=== PATIENT | female | born 1965 | race Caucasian/White ===

== ENCOUNTER 2018-10-03 20:41 | Inpatient (IN) | payer SELFPAY ==
[~2018-10-03] VITALS: Ht 185.4 cm; Wt 104.3 kg
[2018-10-03] MEDS ORDERED: BUPIVACAINE 0.5% 30 ML (SENSORCAINE) VIAL ONE (21:03)
[2018-10-03] MEDS ORDERED: BUPIVACAINE 0.5% 30 ML (SENSORCAINE) VIAL INJ ONE (21:30)
--- NOTE | 2018-10-03 21:31 | ED Lower Extremity ---
General Chief Complaint: Lower Extremity Stated Complaint: R TOE INFECTION Nursing Triage Note: pt cut her ingrown toenail out a month and a half ago. Pt left big toe is infected et draining. Pt soaked toe in epsom salt and betadine. Nursing Sepsis Screen: No Definite Risk Source: patient Exam Limitations: no limitations History of Present Illness Date Seen by Provider: Oct 03, 2018 Time Seen by Provider: 21:28 Initial Comments To ER left great toe redness swelling and pain this is been ongoing for about 3 days, she saw primary care for this and was started on antibiotic cephalexin. Denies improvement and she then stubbed her toe, since then and has burst open and is now draining pus. Onset: just prior to arrival Severity: moderate Pain/Injury Location: left 1st toe Method of Injury: unknown Allergies and Home Medications Allergies Coded Allergies: cephalexin (Verified Allergy, Mild, 10/04/18) ciprofloxacin (Verified Allergy, Mild, 10/04/18) nitrofurantoin (Verified Allergy, Mild, 10/04/18) Uncoded Allergies: TAPE (Allergy, Intermediate, 10/04/18) BACTRIUM (Allergy, Mild, 10/04/18) CODIENE (Allergy, Mild, 10/04/18) Home Medications Cephalexin 500 Mg Capsule, 500 MG PO TID, (Reported) 10 DAY SUPPLY FILLED 09-26-18 Ibuprofen 200 Mg Tablet, 800 MG PO Q8H PRN for PAIN-MILD, (Reported) Patient Home Medication List Home Medication List Reviewed: Yes Review of Systems Constitutional: see HPI; No chills, No fever EENTM: see HPI Respiratory: no symptoms reported Cardiovascular: no symptoms reported Genitourinary: no symptoms reported Musculoskeletal: see HPI Skin: no symptoms reported Psychiatric/Neurological: No Symptoms Reported Past Ptbqxhe-Yqhrwx-Ildqwr Hx Patient Social History Alcohol Use: Occasionally Uses Alcohol Beverage of Choice: Beer Recreational Drug Use: No Smoking Status: Current Everyday Smoker Recent Foreign Travel: No Contact w/Someone Who Travel: No Recent Infectious Disease Expo: Yes Recent Hopitalizations: No Immunizations Up To Date PED Vaccines UTD: Yes Seasonal Allergies Seasonal Allergies: No Past Medical History Surgeries: Yes (L KNEE) Section, Orthopedic Respiratory: No Cardiac: No Neurological: No Genitourinary: No Gastrointestinal: No Musculoskeletal: Yes (ATHRITIS OF THE LUMBAR SPINE) Arthritis Endocrine: No HEENT: No Cancer: No Psychosocial: No Integumentary: No Blood Disorders: No Adverse Reaction/Blood Tranf: No Physical Exam Vital Signs Vital Signs - First Documented 10/03/18 20:47 Temp 98.8 B/P (MAP) 162/68 (99) Pulse Ox 100 Capillary Refill : Less Than 3 Seconds Height, Weight, BMI Height: 6'1.00" Weight: 230lbs. oz. 104.921777ym; BMI Method:Stated General Appearance: WD/WN, no apparent distress Respiratory: no respiratory distress, no accessory muscle use Hips: bilateral hip non-tender, bilateral hip normal inspection, bilateral hip normal range of motion Legs: bilateral leg non-tender, bilateral leg normal inspection, bilateral leg normal range of motion Knees: bilateral knee non-tender, bilateral knee normal inspection, bilateral knee normal range of motion Ankles: bilateral ankle non-tender Feet: left foot other (swelling redness and fluctuance with some drainage of purulent material to the dorsal aspect proximal phalanx left great toe. There is an associated paronychia to the lateral aspect of the great toenail.) Neurologic/Psychiatric: alert, normal mood/affect, oriented x 3 Skin: normal color Procedures/Interventions I&D : Blade Size: 11 Progress Anesthetize recently with bupivacaine and locally with 5 mL of 1% lidocaine without epinephrine. Incision was made with an area of maximum fluctuance with an 11 blade scalpel. Large amount of purulent material expressed. The ingrown toenail/paronychia was treated with removal of the great toenail. A large amount of present material came from this as well, there does seem to be a tract between the paronychia and the abscess to the dorsal aspect proximal phalanx. Progress/Results/Core Measures Results/Orders Micro Results Microbiology 10/03/18 Gram Stain - Final, Resulted 10/03/18 Wound Culture - Preliminary, Resulted Gram Pos Mixed Bacterial Raissa My Orders Orders - MELIZA KEARNS APRN Bupivacaine 0.5% Injection (Sensorcaine (10/03/18 21:30) Rx-Hydrocodone/Apap 5-325 Mg (Rx-Vicodin (10/03/18 21:45) Sulfamethoxazole/Trimet Ds Tab (Bactrim (10/03/18 21:45) Lidocaine 1% Inj 20 Ml (Xylocaine 1% Inj (10/03/18 21:46) Foot, Left, 3 Views (10/03/18 21:59) Cbc With Automated Diff (10/03/18 22:24) Comprehensive Metabolic Panel (10/03/18 22:24) Blood Culture (10/03/18 22:24) Protime With Inr (10/03/18 22:24) Lactic Acid Analyzer (10/03/18 22:24) Piperacillin/Tazobactam (Bulk) (Zosyn In (10/03/18 22:30) Medications Given in ED Vital Signs/I&O 10/03/18 20:47 Temp 98.8 B/P (MAP) 162/68 (99) Pulse Ox 100 Blood Pressure Mean: 99 Departure Communication (Admissions) Time/Spoke to Admitting Phy: 22:31 Did an x-ray, shows erosion of the tip of the great toe. Discussed this with Dr. Dr. Hernadez. We'll admit for IV antibiotics, use Zosyn and vancomycin consult Dr. Francis in the morning. Superficial and deep peroneal nerves were blocked at the anterior aspect of the ankle using 0.5% bupivacaine 6 ml Impression Primary Impression: Abscess of left great toe Additional Impression: Paronychia due to ingrown nail Disposition: ADMITTED INPATIENT Condition: Stable Admissions Decision to Admit Reason: Admit from ER (General) Decision to Admit/Date: Oct 03, 2018 Time/Decision to Admit Time: 22:00 Departure-Patient Inst. Decision time for Depature: 21:30 Referrals: SUKI HERNADEZ DO (PCP/Family) Primary Care Physician Patient Instructions: Paronychia, Skin Abscess Add. Discharge Instructions: 1. Return to the emergency room for any concerns 2. Follow-up with Dr. Dr. Hernadez later this week for recheck. Call tomorrow to make an appointment to be seen either tomorrow or the next day.. Continue to take the cephalexin, at the Bactrim antibiotics. Pain medication as directed. You may shower starting tomorrow letting water run over this but do not soak it in water such as a hot tub or swimming pool for 1-2 weeks. All discharge instructions reviewed with patient and/or family. Voiced understanding. Copy Copies To 1: SUKI HERNADEZ PETER J APRN Oct 03, 2018 21:31
[2018-10-03] MEDS ORDERED: RX-HYDROCODONE/APAP 5/325 MG #4 TAB PK PO PRN (21:45)
[2018-10-03] MEDS ORDERED: TRIM/SULFAMETH 160/800 (SEPTRA DS) TAB PO ONE (21:45)
[2018-10-03] MEDS ORDERED: LIDOCAINE 1% INJ 20 ML 20 ML VIAL ONE (21:46)
[2018-10-03] MEDS ORDERED: HYDR-4226 PO (22:03)
[2018-10-03] MEDS ORDERED: SULF1TAB35 PO (22:03)
[2018-10-03] MEDS ORDERED: PIPERACILLIN/TAZOBACTAM (BULK) 4.5 GM in NS (IVPB) 100 ML IV ONE (22:30)
[2018-10-03] MEDS ORDERED: PIPERACILLIN/TAZO 4.5 GM VIAL (ZOSYN) IV ONE (22:37)
[2018-10-03] MEDS ORDERED: NS (IVPB) 100 ML ONE (22:37)
[2018-10-03] MEDS ORDERED: ALPRAZolam 0.25 MG (XANAX) TAB PO ONE (22:45)
[2018-10-03 23:22] LABS: BASOPHILS # (AUTO) 0.1 10^3/uL (0.0-0.1); BASOPHILS % (AUTO) 0 % (0-10); EOSINOPHILS # (AUTO) 0.1 10^3/uL (0.0-0.3); EOSINOPHILS % (AUTO) 1 % (0-10); HEMATOCRIT 42 % (35-52); HEMOGLOBIN 13.9 G/DL (11.5-16.0); LYMPHOCYTES # (AUTO) 3.4 X 10^3 (1.0-4.0); LYMPHOCYTES % (AUTO) 30 % (12-44); MEAN CORPUSCULAR HEMOGLOBIN 29 PG (25-34); MEAN CORPUSCULAR HGB CONC 33 G/DL (32-36); MEAN CORPUSCULAR VOLUME 88 FL (80-99); MEAN PLATELET VOLUME 10.7 FL (7.4-10.4); MONOCYTES # (AUTO) 0.6 X 10^3 (0.0-1.0); MONOCYTES % (AUTO) 6 % (0-12); NEUTROPHILS # (AUTO) 7.1 X 10^3 (1.8-7.8); NEUTROPHILS % (AUTO) 63 % (42-75); PLATELET COUNT 259 10^3/uL (130-400); RED CELL DISTRIBUTION WIDTH 16.9 % (10.0-14.5); WHITE BLOOD COUNT 11.3 10^3/uL (4.3-11.0)
[2018-10-03 23:35] LABS: INR 1.2 (0.8-1.4); PROTHROMBIN TIME PATIENT 15.5 SEC (12.2-14.7)
[2018-10-03 23:44] LABS: ALANINE AMINOTRANSFERASE 13 U/L (0-55); ALBUMIN 4.1 GM/DL (3.2-4.5); ALKALINE PHOSPHATASE 64 U/L (40-136); BILIRUBIN,TOTAL 1.1 MG/DL (0.1-1.0); BUN/CREATININE RATIO 15; CALCIUM 9.8 MG/DL (8.5-10.1); CARBON DIOXIDE 20 MMOL/L (21-32); CHLORIDE 105 MMOL/L (98-107); CREATININE SERUM 0.86 MG/DL (0.60-1.30); GFR ESTIMATED > 60; GLUCOSE 141 MG/DL (70-105); POTASSIUM 3.7 MMOL/L (3.6-5.0); SODIUM 139 MMOL/L (135-145)
[2018-10-04] VITALS (7 sets, daily range): BP systolic 98–124; BP diastolic 68–87
[2018-10-04] MEDS ORDERED: VANCOMYCIN 1 GM/NS 250 ML IVPB IV SCH ×2 (01:06)
[2018-10-04] MEDS ORDERED: VANCOMYCIN INJECTION 1GM (OMNI 250 ML IV ONE (01:36)
[2018-10-04] MEDS: LACTATED RINGERS 1,000 ML IV SCH ×4 (01:39→20:09)
[2018-10-04] MEDS ORDERED: PIPERACILLIN/TAZO 4.5 GM VIAL (ZOSYN) IV ONE (04:34)
[2018-10-04] MEDS ORDERED: NS (IVPB) 100 ML ONE (04:35)
[2018-10-04] MEDS: PIPERACILLIN/TAZO 4.5 GM/NS 100 ML IV SCH ×6 (04:52→20:08)
[2018-10-04] MEDS: HYDROcodone/APAP 5 MG/325 MG (LORTAB) TAB PO PRN ×2 (05:10→21:47)
[2018-10-04 05:33] LABS: BASOPHILS % (AUTO) 0 % (0-10); EOSINOPHILS # (AUTO) 0.1 10^3/uL (0.0-0.3); EOSINOPHILS % (AUTO) 1 % (0-10); HEMATOCRIT 39 % (35-52); HEMOGLOBIN 12.9 G/DL (11.5-16.0); LYMPHOCYTES # (AUTO) 2.6 X 10^3 (1.0-4.0); LYMPHOCYTES % (AUTO) 31 % (12-44); MEAN CORPUSCULAR HEMOGLOBIN 29 PG (25-34); MEAN CORPUSCULAR HGB CONC 33 G/DL (32-36); MEAN CORPUSCULAR VOLUME 88 FL (80-99); MEAN PLATELET VOLUME 10.8 FL (7.4-10.4); MONOCYTES # (AUTO) 0.5 X 10^3 (0.0-1.0); MONOCYTES % (AUTO) 5 % (0-12); NEUTROPHILS # (AUTO) 5.3 X 10^3 (1.8-7.8); NEUTROPHILS % (AUTO) 63 % (42-75); PLATELET COUNT 214 10^3/uL (130-400); RED CELL DISTRIBUTION WIDTH 16.7 % (10.0-14.5); WHITE BLOOD COUNT 8.5 10^3/uL (4.3-11.0)
[2018-10-04 05:52] LABS: ALANINE AMINOTRANSFERASE 11 U/L (0-55); ALBUMIN 3.6 GM/DL (3.2-4.5); ALKALINE PHOSPHATASE 54 U/L (40-136); BILIRUBIN,TOTAL 1.2 MG/DL (0.1-1.0); BUN/CREATININE RATIO 17; CALCIUM 9.4 MG/DL (8.5-10.1); CARBON DIOXIDE 20 MMOL/L (21-32); CHLORIDE 108 MMOL/L (98-107); CREATININE SERUM 0.75 MG/DL (0.60-1.30); GFR ESTIMATED > 60; GLUCOSE 130 MG/DL (70-105); POTASSIUM 3.6 MMOL/L (3.6-5.0); SODIUM 139 MMOL/L (135-145); TOTAL PROTEIN 6.2 GM/DL (6.4-8.2)
--- NOTE | 2018-10-04 07:30 | Diagnostic Imaging Report ---
Clinical indication: Pain and abscess of the left foot great toe. Checking for infection. Exam: X-ray left foot, 3 views. Comparison: None. Findings: There is soft tissue swelling involving the first toe. There is significant bony erosions and destructive appearance of the distal phalanx of the first digit concerning for osteomyelitis. This erosive appearance extends to the first IP joint. There is no subcutaneous air seen. There is no other areas of bony erosive or destructive changes seen. There are mildly hypertrophic spurs involving first MTP joint. There is spurring of the posterior aspect of the fifth metatarsal bone. Hypertrophic calcaneal spurs at the plantar and Achilles attachment is seen. There is mild spurring of the dorsal midfoot. Impression: 1.: There is soft tissue swelling adjacent to the first toe. There is bony erosive change and bony destructive appearance of the distal phalanx of the first toe concerning for osteomyelitis. 2: Degenerative disease of the left foot. Dictated by: Dictated on workstation # [id number]
--- NOTE | 2018-10-04 08:10 | History & Physicial ---
History of Present Illness History of Present Illness Reason for visit/HPI Patient came out to emergency room last night. Patient has history of ingrown toenail 6 weeks ago area Patient cardioversion toenail. Patient was on Keflex and doing better. Patient hit her left big toe again and started to hurt got infected Patient has a left big toe abscess and had trouble walking. Patient use better 9 and soaked in Epsom salt. X-ray of big toe shows osteomyelitis. Previous surgeries to knees operations, , and tubal ligation Date of Admission Oct 03, 2018 at 22:33 Time Seen by a Provider: 08:05 I consulted on this patient on 10/04/18 08:05 Attending Physician Chente Hernadez DO Admitting Physician Chente Hernadez DO Consult Allergies and Home Medications Allergies Coded Allergies: cephalexin (Verified Allergy, Mild, 10/04/18) ciprofloxacin (Verified Allergy, Mild, 10/04/18) nitrofurantoin (Verified Allergy, Mild, 10/04/18) Uncoded Allergies: TAPE (Allergy, Intermediate, 10/04/18) BACTRIUM (Allergy, Mild, 10/04/18) CODIENE (Allergy, Mild, 10/04/18) Home Medications Hydrocodone/Acetaminophen 1 Each Tablet, 1 TAB PO Q6H Do not fill unless Bactrim is also filled Prescribed by: MELIZA KEARNS on 10/03/182202 Sulfamethoxazole/Trimethoprim 1 Each Tablet, 1 EACH PO BID Prescribed by: MELIZA KEARNS on 10/03/182202 Patient Home Medication List Home Medication List Reviewed: No Past Ebwmygv-Dojsdq-Snnblm Hx Patient Social History Alcohol Use: Occasionally Uses Alcohol Beverage of Choice: Beer Recreational Drug Use: No Smoking Status: Current Everyday Smoker Recent Foreign Travel: No Contact w/other who traveled: No Recent Hopitalizations: No Recent Infectious Disease Expo: Yes Immunizations Up To Date Pediatric: Yes Seasonal Allergies Seasonal Allergies: No Surgeries Yes (L KNEE) Section, Orthopedic Respiratory No Cardiovascular No Neurological No Genitourinary No Gastrointestinal No Musculoskeletal Yes (ATHRITIS OF THE LUMBAR SPINE) Arthritis Endocrine History of Endocrine Disorders: No HEENT History of HEENT Disorders: No Cancer No Psychosocial History of Psychiatric Problem: No Integumentary History of Skin or Integumenta: No Blood Transfusions History of Blood Disorders: No Adverse Reaction to a Blood Tr: No Review of Systems Constitutional: no symptoms reported, other EENTM: no symptoms reported Respiratory: no symptoms reported Cardiovascular: no symptoms reported Gastrointestinal: no symptoms reported Genitourinary: no symptoms reported Physical Exam Vital Signs Vital Signs - First Documented 10/03/18 10/03/18 20:47 23:36 Temp 98.8 Pulse 73 Resp 18 B/P (MAP) 162/68 (99) Pulse Ox 100 O2 Delivery Room Air Capillary Refill : Less Than 3 Seconds Height, Weight, BMI Height: 6'1.00" Weight: 230lbs. oz. 104.484024ck; BMI Method:Stated General Appearance: No Apparent Distress, WD/WN Eyes: Bilateral Eye Normal Inspection HEENT: Normal ENT Inspection Neck: Full Range of Motion, Normal Inspection Respiratory: Chest Non Tender, Lungs Clear, No Accessory Muscle Use, No Respiratory Distress Cardiovascular: Regular Rate, Rhythm, No Murmur Gastrointestinal: Non Tender, Soft Assessment/Plan Assessment and Plan Osteomyelitis of left big toe. Abscess left big toe 2 Admission Diagnosis Admission Status: Observation Clinical Quality Measures DVT/VTE Risk/Contraindication: Risk Factor Score Per Nursin RFS Level Per Nursing on Admit: 4+=Very High CHENTE HERNADEZ DO Oct 04, 2018 08:10
[2018-10-04] MEDS: NICOTINE 2 MG LOZENGE (COMMIT) MM PRN ×3 (08:32→19:43)
[2018-10-04] MEDS ORDERED: NICOTINE 21 MG (NICODERM) PATCH TD SCH (09:00)
[2018-10-04] MEDS ORDERED: IBUP-30 PO (09:09)
[2018-10-04] MEDS ORDERED: CEPH500C PO (09:09)
--- NOTE | 2018-10-04 09:10 | NUR ---
SPOKE WITH THE PATIENT ABOUT HER MEDICATIONS. SHE STATES SHE WAS TAKING KEFLEX PRIOR TO ADMISSION, I ADDED IT TO THE MED REC AND VERIFIED DATE, DIRECTIONS, AND QUANTITY WITH THE EXT MED HX. SHE STATES SHE TAKES IBU OTC NEEDED. SHE REPORTS SHE TAKES 5 AT A TIME HOWEVER I ENTERED IT ON THE MED REC THE RECOMMENDED DOSE OF 4 TABS PRN. THE ER LOOKS LIKE THEY WERE GOING TO PRESCRIBED SOME MEDICATION AND THEY WERE PRINTED HOWEVER PATIENT WAS ADMITTED, I REMOVED THOSE NEW ORDERS FROM THE MED REC AT THIS TIME.
[2018-10-04] MEDS: VANCOMYCIN 1,750 MG/NS 500 ML IVPB IV SCH ×4 (10:32→23:44)
--- NOTE | 2018-10-04 12:47 | Podiatry Progress Note ---
Standard Progress Note Progress Notes/Assess & Plan Date Seen by a Provider: Oct 04, 2018 Time Seen by a Provider: 12:43 Progress/Assessment & Plan Consult dictated. Continue with IV antibiotics and wound care. Discussed amputation of the left hallux with patient and will anticipate surgery tomorrow morning or Tuesday depending on patient's response to current therapy. Final Diagnosis Osteomyelitis left hallux. BAEL LAZCANO DPM Oct 04, 2018 12:47
[2018-10-04] MEDS: SILVASORB GEL 1.5 OZ TP SCH ×2 (14:01→20:09)
--- NOTE | 2018-10-04 15:11 | CONSULTATION REPORT ---
DATE OF SERVICE: REASON FOR CONSULTATION: Footcare, left. HISTORY OF PRESENT ILLNESS: This 53-year-old female was admitted through the ER secondary to a painful left foot. She indicates that about approximately a month ago, she was working on her ingrown toenail which may have caused more of a problem for the foot in regard to infection. She noticed that the foot became more painful, swollen, and drained some purulence. Since she had an incision and drainage performed last night through the ER and with her IV antibiotics, her foot is feeling much better and she denies any current fever, chills, nausea or vomiting. PAST MEDICAL HISTORY: Includes knee surgery, section and orthopedic surgery. She reports arthritis of the lumbar spine. SOCIAL HISTORY: The patient has an occasional beer. She is a current every day smoker. She denies illicit drug use. ALLERGIES: THE PATIENT IS ALLERGIC TO BACTRIM, CODEINE, TAPE, CEPHALEXIN AND NITROFURANTOIN. PHYSICAL EXAMINATION: VITAL SIGNS: The patient is currently afebrile. LOWER EXTREMITY EXAMINATION: The patient has palpable pedal pulses, left foot. Light touch sensation is grossly intact, left foot. She does have some edema, left foot but not excessive as compared to the contralateral limb. The patient has an erythematous left hallux to the midpoint of the proximal phalanx. No proximal streaking. No malodor. There is a full thickness wound to the dorsal aspect of the interphalangeal joint that measures approximately 5 x 5 mm. There is no nail plate left hallux with underlying fibrotic and tissue. LABORATORY DATA: X-rays were reviewed, which indicate significant destruction of the distal phalanx with osteolysis noted. Currently, the x-rays of the proximal phalanx shows no significant osteolysis. White cell count was 11.3 yesterday and this morning it is 8.5. The microbiology report has not come back for the culture and sensitivity. ASSESSMENT: Osteomyelitis of distal phalanx, left hallux and abscess, left hallux. PLAN: Various treatment options were discussed with the patient today. We discussed conservative and surgical options. In my opinion, the surgical options is the conservative treatment, which will include removal of the infected distal phalanx with the possibility of removal of the proximal phalanx depending on clinical signs and symptoms surgically. She will continue with her IV antibiotics. Since she has had a remarkable reduction in symptoms and clinical appearance from yesterday to today with the short dose of IV antibiotics, we will continue with that treatment. We will go to surgical treatment either tomorrow or the following day depending on her clinical reaction to current treatment. She is to have wound care performed twice a day with Silvadene and Xeroform and continue with her IV antibiotics. Job ID: [id number] DocumentID: [id number] Dictated Date: 10/04/2018 12:54:00 Network Support Analyst Date: 10/04/2018 15:10:23 Dictated By: RUDY SNIDER
--- NOTE | 2018-10-04 18:30 | NUR ---
DR SHAH HERE TO SEE PATIENT. HE WILL DO SURGERY ON TUESDAY. CONSENT SIGNED, ADD ON FAXED TO SURGERY, CONFERENCE MANAGER NOTIFIED AND MRSA NASAL SWAB COLLECTED. PATIENT WILL BE NPO AT MIDNIGHT TUESDAY NIGHT. DR LAZCANO UNDID THE DRESSING TO LOOK AT THE LEFT GREAT TOE. DRESSING REAPPLIED TO LEFT GREAT TOE. PATIENT TOLERATED THE PROCEDURE WELL.
[2018-10-04] MEDS: LORazepam INJ 2 MG/ML (ATIVAN) VIAL IVP PRN (23:45)
[2018-10-05 04:30] VITALS: BP 116/92
[2018-10-05] MEDS: PIPERACILLIN/TAZO 4.5 GM/NS 100 ML IV SCH ×6 (04:35→20:13)
[2018-10-05] MEDS: LACTATED RINGERS 1,000 ML IV SCH ×4 (04:35→20:13)
[2018-10-05 07:00] LABS: BASOPHILS % (AUTO) 1 % (0-10); EOSINOPHILS # (AUTO) 0.1 10^3/uL (0.0-0.3); EOSINOPHILS % (AUTO) 2 % (0-10); HEMATOCRIT 39 % (35-52); HEMOGLOBIN 12.9 G/DL (11.5-16.0); LYMPHOCYTES # (AUTO) 2.4 X 10^3 (1.0-4.0); LYMPHOCYTES % (AUTO) 36 % (12-44); MEAN CORPUSCULAR HEMOGLOBIN 29 PG (25-34); MEAN CORPUSCULAR HGB CONC 33 G/DL (32-36); MEAN CORPUSCULAR VOLUME 88 FL (80-99); MEAN PLATELET VOLUME 10.8 FL (7.4-10.4); MONOCYTES # (AUTO) 0.3 X 10^3 (0.0-1.0); MONOCYTES % (AUTO) 5 % (0-12); NEUTROPHILS # (AUTO) 3.9 X 10^3 (1.8-7.8); NEUTROPHILS % (AUTO) 57 % (42-75); PLATELET COUNT 214 10^3/uL (130-400); RED CELL DISTRIBUTION WIDTH 16.9 % (10.0-14.5); WHITE BLOOD COUNT 6.8 10^3/uL (4.3-11.0)
--- NOTE | 2018-10-05 07:43 | Progress Note ---
Subjective Time Seen by a Provider: 07:41 Subjective/Events-last exam Patient feeling better today. Patient had: No pain. Patient have surgery tomorrow. Patient anxious Focused Exam Lactate Level 10/03/18 23:08: Lactic Acid Level 1.70 Objective Exam Vital Signs Date Time Temp Pulse Resp B/P (MAP) Pulse Ox O2 Delivery O2 Flow Rate FiO2 10/05/18 04:30 97.4 91 18 116/92 (100) 96 Room Air 10/04/18 23:57 98.2 89 20 115/79 (91) 97 Room Air 10/04/18 20:00 Room Air 10/04/18 20:00 97.4 94 20 110/80 (90) 98 Room Air 10/04/18 16:18 98.3 88 20 98/68 (78) 95 Room Air 10/04/18 12:00 97.5 91 20 124/87 (99) 98 Room Air 10/04/18 08:00 99 Room Air 10/04/18 08:00 97.5 93 20 117/82 (94) 99 Room Air I & O 10/05/18 07:00 Intake Total 4557.5 ml Output Total 2600 ml Balance 1957.5 ml Capillary Refill : Less Than 3 Seconds General Appearance: No Apparent Distress, WD/WN HEENT: Normal ENT Inspection Neck: Full Range of Motion, Normal Inspection Respiratory: Lungs Clear, No Accessory Muscle Use, No Respiratory Distress Cardiovascular: Regular Rate, Rhythm, No Murmur Gastrointestinal: non tender, soft Results Lab Laboratory Tests 10/05/18 06:35 Laboratory Tests 10/05/18 06:35: White Blood Count 6.8, Red Blood Count 4.43, Hemoglobin 12.9, Hematocrit 39, Mean Corpuscular Volume 88, Mean Corpuscular Hemoglobin 29, Mean Corpuscular Hemoglobin Concent 33, Red Cell Distribution Width 16.9H, Platelet Count 214, Mean Platelet Volume 10.8H, Neutrophils (%) (Auto) 57, Lymphocytes (%) (Auto) 36, Monocytes (%) (Auto) 5, Eosinophils (%) (Auto) 2, Basophils (%) (Auto) 1, N eutrophils # (Auto) 3.9, Lymphocytes # (Auto) 2.4, Monocytes # (Auto) 0.3, Eosinophils # (Auto) 0.1, Basophils # (Auto) 0.0 Microbiology 10/03/18 Blood Culture - Preliminary, Resulted No growth Assessment/Plan Assessment/Plan Assess & Plan/Chief Complaint Osteomyelitis of the left big toe distal Clinical Quality Measures Admission Status Admission Dx Osteomyelitis of left big toe. Abscess left big toe 2 DVT/VTE Risk/Contraindication: Risk Factor Score Per Nursin RFS Level Per Nursing on Admit: 4+=Very High Contraindications-Pharm: Other *list below* SUKI HERNADEZ DO Oct 05, 2018 07:43
[2018-10-05 08:00] VITALS: BP 116/84
[2018-10-05] MEDS ORDERED: TROUGH ORDER-PHARMACY XX ONE (09:00)
[2018-10-05] MEDS: VANCOMYCIN 1,750 MG/NS 500 ML IVPB IV SCH ×2 (10:10)
[2018-10-05] MEDS: SILVASORB GEL 1.5 OZ TP SCH ×2 (10:10→20:14)
--- NOTE | 2018-10-05 10:13 | NUR ---
PTD VANCOMYCIN LABS: SCR 0.75 VANCOMYCIN TROUGH 18 PLAN: CONTINUE WITH CURRENT DOSING.
[2018-10-05 12:00] VITALS: BP 119/87
--- NOTE | 2018-10-05 12:38 | Podiatry Progress Note ---
Standard Progress Note Progress Notes/Assess & Plan Date Seen by a Provider: Oct 05, 2018 Time Seen by a Provider: 12:33 Progress/Assessment & Plan The patient indicated that the pain is much improved and can now "touch the toe" without terrible pain. No indication of F/C/N/V. There is decreased erythema and edema to the left hallux. Serosanguineous drainage is noted to the dressing. No mal-odor. No proximal streaking noted. Laboratory Tests 10/05/18 06:35: White Blood Count 6.8, Red Blood Count 4.43, Hemoglobin 12.9, Hematocrit 39, Mean Corpuscular Volume 88, Mean Corpuscular Hemoglobin 29, Mean Corpuscular Hemoglobin Concent 33, Red Cell Distribution Width 16.9H, Platelet Count 214, Mean Platelet Volume 10.8H, Neutrophils (%) (Auto) 57, Lymphocytes (%) (Auto) 36, Monocytes (%) (Auto) 5, Eosinophils (%) (Auto) 2, Basophils (%) (Auto) 1, Neutrophils # (Auto) 3.9, Lymphocytes # (Auto) 2.4, Monocytes # (Auto) 0.3, Eosinophils # (Auto) 0.1, Basophils # (Auto) 0.0 10/05/18 09:10: Vancomycin Level Trough 18.0 Microbiology 10/03/18 Blood Culture - Preliminary, Resulted No growth A/P: Onsteomyelitis left hallux Continue with IV antibiotics and wound care. Discussed amputation of the left hallux with patient and will anticipate surgery Tuesday. She is to be NPO 8 hours prior to surgery. Final Diagnosis Osteomyelitis, left hallux ABEL LAZCANO DPM Oct 05, 2018 12:38
--- NOTE | 2018-10-05 14:31 | Physician Query Clarification ---
PQ-Further Specificity Admission/Discharge Admission Date: Oct 03, 2018 at 22:33 Discharge Date: The medical record reflects the following clinical scenario: History/Risk Factors: Abscess lt great toe, ingrown toenail, paronychia Clinical Findings: redness, swelling, draining pus Lt. great toe Treatment: IV Zosyn, IV Vancomycin, I&D lt great toe Question: Can you further specify the depth of the incision and drainage of the LT great toe per the clinical indicators above? Please document a response in the Progress Notes or Discharge Summary. 1. Subcutaneous 2. bone 3. skin 4. Other, with explanation of the clinical findings. 5. Clinically undetermined, no explanation for the clinical findings. PHYSICIAN RESPONSE Can you specify per above: 1 Please remember a lack of response to the above will prompt a phone page by CDI/Coding staff. In responding to this query, please exercise your independent professional judgment. The purpose of this communication is to more accurately reflect the complexity of your patients condition. The fact that a question is asked does not imply that any particular answer is desired or expected. Thank you for your timely response to this clarification. Requestors name: [place] THIS PHYSICIAN QUERY FORM IS A PERMANENT PART OF THE MEDICAL RECORD RIO GO Oct 05, 2018 14:30 MELIZA KEARNS APRN Oct 07, 2018 10:25
[2018-10-05 15:30] VITALS: BP 112/79
[2018-10-05] MEDS: ALPRAZolam 0.25 MG (XANAX) TAB PO PRN (15:37)
[2018-10-05] MEDS: LORazepam INJ 2 MG/ML (ATIVAN) VIAL IVP PRN (19:39)
[2018-10-05 20:15] VITALS: BP 113/80
[2018-10-06] VITALS (10 sets, daily range): BP systolic 110–135; BP diastolic 73–90
[2018-10-06] MEDS: VANCOMYCIN 1,750 MG/NS 500 ML IVPB IV SCH ×6 (00:07→23:58)
[2018-10-06] MEDS: HYDROcodone/APAP 5 MG/325 MG (LORTAB) TAB PO PRN ×2 (00:09→20:00)
[2018-10-06] MEDS: ALPRAZolam 0.25 MG (XANAX) TAB PO PRN (00:10)
[2018-10-06] MEDS: LACTATED RINGERS 1,000 ML IV SCH ×5 (04:31→19:55)
[2018-10-06] MEDS: PIPERACILLIN/TAZO 4.5 GM/NS 100 ML IV SCH ×6 (04:31→19:55)
--- NOTE | 2018-10-06 07:35 | Progress Note ---
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 Patient anxious. Surgery at 1 p.m. today Focused Exam Lactate Level 10/03/18 23:08: Lactic Acid Level 1.70 Objective Exam Vital Signs Date Time Temp Pulse Resp B/P (MAP) Pulse Ox O2 Delivery O2 Flow Rate FiO2 10/06/18 04:55 97.5 91 18 110/73 (85) 97 Room Air 10/06/18 00:13 96.9 65 17 126/74 (91) 94 Room Air 10/05/18 20:30 Room Air 10/05/18 20:15 97.9 99 20 113/80 (91) 99 Room Air 10/05/18 15:30 98.1 93 20 112/79 (90) 98 Room Air 10/05/18 12:00 97.6 91 18 119/87 (98) 96 Room Air 10/05/18 08:00 99 Room Air 10/05/18 08:00 96.2 86 18 116/84 (95) 98 Room Air I & O 10/06/18 07:00 Intake Total 5537.5 ml Output Total 3950 ml Balance 1587.5 ml Capillary Refill : Less Than 3 Seconds General Appearance: No Apparent Distress, WD/WN HEENT: Normal ENT Inspection Neck: Full Range of Motion, Normal Inspection Respiratory: Lungs Clear, No Accessory Muscle Use, No Respiratory Distress Cardiovascular: Regular Rate, Rhythm, No Murmur Gastrointestinal: non tender, soft Results Lab Laboratory Tests 10/05/18 09:10: Vancomycin Level Trough 18.0 Microbiology 10/03/18 Blood Culture - Preliminary, Resulted No growth 10/04/18 MRSA Screen - Final, Complete MRSA not isolated 10/03/18 Gram Stain - Final, Resulted 10/03/18 Wound Culture - Preliminary, Resulted Gram Pos Mixed Bacterial Raissa Assessment/Plan Assessment/Plan Assess & Plan/Chief Complaint Osteomyelitis of the left big toe distal. . 10/05/18. Patient had surgery today. Amputation of big toe. Podiatry to do Clinical Quality Measures Admission Status Admission Dx Osteomyelitis of left big toe. Abscess left big toe 2 DVT/VTE Risk/Contraindication: Risk Factor Score Per Nursin RFS Level Per Nursing on Admit: 4+=Very High Contraindications-Pharm: Other *list below* SUKI HERNADEZ DO Oct 06, 2018 07:35
[2018-10-06] MEDS: LORazepam INJ 2 MG/ML (ATIVAN) VIAL IVP PRN ×2 (10:16→20:00)
[2018-10-06] MEDS: SILVASORB GEL 1.5 OZ TP SCH ×2 (10:52→19:45)
[2018-10-06] MEDS ORDERED: BUPIVACAINE 0.5% 30 ML (SENSORCAINE) VIAL ONE (13:56)
[2018-10-06] MEDS ORDERED: LIDOCAINE 1% INJ 20 ML 20 ML VIAL ONE (13:56)
[2018-10-06] MEDS ORDERED: MIDAZOLAM 2 MG/2 ML (VERSED) VIAL ONE (14:29)
--- NOTE | 2018-10-06 14:33 | NUR ---
1425 TAKEN DOWN TO PREOP --
--- NOTE | 2018-10-06 14:42 | Progress Note-Pre Operative ---
Pre-Operative Progress Note H&P Reviewed The H&P was reviewed, patient examined and no changes noted. Date Seen by Provider: Oct 06, 2018 Time Seen by Provider: 14:42 Date H&P Reviewed: Oct 06, 2018 Time H&P Reviewed: 14:42 Pre-Operative Diagnosis: Osteomyelitis of the left hallux ABEL LAZCANO DPM Oct 06, 2018 14:42
[2018-10-06] MEDS ORDERED: VANCOMYCIN 1000 MG/VIAL ONE (14:48)
[2018-10-06] MEDS ORDERED: PROPOFOL INJECTION 50 ML IV ONE (15:16)
--- NOTE | 2018-10-06 15:32 | Progress Note-Post Operative ---
Post-Operative Progess Note Surgeon (s)/Inflated Pad Buffer (s) Surgeon ABEL LAZCANO DPM Inflated Pad Buffer: none Pre-Operative Diagnosis Osteomyelitis of the left hallux Post-Operative Diagnosis Same Procedure & Operative Findings Date of Procedure 10/06/18 Procedure Performed/Findings Amputation of left hallux Anesthesia Type MAC Estimated Blood Loss Estimated blood loss (mL): Minimal Specimens/Packing Specimens Removed left hallux Packing: none ABEL LAZCANO DPM Oct 06, 2018 15:32
--- NOTE | 2018-10-06 17:25 | NUR ---
1700 PT BACK TO ROOM -- REPORT FROM SOFTWARE REVERSE ENGINEER -- DR LAZCANO WAS CALLED PER FAMILY REQUEST AND HE CAME TO TO TALK TO PT
--- NOTE | 2018-10-06 18:47 | NUR ---
PT TO HAVE POST OP FEMALE SHOE TO L FT -- NO [employer] FEMALE POST OP SHOE ON [employer] WAS CALLED TO GET ONE TO FLOOR
--- NOTE | 2018-10-06 19:00 | Diagnostic Imaging Report ---
EXAMINATION: Left foot at 3:56 p.m. INDICATION: Postop. Portable AP and lateral views were obtained. FINDINGS: The previous exam of 10/03/2018 indicated osteomyelitis of the distal phalanx of the great toe. In the interval since the prior study, the patient has undergone amputation of both the proximal and distal phalanges of the great toe. There is no radiopaque foreign body identified. The overall appearance of the foot has not changed significantly otherwise. IMPRESSION: There has been an amputation of the proximal and distal phalanges of the great toe. There is no acute abnormality identified. Dictated by: Dictated on workstation # [id number]
[2018-10-07] VITALS: BP 116/82
[2018-10-07] MEDS: HYDROcodone/APAP 5 MG/325 MG (LORTAB) TAB PO PRN ×3 (00:49→20:16)
--- NOTE | 2018-10-07 01:30 | OPERATIVE REPORT ---
DATE OF SERVICE: 10/06/2018 SURGEON: Shakira Lazcano DPM. PREOPERATIVE DIAGNOSIS: Osteomyelitis, left hallux. POSTOPERATIVE DIAGNOSIS: Osteomyelitis, left hallux. PROCEDURE: Amputation of left hallux. WOUND CLASS: Contaminated. ANESTHESIA: Monitored anesthesia care. HEMOSTASIS: Pneumatic ankle tourniquet at 250 mmHg. INDICATIONS: This is a 53-year-old female who presents with an abscess and osteomyelitis of the left hallux. She was treated with IV antibiotics, which result much of her erythema and pain; however, due to the extensive damage to bone on x-ray, it was discussed whether she should have an amputation or not. My recommendation was to proceed with the removal of infected bone. She agreed with this and understands that she may lose the entire great toe. All risks and benefits of all the options were discussed at length and she is willing to proceed. DESCRIPTION OF PROCEDURE: The patient was brought back to the operating table, placed in secure supine position. Anesthesia was achieved utilizing 15 mL of 1:1 mixture of 1% Xylocaine, 0.5% Marcaine injected in a Hernandez block. Appropriate timeout course was performed. A pneumatic ankle tourniquet was placed on the left lower extremity over several layers of padding. The left foot was then prepped and draped in normal sterile manner. Left foot was then elevated, allowed to exsanguinate after which the tourniquet was inflated to 250 mmHg. Attention was then directed to the left hallux where a racquet-type incision was created starting from the medial aspect of the first metatarsophalangeal joint extending distally along the phalanx onto the dorsal aspect of the interphalangeal joint where purulent discharge was identified as soon as the incision was made. The plantar flap was also created extending distally to the distal phalanx. The distal phalanx was then disarticulated and a sample of the distal phalanx was sent for cultures and sensitivities. The rest of the distal phalanx was sent for pathology for gross and microscopic evaluation. Attention was then directed to the head of the proximal phalanx where some softening of the bone was identified. Along the dorsal aspect of the bone was extensive amount of necrosis and some purulent material. This was traced back to the base of the proximal phalanx. For sacral closure and removal of the entire infected tissue, the proximal phalanx was disarticulated and sent for gross and microscopic evaluation. No remaining necrotic tissue was identified. The tourniquet was released noting appropriate cap refill time to the plantar flap, active bleeders were cauterized as encountered. 3000 mL of normal saline with 1 gram of vancomycin was used for pulse lavage of the wound. After the washer, a swab culture was taken to confirm a bacterial free environment. The wound was then closed utilizing 4-0 Prolene in a simple interrupted type stitch. The amputation site was coapted without skin tension. Postoperative injection consisted of another 10 mL of 1:1 mixture of 1% Xylocaine, 0.5% Marcaine injected in a local infusion to the surgical site. Postoperative dressing consisted of Betadine soaked Adaptic, sterile 4 x 4, sterile Kerlix all secured with Coban wrap. The patient tolerated the anesthesia and procedure well and was transported from the operating room to the recovery area with vital signs stable and vascular status intact to all the remaining toes of the left foot. She is to be nonweightbearing on left lower extremity. We will see the patient in my office in approximately 1 week period of time or sooner if necessary. In the meantime, she will continue with IV antibiotics as dictated by her bone cultures. Job ID: [id number] DocumentID: [id number] Dictated Date: 10/06/2018 15:48:05 Repeater Chief Date: 10/07/2018 01:29:34 Dictated By: SHAKIRA LAZCANO DPM
[2018-10-07] MEDS: LACTATED RINGERS 1,000 ML IV SCH ×5 (02:50→17:09)
[2018-10-07 04:00] VITALS: BP 139/79
[2018-10-07] MEDS: PIPERACILLIN/TAZO 4.5 GM/NS 100 ML IV SCH ×6 (04:05→22:08)
[2018-10-07 08:00] VITALS: BP 128/92
[2018-10-07] MEDS: SILVASORB GEL 1.5 OZ TP SCH ×2 (08:00→22:34)
--- NOTE | 2018-10-07 08:03 | NUR ---
NOTE THAT DR LAZCANO AMP THE L GREAT TOE AND DSG IS TO STAY ON STAFF TO REINFORCE DSG -- HELD THE SILVASOR[facility] GET
[2018-10-07] MEDS: VANCOMYCIN 1,750 MG/NS 500 ML IVPB IV SCH ×4 (10:14→23:19)
--- NOTE | 2018-10-07 12:35 | Progress Note - Hospitalist ---
Subjective HPI/CC On Admission Date Seen by Provider: Oct 07, 2018 Time Seen by Provider: 11:15 Subjective/Events-last exam Patient caught in room smoking IV abx tolerated Pain meds maintained Review of Systems Musculoskeletal: foot pain Objective Exam Vital Signs Vital Signs Date Time Temp Pulse Resp B/P (MAP) Pulse Ox O2 Delivery O2 Flow Rate FiO2 10/07/18 08:00 Room Air 10/07/18 08:00 95.5 92 20 128/92 (104) 97 10/06/18 15:50 2 Capillary Refill : Less Than 3 SecondsLess Than 3 Seconds General Appearance: No Apparent Distress, WD/WN HEENT: Normal ENT Inspection Neck: Full Range of Motion, Normal Inspection Respiratory: Lungs Clear, No Accessory Muscle Use, No Respiratory Distress Cardiovascular: Regular Rate, Rhythm, No Murmur Gastrointestinal: Non Tender, Soft Extremity: Other (left foot in ortho shoe) Results/Procedures Lab Patient resulted labs reviewed. Assessment/Plan Assessment and Plan Assess & Plan/Chief Complaint Assessment: s/p amputation of big toe. Smoker Plan: IV abx Non-weight bearing Diagnosis/Problems Diagnosis/Problems (1) Amputated great toe of left foot Status: Acute (2) Smoker Status: Chronic Clinical Quality Measures DVT/VTE Risk/Contraindication: Risk Factor Score Per Nursin RFS Level Per Nursing on Admit: 4+=Very High Contraindications-Pharm: Other *list below* BRANDY CORTEZ DO Oct 07, 2018 12:35
--- NOTE | 2018-10-07 14:06 | Physical Therapy Evaluation ---
PT Evaluation-General Medical Diagnosis Admission Date Oct 03, 2018 at 22:33 Medical Diagnosis: osteomyelitis L great toe with amputation Onset Date: Oct 03, 2018 Therapy Diagnosis Therapy Diagnosis: decreased mobility Height/Weight Height (Feet): 6 Height (Inches): 1.00 Weight (Pounds): 230 Precautions Precautions/Isolations: Standard Precautions Weight Bear Status Right Lower Extremity: Right Full Weight Bearing Left Lower Extremity: Left Non Weight Bearing Referral Physician: Dr. Francis Reason for Referral: Gait Medical History Pertinent Medical History: DM Current History Pt. with poor healing wound on L great toe requiring amputation. Social History Home: Single Level Current Living Status: Other Family (mother) Entry Into Home: Stairs With Railing PT Steps Into Home: 3 Prior/Core FIM Prior Level of Function Therapy Code Descriptions/Definitions Functional [place] Measure: 0=Not Assessed/NA 4=Minimal Assistance 1=Total Assistance 5=Supervision or Setup 2=Maximal Assistance 6=Modified [place] 3=Moderate Assistance 7=Complete [place] Therapy Quality Codes: 6 Independent with activity with or without an assistive device 5 Patient requires set up or clean up by helper. Patient completes activity by themselves 4 Supervision or touching assist (CGA). [place] provide cues , steadying assist 3 The helper provides less than half the effort to complete the activity 2 The helper provides more than half the effort to complete the activity 1 Dependent. The helper does all the effort to complete an activity 7 Patient refused to complete or attempt activity 9 The patient did not perform the activity before the current illness or injury 88 Not attempted due to Medical conditions or safety concerns Functional Abilities and Goals: Independent: Patient completed the activities by him/herself, with or without an assistive device, with no assistance from a helper. Needed Some Help: Patient needed partial assistance from another person to complete activities. Dependent: A helper completed the activities for the patient. Unknown: Not Applicable: Bed Mobility: 7 Transfers (B,C,W/C) (FIM): 7 Gait: 7 Stairs: 7 PT Evaluation-Current Subjective Pt. agrees to PT, says she has already been up to the bathroom. During session, patient states she wants to go outside and smoke. She denies pain. Pt/Family Goals home with mother Objective Patient Orientation: Person, Place, Time, Situation Problem Solving: Good Attachments: IV ROM/Strength ROM Upper Extremities WNL ROM Lower Extremities WNL except focal deficit of L foot Strength Upper Extremities WNL Strength Lower Extremities Grossly 4+/5 except focal deficit of L foot/ankle Integumentary/Posture Integumentary jaja wrap L foot Bowel Incontinence: No Bladder Incontinence: No Neuromuscular (Tone, Coordination, Reflexes) intact Sensory Vision: Functional Hearing: Functional Sensation Right Upper Extremit: Intact Sensation Left Upper Extremity: Intact Sensation Right Lower Extremit: Impaired Sensation Left Lower Extremity: Impaired Transfers Therapy Code Descriptions/Definitions Functional [place] Measure: 0=Not Assessed/NA 4=Minimal Assistance 1=Total Assistance 5=Supervision or Setup 2=Maximal Assistance 6=Modified [place] 3=Moderate Assistance 7=Complete [place] Transfers (B, C, W/C) (FIM): 4 Supine to/from Sit: 5 Sit to/from Stand: 4 Gait Mode of Locomotion: Walk Anticipated Mode of Locomotion: Walk Gait (FIM): 1 Distance (FIM): 1=up to 49 ft Distance: 2 x 25 ft Gait Level of Assist: 4 Gait Persons Needed: 1 Gait Assistive Device: FWW Comments/Gait Description pt. unable to maintain NWB L LE during ambulation with FWW despite several cues from therapist and nurse, patient responds with "the weight is on my heel so it's fine." Pt. given a knee scooter to try to maintain NWB on L and she was able to maneuver correctly with SBA. Balance Sitting Static: Good Sitting Dynamic: Good Standing Static: Good Standing Dynamic: Fair Assessment/Needs Pt. is a 53 y.o. female with decreased mobility following amputation of L great toe. Pt. wasn't able to maintain NWB on L for ambulation using FWW. She did well with using knee scooter and able to maintain WB status, thus this is the preferred device to use at this time for mobility. We will also assess gait ability with crutches, although unlikely to be compliance with full NWB status. Pt. would benefit from skilled PT to improve safe mobility for return home with mother. Rehab Potential: Good PT Alf Goals Review Analyst Goals PT Alf Goals Time Frame: Oct 14, 2018 Transfers (B,C,W/C) (FIM): 6 Gait (FIM): 6 Gait distance (FIM): 3=150 ft Distance: 150 ft Gait Level of Assist: 6 Gait Assistive Device: FWW, Crutches Stairs (FIM): 2 # of Steps: 4 Stairs Level Of Assist: 4 patient may be most safe with use of knee scooter for mobility PT Plan Problem List Problem List: Activity Tolerance, Functional Strength, Safety, Balance, Gait, Transfer, Bed Mobility, ROM Treatment/Plan Treatment Plan: Continue Plan of Care Treatment Plan: Bed Mobility, Education, Functional Activity Edgar, Functional Strength, Gait, Safety, Therapeutic Exercise, Transfers Treatment Duration: Oct 14, 2018 Frequency: 11 times per week Estimated Hrs Per Day: .5 hour per day Patient and/or Family Agrees t: Yes Time/GCodes Time In: 900 Time Out: 917 Total Billed Treatment Time: 17 Total Billed Treatment 1, MARIA G 17' FIONA GARCIA PT Oct 07, 2018 14:06
--- NOTE | 2018-10-07 14:28 | Anesthesia-General Post-Op ---
General Patient Condition Mental Status/LOC: Same as Preop Cardiovascular: Satisfactory Nausea/Vomiting: Absent Respiratory: Satisfactory Pain: Controlled Complications: Absent Post Op Complications Complications None Follow Up Care/Instructions Patient Instructions None needed. Anesthesia/Patient Condition Patient Condition Patient is doing well, no complaints, stable vital signs, no apparent adverse anesthesia problems. No complications reported per nursing. SANTIAGO VELA CRNA Oct 07, 2018 14:28
[2018-10-07 16:03] VITALS: BP 117/90
[2018-10-07] MEDS: LORazepam INJ 2 MG/ML (ATIVAN) VIAL IVP PRN (22:12)
[2018-10-08] VITALS: BP 121/87
[2018-10-08] MEDS: LACTATED RINGERS 1,000 ML IV SCH ×5 (02:25→11:52)
[2018-10-08 05:39] LABS: BASOPHILS % (AUTO) 1 % (0-10); EOSINOPHILS # (AUTO) 0.2 10^3/uL (0.0-0.3); EOSINOPHILS % (AUTO) 2 % (0-10); HEMATOCRIT 41 % (35-52); HEMOGLOBIN 13.2 G/DL (11.5-16.0); LYMPHOCYTES # (AUTO) 2.2 X 10^3 (1.0-4.0); LYMPHOCYTES % (AUTO) 27 % (12-44); MEAN CORPUSCULAR HEMOGLOBIN 28 PG (25-34); MEAN CORPUSCULAR HGB CONC 32 G/DL (32-36); MEAN CORPUSCULAR VOLUME 88 FL (80-99); MONOCYTES # (AUTO) 0.6 X 10^3 (0.0-1.0); MONOCYTES % (AUTO) 7 % (0-12); NEUTROPHILS # (AUTO) 5.1 X 10^3 (1.8-7.8); NEUTROPHILS % (AUTO) 63 % (42-75); PLATELET COUNT 212 10^3/uL (130-400); WHITE BLOOD COUNT 8.1 10^3/uL (4.3-11.0)
[2018-10-08] MEDS: PIPERACILLIN/TAZO 4.5 GM/NS 100 ML IV SCH ×6 (06:00→20:28)
[2018-10-08 06:01] LABS: ALANINE AMINOTRANSFERASE 11 U/L (0-55); ALBUMIN 3.5 GM/DL (3.2-4.5); ALKALINE PHOSPHATASE 51 U/L (40-136); BILIRUBIN,TOTAL 1.2 MG/DL (0.1-1.0); BUN/CREATININE RATIO 6; CALCIUM 9.2 MG/DL (8.5-10.1); CARBON DIOXIDE 19 MMOL/L (21-32); CHLORIDE 109 MMOL/L (98-107); CREATININE SERUM 0.96 MG/DL (0.60-1.30); GFR ESTIMATED > 60; GLUCOSE 126 MG/DL (70-105); POTASSIUM 3.7 MMOL/L (3.6-5.0); SODIUM 141 MMOL/L (135-145); TOTAL PROTEIN 6.2 GM/DL (6.4-8.2)
[2018-10-08 08:00] VITALS: BP 121/87
[2018-10-08] MEDS: SILVASORB GEL 1.5 OZ TP SCH ×2 (09:34→19:29)
[2018-10-08] MEDS: VANCOMYCIN 1,750 MG/NS 500 ML IVPB IV SCH ×4 (09:39→22:18)
--- NOTE | 2018-10-08 09:46 | Physical Therapy Progress Note ---
Therapy Progress Note Pt. in bed, says she has been using the scooter but doesn't like it because it doesn't have good brakes. Pt. also frustrated she can't get up by herself due to the IV. Discussed trying crutches today and patient declines, says "it will just make me more frustrated to get out of here." We discussed to practice using crutches tomorrow and completing stair training before discharge; she agrees. Pt. is encouraged to continue using knee scooter to ensure NWB status of L LE. We will return 10/08. 1, visit only [id number] FIONA GARCIA PT Oct 08, 2018 09:46
--- NOTE | 2018-10-08 11:17 | Progress Note - Hospitalist ---
Subjective HPI/CC On Admission Date Seen by Provider: Oct 08, 2018 Time Seen by Provider: 11:45 Subjective/Events-last exam Labs reviewed We will Hep-Lock IV fluid Smoking cessation discussed Bowels are moving Using incentive spirometer No pain is reported Review of Systems General: Fatigue Objective Exam Vital Signs Vital Signs Date Time Temp Pulse Resp B/P (MAP) Pulse Ox O2 Delivery O2 Flow Rate FiO2 10/08/18 08:00 95.6 88 20 121/87 (98) 95 Room Air 10/06/18 15:50 2 Capillary Refill : Less Than 3 SecondsLess Than 3 Seconds General Appearance: No Apparent Distress, WD/WN HEENT: Normal ENT Inspection Neck: Full Range of Motion, Normal Inspection Respiratory: Lungs Clear, No Accessory Muscle Use, No Respiratory Distress Cardiovascular: Regular Rate, Rhythm, No Murmur Gastrointestinal: Non Tender, Soft Extremity: Other (left foot in ortho shoe) Results/Procedures Lab Laboratory Tests 10/08/18 04:47 Patient resulted labs reviewed. Assessment/Plan Assessment and Plan Assess & Plan/Chief Complaint Assessment: s/p amputation of great toe. Smoker Plan: IV abx Non-weight bearing Diagnosis/Problems Diagnosis/Problems (1) Amputated great toe of left foot Status: Acute (2) Smoker Status: Chronic Clinical Quality Measures DVT/VTE Risk/Contraindication: Risk Factor Score Per Nursin RFS Level Per Nursing on Admit: 4+=Very High Contraindications-Pharm: Other *list below* BRANDY CORTEZ DO Oct 08, 2018 11:17
--- NOTE | 2018-10-08 16:19 | Podiatry Progress Note ---
Standard Progress Note Progress Notes/Assess & Plan Date Seen by a Provider: Oct 08, 2018 Time Seen by a Provider: 16:11 Progress/Assessment & Plan The patient's pain is much improved and she hasn't taken any pain medication today. No indication of F/C/N/V. Dresssing changed today with skin well coapted for the amputation site left hallux. There is no proximal streaking, minimal erythema, no gapping to the incision site. Vital Signs Date Time Temp Pulse Resp B/P (MAP) Pulse Ox O2 Delivery O2 Flow Rate FiO2 10/08/18 08:00 95.6 88 20 121/87 (98) 95 Room Air 10/08/18 08:00 Room Air 10/08/18 00:00 96.6 90 18 121/87 (98) 97 Room Air 10/07/18 20:00 Room Air I & O 10/08/18 07:00 Intake Total 4260 ml Output Total 2700 ml Balance 1560 ml A/P: Post op day #2 - Amputation of left hallux Continue with IV antibiotics and wound care. She is to have heel contact only on the left with walker or crutches, minimal weight bearing left. Keep the dressing dry, clean and intact. They will need an appointment for my office in one week. Awaiting results of bone cultures for direction of oral antibiotics. Final Diagnosis Osteomyelitis left hallux ABEL LAZCANO DPM Oct 08, 2018 16:19
[2018-10-08 16:24] VITALS: BP 119/81
[2018-10-08] MEDS: LORazepam INJ 2 MG/ML (ATIVAN) VIAL IVP PRN (19:45)
[2018-10-08] MEDS: HYDROcodone/APAP 5 MG/325 MG (LORTAB) TAB PO PRN (22:18)
[2018-10-09] VITALS: BP 112/82
[2018-10-09] MEDS: PIPERACILLIN/TAZO 4.5 GM/NS 100 ML IV SCH ×6 (04:32→20:22)
[2018-10-09 08:00] VITALS: BP 124/88
--- NOTE | 2018-10-09 08:03 | Progress Note ---
Subjective Time Seen by a Provider: 08:01 Subjective/Events-last exam Patient feeling good today. Waiting results of bone cultures and sensitivity. Objective Exam Vital Signs Date Time Temp Pulse Resp B/P (MAP) Pulse Ox O2 Delivery O2 Flow Rate FiO2 10/09/18 00:00 97.6 95 20 112/82 (92) 96 Room Air 10/08/18 20:00 Room Air 10/08/18 16:24 97.6 92 20 119/81 (94) 95 Room Air I & O 10/09/18 07:00 Intake Total 4369.5 ml Output Total 2900 ml Balance 1469.5 ml Capillary Refill : Less Than 3 SecondsLess Than 3 Seconds General Appearance: No Apparent Distress, WD/WN HEENT: Normal ENT Inspection Neck: Full Range of Motion, Normal Inspection Respiratory: Lungs Clear, No Accessory Muscle Use, No Respiratory Distress Cardiovascular: Regular Rate, Rhythm, No Murmur Results Lab Microbiology 10/03/18 Blood Culture - Preliminary, Resulted No growth 10/04/18 MRSA Screen - Final, Complete MRSA not isolated 10/06/18 Gram Stain - Final, Resulted 10/06/18 Anaerobic Culture, Resulted Pending 10/06/18 Surgical Culture - Preliminary, Resulted No growth 10/06/18 Fungal Culture 1, Resulted Pending Assessment/Plan Assessment/Plan Assess & Plan/Chief Complaint Osteomyelitis of the left big toe distal. . 10/05/18. Patient had surgery today. Amputation of big toe. Podiatry to do. . Osteomyelitis. Of big toe 10/09/18 Clinical Quality Measures Admission Status Admission Dx Osteomyelitis of left big toe. Abscess left big toe 2 DVT/VTE Risk/Contraindication: Risk Factor Score Per Nursin RFS Level Per Nursing on Admit: 4+=Very High Contraindications-Pharm: Other *list below* SUKI HERNADEZ DO Oct 09, 2018 08:03
--- NOTE | 2018-10-09 08:53 | NUR ---
CALLED DR HERNADEZ BACK ABOUT BX INFO HE WANTED -- THIS RN TALKED TO LAB -- PATHO NOT IN -- IT SHOULD BE BACK TUESDAY OR TUESDAY, PER LAB , SENSITIVITY SHOULD BE BACK TUESDAY PER LAB -- UNABLE TO DO LOG RHYTHM -- NO NEW ORDERS
--- NOTE | 2018-10-09 09:06 | Physical Therapy Daily Note ---
PT Daily Note-Current Subjective Patient sitting EOB pre tx, has pain of 3/10 in left foot, states she will not use her knee scooter or walker and insists on using axillary crutches. A pair was obtained for her to use in the hospital. Patient states she has her own at home. Appearance Patient sitting EOB post tx with nurse call, phone, tray, all needs met. Mental Status Patient Orientation: Normal For Age Transfers Therapy Code Descriptions/Definitions Functional [place] Measure: 0=Not Assessed/NA 4=Minimal Assistance 1=Total Assistance 5=Supervision or Setup 2=Maximal Assistance 6=Modified [place] 3=Moderate Assistance 7=Complete [place] Therapy Quality Codes: 6 Independent with activity with or without an assistive device 5 Patient requires set up or clean up by helper. Patient completes activity by themselves 4 Supervision or touching assist (CGA). [place] provide cues , steadying assi st 3 The helper provides less than half the effort to complete the activity 2 The helper provides more than half the effort to complete the activity 1 Dependent. The helper does all the effort to complete an activity 7 Patient refused to complete or attempt activity 9 The patient did not perform the activity before the current illness or injury 88 Not attempted due to Medical conditions or safety concerns Transfers (B, C, W/C) (FIM): 6 Sit to/from Stand: 6 Bed to/from Chair: 6 Weight Bearing Right Lower Extremity: Right Full Weight Bearing Left Lower Extremity: Left Non Weight Bearing Gait Training Gait (FIM): 6 Distance: 150' Gait Level of Assist: 6 Gait Assistive Device: Crutches Patient has no LOB or unsteadiness,she seems very familiar with using the crutches. Patient does seem to bear too much weight on her left foot, she says the doctor told her she could bear some light weight on it but she seems to be bearing a lot of weight. She is not compliant and she is not willing to change what she is doing. Patient states she is going to ambulate downstairs supposedly to smoke. Treatments ambulation Assessment Current Status: Fair Progress mod I with crutches, PT Fish Cake Maker Goals Alf Goals PT Fish Cake Maker Goals Time Frame: Oct 14, 2018 Transfers (B,C,W/C) (FIM): 6 Gait (FIM): 6 Gait distance (FIM): 3=150 ft Distance: 150 ft Gait Level of Assist: 6 Gait Assistive Device: FWW, Crutches Stairs (FIM): 2 # of Steps: 4 Stairs Level Of Assist: 4 PT Plan Treatment/Plan Treatment Plan: Discontinue PT (patient mod I with crutches) Treatment Plan: Bed Mobility, Education, Functional Activity Edgar, Functional Strength, Gait, Safety, Therapeutic Exercise, Transfers Treatment Duration: Oct 14, 2018 Frequency: 11 times per week Estimated Hrs Per Day: .5 hour per day Patient and/or Family Agrees t: Yes Safety Risks/Education Patient Education: Gait Training, Transfer Techniques, Reviewed Precautions, Correct Positioning, Safety Issues Teaching Recipient: Patient Teaching Methods: Demonstration, Discussion Response to Teaching: Reinforcement Needed Time/GCodes Time In: 0850 Time Out: 0900 Total Billed Treatment Time: 10 Total Billed Treatment 1 visit GT 10' AMBREEN REBOLLAR PT Oct 09, 2018 09:06
[2018-10-09] MEDS: SILVASORB GEL 1.5 OZ TP SCH ×2 (09:18→20:54)
--- NOTE | 2018-10-09 09:28 | NUR ---
Initial visit with pt's mother: Pt's stepfather recently of cancer and the family is still grieving. Strong family support in place. Tire Building Supervisor offered compassionate presence and empathic listening.
[2018-10-09] MEDS: VANCOMYCIN 1,750 MG/NS 500 ML IVPB IV SCH ×4 (10:04→21:06)
[2018-10-09 16:00] VITALS: BP 131/90
[2018-10-09] MEDS: LORazepam INJ 2 MG/ML (ATIVAN) VIAL IVP PRN (20:14)
[2018-10-09] MEDS: HYDROcodone/APAP 5 MG/325 MG (LORTAB) TAB PO PRN (22:09)
[2018-10-10] VITALS: BP 127/88
[2018-10-10] MEDS: PIPERACILLIN/TAZO 4.5 GM/NS 100 ML IV SCH ×2 (04:55)
--- NOTE | 2018-10-10 07:55 | Progress Note ---
Subjective Time Seen by a Provider: 07:52 Subjective/Events-last exam Patient feeling good. patient be discharged today. Bone C and S not done yet. Spoke to Dr. Francis and wants her to be sent home on doxycycline Objective Exam Vital Signs Date Time Temp Pulse Resp B/P (MAP) Pulse Ox O2 Delivery O2 Flow Rate FiO2 10/10/18 00:00 97.8 97 20 127/88 (101) 92 Room Air 10/09/18 20:00 Room Air 10/09/18 16:00 96.6 92 18 131/90 (104) 96 Room Air 10/09/18 08:00 97.7 90 20 124/88 (100) 97 Room Air 10/09/18 08:00 Room Air I & O 10/10/18 07:00 Intake Total 2260 ml Balance 2260 ml Capillary Refill : Less Than 3 SecondsLess Than 3 Seconds General Appearance: No Apparent Distress, WD/WN HEENT: Normal ENT Inspection Neck: Full Range of Motion, Normal Inspection Respiratory: No Accessory Muscle Use, No Respiratory Distress Cardiovascular: No Murmur Gastrointestinal: non tender, soft Results Lab Microbiology 10/03/18 Blood Culture - Final, Complete No growth 10/04/18 MRSA Screen - Final, Complete MRSA not isolated 10/06/18 Gram Stain - Final, Resulted 10/06/18 Anaerobic Culture - Preliminary, Resulted No anaerobes isolated 10/06/18 Surgical Culture - Preliminary, Resulted No growth 10/06/18 Fungal Culture 1 - Preliminary, Resulted Assessment/Plan Assessment/Plan Assess & Plan/Chief Complaint Osteomyelitis of the left big toe distal. . 10/05/18. Patient had surgery today. Amputation of big toe. Podiatry to do. . Osteomyelitis. Of big toe 10/09/18. . 10/10/18. Osteomyelitis of big toe. Amputation. Patient doing well. Patient to be discharged today Clinical Quality Measures Admission Status Admission Dx Osteomyelitis of left big toe. Abscess left big toe 2 DVT/VTE Risk/Contraindication: Risk Factor Score Per Nursin RFS Level Per Nursing on Admit: 4+=Very High Contraindications-Pharm: Other *list below* SUKI HERNADEZ DO Oct 10, 2018 07:55
--- NOTE | 2018-10-10 07:59 | Discharge Inst-Simple/Standard ---
Discharge Inst-Standard Patient Instructions/Follow Up Plan of Care/Instructions/FU: Follow Dr. Francis orders. To see Dr. Francis this . To my office this Tuesday at 11 a.m. Patient to use crutches. Patient walk on heels Activity as Tolerated: Yes Discharge Diet: No Restrictions SUKI HERNADEZ DO Oct 10, 2018 07:59
[2018-10-10 08:00] VITALS: BP 128/80
[2018-10-10] MEDS ORDERED: DOXY100C PO (10:53)
[2018-10-10] MEDS ORDERED: FLUC100T PO (10:53)
[2018-10-10] MEDS: ALPRAZolam 0.25 MG (XANAX) TAB PO PRN (11:18)
[2018-10-10 11:47] VITALS: BP 128/80
--- NOTE | 2018-10-11 07:29 | Discharge Summary ---
Diagnosis/Chief Complaint Date of Admission Oct 03, 2018 at 22:33 Date of Discharge Oct 10, 2018 at 11:50 Discharge Date: Oct 10, 2018 Discharge Time: 07:27 Discharge Diagnosis Cellulitis of left big toe. Cutaneous abscess of left foot. Ingrown toenail. Osteomyelitis. Nicotine dependence. Amputation of toe Reason Hospital Visit Patient came out to emergency room last night. Patient has history of ingrown toenail 6 weeks ago area Patient cardioversion toenail. Patient was on Keflex and doing better. Patient hit her left big toe again and started to hurt got infected Patient has a left big toe abscess and had trouble walking. Patient use better 9 and soaked in Epsom salt. X-ray of big toe shows osteomyelitis. 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 Have to amputation of toe culture negative Labs (last 24 hrs) Laboratory Tests 10/03/18 23:08: White Blood Count 11.3H, Red Blood Count 4.77, Hemoglobin 13.9, Hematocrit 42, Mean Corpuscular Volume 88, Mean Corpuscular Hemoglobin 29, Mean Corpuscular Hemoglobin Concent 33, Red Cell Distribution Width 16.9H, Platelet Count 259, Mean Platelet Volume 10.7H, Neutrophils (%) (Auto) 63, Lymphocytes (%) (Auto) 30, Monocytes (%) (Auto) 6, Eosinophils (%) (Auto) 1, Basophils (%) (Auto) 0, Neutrophils # (Auto) 7.1, Lymphocytes # (Auto) 3.4, Monocytes # (Auto) 0.6, Eos inophils # (Auto) 0.1, Basophils # (Auto) 0.1, Prothrombin Time 15.5H, INR Comm ent 1.2, Sodium Level 139, Potassium Level 3.7, Chloride Level 105, Carbon Dioxide Level 20L, Anion Gap 14, Blood Urea Nitrogen 13, Creatinine 0.86, Estimat Glomerular Filtration Rate > 60, BUN/Creatinine Ratio 15, Glucose Level 141H, Lactic Acid Level 1.70, Calcium Level 9.8, Corrected Calcium 9.7, Total Bilirubin 1.1H, Aspartate Amino Transf (AST/SGOT) 17, Alanine Aminotransferase (ALT/SGPT) 13, Alkaline Phosphatase 64, Total Protein 7.0, Albumin 4.1 10/04/18 05:12: White Blood Count 8.5, Red Blood Count 4.40, Hemoglobin 12.9, Hematocrit 39, Mean Corpuscular Volume 88, Mean Corpuscular Hemoglobin 29, Mean Corpuscular Hemoglobin Concent 33, Red Cell Distribution Width 16.7H, Platelet Count 214, Mean Platelet Volume 10.8H, Neutrophils (%) (Auto) 63, Lymphocytes (%) (Auto) 31, Monocytes (%) (Auto) 5, Eosinophils (%) (Auto) 1, Basophils (%) (Auto) 0, Neutrophils # (Auto) 5.3, Lymphocytes # (Auto) 2.6, Monocytes # (Auto) 0.5, Eosinophils # (Auto) 0.1, Basophils # (Auto) 0.0, Sodium Level 139, Potassium Level 3.6, Chloride Level 108H, Carbon Dioxide Level 20L, Anion Gap 11, Blood Urea Nitrogen 13, Creatinine 0.75, Estimat Glomerular Filtration Rate > 60, BUN/Creatinine Ratio 17, Glucose Level 130H, Calcium Level 9.4, Corrected Calcium 9.7, Total Bilirubin 1.2H, Aspartate Amino Transf (AST/SGOT) 14, Alanine Aminotransferase (ALT/SGPT) 11, Alkaline Phosphatase 54, Total Protein 6.2L, Albumin 3.6 10/05/18 06:35: White Blood Count 6.8, Red Blood Count 4.43, Hemoglobin 12.9, Hematocrit 39, Mean Corpuscular Volume 88, Mean Corpuscular Hemoglobin 29, Mean Corpuscular Hemoglobin Concent 33, Red Cell Distribution Width 16.9H, Platelet Count 214, Mean Platelet Volume 10.8H, Neutrophils (%) (Auto) 57, Lymphocytes (%) (Auto) 36, Monocytes (%) (Auto) 5, Eosinophils (%) (Auto) 2, Basophils (%) (Auto) 1, Neutrophils # (Auto) 3.9, Lymphocytes # (Auto) 2.4, Monocytes # (Auto) 0.3, Eosinophils # (Auto) 0.1, Basophils # (Auto) 0.0 10/05/18 09:10: Vancomycin Level Trough 18.0 10/08/18 04:47: White Blood Count 8.1, Red Blood Count 4.66, Hemoglobin 13.2, Hematocrit 41, Mean Corpuscular Volume 88, Mean Corpuscular Hemoglobin 28, Mean Corpuscular Hemoglobin Concent 32, Red Cell Distribution Width 17.0H, Platelet Count 212, Mean Platelet Volume 11.0H, Neutrophils (%) (Auto) 63, Lymphocytes (%) (Auto) 27, Monocytes (%) (Auto) 7, Eosinophils (%) (Auto) 2, Basophils (%) (Auto) 1, Neutrophils # (Auto) 5.1, Lymphocytes # (Auto) 2.2, Monocytes # (Auto) 0.6, Eosinophils # (Auto) 0.2, Basophils # (Auto) 0.0, Sodium Level 141, Potassium Level 3.7, Chloride Level 109H, Carbon Dioxide Level 19L, Anion Gap 13, Blood Urea Nitrogen 6L, Creatinine 0.96, Estimat Glomerular Filtration Rate > 60, BUN/Creatinine Ratio 6, Glucose Level 126H, Calcium Level 9.2, Corrected Calcium 9.6, Total Bilirubin 1.2H, Aspartate Amino Transf (AST/SGOT) 9, Alanine Aminotransferase (ALT/SGPT) 11, Alkaline Phosphatase 51, Total Protein 6.2L, Albumin 3.5 Microbiology 10/03/18 Blood Culture - Final, Complete No growth 10/04/18 MRSA Screen - Final, Complete MRSA not isolated 10/06/18 Gram Stain - Final, Resulted 10/06/18 Anaerobic Culture - Final, Resulted No anaerobes isolated 10/06/18 Surgical Culture - Final, Resulted No growth 10/06/18 Fungal Culture 1 - Preliminary, Resulted Laboratory Tests 10/03/18 23:08 10/04/18 05:12 10/05/18 06:35 10/08/18 04:47 Pending Labs Microbiology Date/Time Source Procedure Growth Status 10/03/18 23:17 Peripheral Rt Ac Blood Culture - Final No growth Complete 10/03/18 23:08 Peripheral Lt Ac Blood Culture - Final No growth Complete 10/04/18 16:37 Nasal MRSA Screen - Final MRSA not isolated Complete 10/06/18 15:19 Body Site, Not Otherwise Spec. Toe Gram Stain - Final Resulted 10/06/18 15:19 Body Site, Not Otherwise Spec. Toe Anaerobic Culture - Final No anaerobes isolated Resulted 10/06/18 15:19 Body Site, Not Otherwise Spec. Toe Surgical Culture - Final No growth Resulted 10/06/18 15:19 Body Site, Not Otherwise Spec. Toe Fungal Culture 1 - Preliminary Resulted 10/06/18 15:15 Bone Toe Gram Stain - Final Resulted 10/06/18 15:15 Bone Toe Anaerobic Culture - Preliminary No anaerobes isolated Resulted 10/06/18 15:15 Surgical Culture - Final Corynebacterium striatum Staphylococcus epidermidis Resulted 10/06/18 15:15 Fungal Culture 1 - Preliminary Keyanna glabrata Resulted 10/03/18 20:56 Cyst/Abscess Toe Gram Stain - Final Complete 10/03/18 20:56 Wound Culture - Final Gram Pos Mixed Bacterial Raissa Complete Laboratory Tests 10/03/18 23:08: White Blood Count 11.3, Red Blood Count 4.77, Hemoglobin 13.9, Hematocrit 42, Mean Corpuscular Volume 88, Mean Corpuscular Hemoglobin 29, Mean Corpuscular Hemoglobin Concent 33, Red Cell Distribution Width 16.9, Platelet Count 259, Mean Platelet Volume 10.7, Neutrophils (%) (Auto) 63, Lymphocytes (%) (Auto) 30, Monocytes (%) (Auto) 6, Eosinophils (%) (Auto) 1, Basophils (%) (Auto) 0, Neutrophils # (Auto) 7.1, Lymphocytes # (Auto) 3.4, Monocytes # (Auto) 0.6, Eosinophils # (Auto) 0.1, Basophils # (Auto) 0.1, Prothrombin Time 15.5, INR Comment 1.2, Sodium Level 139, Potassium Level 3.7, Chloride Level 105, Carbon Dioxide Level 20, Anion Gap 14, Blood Urea Nitrogen 13, Creatinine 0.86, Estimat Glomerular Filtration Rate > 60, BUN/Creatinine Ratio 15, Glucose Level 141, Lactic Acid Level 1.70, Calcium Level 9.8, Corrected Calcium 9.7, Total Bilirubin 1.1, Aspartate Amino Transf (AST/SGOT) 17, Alanine Aminotransferase (ALT/SGPT) 13, Alkaline Phosphatase 64, Total Protein 7.0, Albumin 4.1 10/04/18 05:12: White Blood Count 8.5, Red Blood Count 4.40, Hemoglobin 12.9, Hematocrit 39, Mean Corpuscular Volume 88, Mean Corpuscular Hemoglobin 29, Mean Corpuscular Hemoglobin Concent 33, Red Cell Distribution Width 16.7, Platelet Count 214, Mean Platelet Volume 10.8, Neutrophils (%) (Auto) 63, Lymphocytes (%) (Auto) 31, Monocytes (%) (Auto) 5, Eosinophils (%) (Auto) 1, Basophils (%) (Auto) 0, Neutrophils # (Auto) 5.3, Lymphocytes # (Auto) 2.6, Monocytes # (Auto) 0.5, Eosinophils # (Auto) 0.1, Basophils # (Auto) 0.0, Sodium Level 139, Potassium Level 3.6, Chloride Level 108, Carbon Dioxide Level 20, Anion Gap 11, Blood Urea Nitrogen 13, Creatinine 0.75, Estimat Glomerular Filtration Rate > 60, BUN/Creatinine Ratio 17, Glucose Level 130, Calcium Level 9.4, Corrected Calcium 9.7, Total Bilirubin 1.2, Aspartate Amino Transf (AST/SGOT) 14, Alanine Aminotransferase (ALT/SGPT) 11, Alkaline Phosphatase 54, Total Protein 6.2, Albumin 3.6 10/05/18 06:35: White Blood Count 6.8, Red Blood Count 4.43, Hemoglobin 12.9, Hematocrit 39, Mean Corpuscular Volume 88, Mean Corpuscular Hemoglobin 29, Mean Corpuscular Hemoglobin Concent 33, Red Cell Distribution Width 16.9, Platelet Count 214, Mean Platelet Volume 10.8, Neutrophils (%) (Auto) 57, Lymphocytes (%) (Auto) 36, Monocytes (%) (Auto) 5, Eosinophils (%) (Auto) 2, Basophils (%) (Auto) 1, Neutrophils # (Auto) 3.9, Lymphocytes # (Auto) 2.4, Monocytes # (Auto) 0.3, Eosinophils # (Auto) 0.1, Basophils # (Auto) 0.0 10/05/18 09:10: Vancomycin Level Trough 18.0 10/08/18 04:47: White Blood Count 8.1, Red Blood Count 4.66, Hemoglobin 13.2, Hematocrit 41, Mean Corpuscular Volume 88, Mean Corpuscular Hemoglobin 28, Mean Corpuscular Hemoglobin Concent 32, Red Cell Distribution Width 17.0, Platelet Count 212, Mean Platelet Volume 11.0, Neutrophils (%) (Auto) 63, Lymphocytes (%) (Auto) 27, Monocytes (%) (Auto) 7, Eosinophils (%) (Auto) 2, Basophils (%) (Auto) 1, Neutrophils # (Auto) 5.1, Lymphocytes # (Auto) 2.2, Monocytes # (Auto) 0.6, Eosinophils # (Auto) 0.2, Basophils # (Auto) 0.0, Sodium Level 141, Potassium Level 3.7, Chloride Level 109, Carbon Dioxide Level 19, Anion Gap 13, Blood Urea Nitrogen 6, Creatinine 0.96, Estimat Glomerular Filtration Rate > 60, BUN/Creatinine Ratio 6, Glucose Level 126, Calcium Level 9.2, Corrected Calcium 9.6, Total Bilirubin 1.2, Aspartate Amino Transf (AST/SGOT) 9, Alanine Aminotransferase (ALT/SGPT) 11, Alkaline Phosphatase 51, Total Protein 6.2, Albumin 3.5 Discussion & Recommendations Follow-up with surgeon next . To follow-up in my office next week Discharge Home Medications: Active Scripts Active Vibramycin (Doxycycline Hyclate) 100 Mg Capsule 100 Mg PO BID 15 Days Diflucan (Fluconazole) 100 Mg Tablet 100 Mg PO DAILY 7 Days Reported Advil (Ibuprofen) 200 Mg Tablet 800 Mg PO Q8H PRN Instructions to patient/family Please see electronic discharge instructions given to patient. Clinical Quality Measures DVT/VTE Risk/Contraindication: Risk Factor Score Per Nursin RFS Level Per Nursing on Admit: 4+=Very High Contraindications-Pharm: Other *list below* SUKI HERNADEZ DO Oct 11, 2018 07:29
== END 2018-10-10 11:50 | disposition home or self-care (01) | DRG 501 ==
LOC: EDUNIT# 20:41 → ER 20:43 → 4TH 22:33
PROVIDERS: ADMIT Family Medicine; ATTEND Family Medicine
PROC: 0J9R0ZZ Drainage of Left Foot Subcutaneous Tissue and Fascia, Open Approach (ICD-10-PCS; principal; 2018-10-03)
PROC: 0HTRXZZ Resection of Toe Nail, External Approach (ICD-10-PCS; 2018-10-03)
PROC: 0Y6Q0Z0 Detachment at Left 1st Toe, Complete, Open Approach (ICD-10-PCS; 2018-10-06)
DX: M86.9 Osteomyelitis, unspecified (principal); L02.612 Cutaneous abscess of left foot; L03.032 Cellulitis of left toe; L60.0 Ingrowing nail; F17.200 Nicotine dependence, unspecified, uncomplicated
CPT/HCPCS: 36415; 73620; 73630; 80053; 80202; 83605; 85025; 85610; 87040; 87070; 87075; 87077; 87081; 87101; 87106; 87186; 87205; 96365

== ENCOUNTER 2019-04-04 00:06 | Inpatient (IN) | payer OTHER ==
[2019-04-04] VITALS (25 sets, daily range): BP systolic 76–129; BP diastolic 26–100
[~2019-04-04] VITALS: Ht 185 cm; Wt 116.0 kg
[~2019-04-04 00:06] MED LIST: CEPH500C PO; DOXY100C PO; FLUC100T PO; HYDR-4226 PO; IBUP-30 PO; SULF1TAB35 PO
[2019-04-04] MEDS ORDERED: QUET100T69 PO (00:13)
[2019-04-04 00:26] LABS: BASOPHILS % (AUTO) 0 % (0-10); EOSINOPHILS # (AUTO) 0.1 10^3/uL (0.0-0.3); EOSINOPHILS % (AUTO) 0 % (0-10); HEMATOCRIT 44 % (35-52); HEMOGLOBIN 14.5 G/DL (11.5-16.0); LYMPHOCYTES # (AUTO) 1.2 X 10^3 (1.0-4.0); LYMPHOCYTES % (AUTO) 10 % (12-44); MEAN CORPUSCULAR HEMOGLOBIN 28 PG (25-34); MEAN CORPUSCULAR HGB CONC 33 G/DL (32-36); MEAN CORPUSCULAR VOLUME 85 FL (80-99); MEAN PLATELET VOLUME 10.7 FL (7.4-10.4); MONOCYTES # (AUTO) 0.9 X 10^3 (0.0-1.0); MONOCYTES % (AUTO) 8 % (0-12); NEUTROPHILS % (AUTO) 82 % (42-75); PLATELET COUNT 290 10^3/uL (130-400); RED CELL DISTRIBUTION WIDTH 17.8 % (10.0-14.5); WHITE BLOOD COUNT 12.2 10^3/uL (4.3-11.0)
[2019-04-04 00:45] LABS: MAGNESIUM 1.8 MG/DL (1.6-2.4)
[2019-04-04 00:46] LABS: ALBUMIN 3.8 GM/DL (3.2-4.5); CALCIUM 9.5 MG/DL (8.5-10.1); CREATININE SERUM 1.07 MG/DL (0.60-1.30); POTASSIUM 3.6 MMOL/L (3.6-5.0); TOTAL PROTEIN 7.5 GM/DL (6.4-8.2)
[2019-04-04 00:57] LABS: FIBRIN DEGRADATION PRODUCTS 1.13 UG/ML (0.00-0.49); INR 1.4 (0.8-1.4); PROTHROMBIN TIME PATIENT 17.2 SEC (12.2-14.7)
[2019-04-04] MEDS ORDERED: ASPIRIN 81 MG CHEW (CHILDREN'S ASA) PO ONE (01:00)
[2019-04-04] MEDS ORDERED: FUROSEMIDE 40 MG/4 ML INJ (LASIX) IVP ONE (01:15)
[2019-04-04] MEDS ORDERED: ENOXAPARIN 100 MG/1 ML (LOVENOX) SYR SC ONE (01:30)
[2019-04-04] MEDS ORDERED: PIPERACILLIN SODIUM/TAZOBACTAM 4.5 GM in NS (IVPB) 100 ML IV ONE (01:45)
--- NOTE | 2019-04-04 01:59 | ED Chest Pain ---
General Chief Complaint: Respiratory Problems Stated Complaint: SOA Nursing Triage Note: cough x4 week, worse x4 days. c/o coughing up sloodd tinged sputom/rib pain with coughing. Nursing Sepsis Screen: No Definite Risk Source: patient Exam Limitations: no limitations History of Present Illness Date Seen by Provider: Apr 04, 2019 Time Seen by Provider: 00:09 Initial Comments This 54-year-old woman presents to the emergency room with complaints of worsening lower extremity edema for about 2 months. She has had chest pain, dyspnea, and hemoptysis since mid February. Symptoms have escalated over the past few days. She comes in in respiratory distress with significant dyspnea and tachypnea. Oxygen saturations are in the upper 90s on room air. Patient denies any cardiac or pulmonary history. She is notably tachycardic on arrival. Dr. Hernadez is her primary care provider. Patient states that Dr. Hernadez has had her taking Lasix 80 mg twice a week to help manage her edema. Allergies and Home Medications Allergies Coded Allergies: cephalexin (Verified Allergy, Mild, 10/04/18) ciprofloxacin (Verified Allergy, Mild, 10/04/18) nitrofurantoin (Verified Allergy, Mild, 10/04/18) Uncoded Allergies: TAPE (Allergy, Intermediate, 10/04/18) BACTRIUM (Allergy, Mild, 10/04/18) CODIENE (Allergy, Mild, 10/04/18) Patient Home Medication List Home Medication List Reviewed: Yes Review of Systems Review of Systems Constitutional: no symptoms reported EENTM: No Symptoms Reported Respiratory: See HPI Cardiovascular: See HPI Gastrointestinal: No Symptoms Reported Genitourinary: No Symptoms Reported Musculoskeletal: no symptoms reported Skin: no symptoms reported Psychiatric/Neurological: No Symptoms Reported Endocrine: No Symptoms Reported Hematologic/Lymphatic: No Symptoms Reported Past Lprepts-Iwvmzj-[place] Hx Past Med/Social Hx: Reviewed Nursing Past Med/Soc Hx Patient Social History Alcohol Use: Rarely Uses Number of Drinks Today: AA Alcohol Beverage of Choice: Beer Recreational Drug Use: No Smoking Status: Current Everyday Smoker Type Used: Cigarettes 2nd Hand Smoke Exposure: Yes Recent Foreign Travel: No Contact w/Someone Who Travel: No Recent Infectious Disease Expo: No Recent Hopitalizations: No Physical Abuse: No Sexual Abuse: No Mistreated: No Fear: No Immunizations Up To Date Tetanus Booster (TDap): Unknown PED Vaccines UTD: Yes Seasonal Allergies Seasonal Allergies: No Past Medical History Surgeries: Yes (L KNEE) Amputation (toe), Section, Orthopedic Respiratory: No Cardiac: No Neurological: No : 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 oz. 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 Norm as Tested Skin: Normal Color, Warm/Dry Focused Exam Sepsis Stage: Severe Sepsis Possible Source: Pulmonary Lactate Level 04/04/19 00:17: Lactic Acid Level 2.62*H Time of Focused Exam: 04:00 Respiratory: Lungs Clear, Decreased Breath Sounds (in right base) Cardiovascular: Regular Rate, Rhythm, No Murmur, Normal Peripheral Pulses Capillary Refill: Less Than 3 Seconds Skin: normal color, warm/dry Lactic Acid Level Laboratory Tests Test 04/04/19 00:17 Lactic Acid Level 2.62 MMOL/L (0.50-2.00) *H Within 3hrs of presentation: Blood cultures prior to ABX's, Focus exam, Lactate level Progress/Results/Core Measures Results/Orders Lab Results Laboratory Tests Test 04/04/19 00:17 Range/Units White Blood Count 12.2 H 4.3-11.0 10^3/uL Red Blood Count 5.20 4.35-5.85 10^6/uL Hemoglobin 14.5 11.5-16.0 G/DL Hematocrit 44 35-52 % Mean Corpuscular Volume 85 80-99 FL Mean Corpuscular Hemoglobin 28 25-34 PG Mean Corpuscular Hemoglobin Concent 33 32-36 G/DL Red Cell Distribution Width 17.8 H 10.0-14.5 % Platelet Count 290 130-400 10^3/uL Mean Platelet Volume 10.7 H 7.4-10.4 FL Neutrophils (%) (Auto) 82 H 42-75 % Lymphocytes (%) (Auto) 10 L 12-44 % Monocytes (%) (Auto) 8 0-12 % Eosinophils (%) (Auto) 0 0-10 % Basophils (%) (Auto) 0 0-10 % Neutrophils # (Auto) 10.0 H 1.8-7.8 X 10^3 Lymphocytes # (Auto) 1.2 1.0-4.0 X 10^3 Monocytes # (Auto) 0.9 0.0-1.0 X 10^3 Eosinophils # (Auto) 0.1 0.0-0.3 10^3/uL Basophils # (Auto) 0.0 0.0-0.1 10^3/uL Prothrombin Time 17.2 H 12.2-14.7 SEC INR Comment 1.4 0.8-1.4 Activated Partial Thromboplast Time 35 24-35 SEC D-Dimer 1.13 H 0.00-0.49 UG/ML Sodium Level 134 L 135-145 MMOL/L Potassium Level 3.6 3.6-5.0 MMOL/L Chloride Level 97 L 98-107 MMOL/L Carbon Dioxide Level 21 21-32 MMOL/L Anion Gap 16 H 5-14 MMOL/L Blood Urea Nitrogen 17 7-18 MG/DL Creatinine 1.07 0.60-1.30 MG/DL Estimat Glomerular Filtration Rate 54 BUN/Creatinine Ratio 16 Glucose Level 157 H 70-105 MG/DL Lactic Acid Level 2.62 *H 0.50-2.00 MMOL/L Calcium Level 9.5 8.5-10.1 MG/DL Corrected Calcium 9.7 8.5-10.1 MG/DL Magnesium Level 1.8 1.6-2.4 MG/DL Total Bilirubin 2.0 H 0.1-1.0 MG/DL Aspartate Amino Transf (AST/SGOT) 9 5-34 U/L Alanine Aminotransferase (ALT/SGPT) 8 0-55 U/L Alkaline Phosphatase 97 40-136 U/L Myoglobin 76.1 10.0-92.0 NG/ML Troponin I 0.080 H <0.028 NG/ML C-Reactive Protein High Sensitivity 18.93 H 0.00-0.50 MG/DL B-Type Natriuretic Peptide 1748.4 H <100.0 PG/ML Total Protein 7.5 6.4-8.2 GM/DL Albumin 3.8 3.2-4.5 GM/DL My Orders Orders - TAMMY BOWMAN MD Cbc With Automated Diff (04/04/19 00:15) Comprehensive Metabolic Panel (04/04/19 00:15) Blood Culture (04/04/19 00:15) Sputum Culture (04/04/19 00:15) Urinalysis (04/04/19 00:15) Urine Culture (04/04/19 00:15) Protime With Inr (04/04/19 00:15) Partial Thromboplastin Time (04/04/19 00:15) Chest 1 View, Ap/Pa Only (04/04/19 00:15) Ed Iv/Invasive Line Start (04/04/19 00:15) Ed Iv/Invasive Line Start (04/04/19 00:15) Vital Signs Adult Sepsis Patie Q15M (04/04/19 00:15) O2 (04/04/19 00:15) Remove Rings In Anticipation O (04/04/19 00:15) Lactic Acid Analyzer (04/04/19 00:15) BNP (04/04/19 00:15) Hs C Reactive Protein (04/04/19 00:15) Fibrin Degradation Products (04/04/19 00:15) Troponin I (04/04/19 00:15) Ekg Tracing (04/04/19 00:15) O2 (04/04/19 00:15) Monitor-Rhythm Ecg Trace Only (04/04/19 00:15) Magnesium (04/04/19 00:15) Myoglobin Serum (04/04/19 00:15) Lipid Panel (04/05/19 06:00) Aspirin Chewable Tablet (Baby Aspirin Ch (04/04/19 01:00) Ct Angio Chest W (04/04/19 01:03) Furosemide Injection (Lasix Injection) (04/04/19 01:15) Enoxaparin Injection (Lovenox Injection) (04/04/19 01:30) Piperacillin Sodium/Tazobactam (Zosyn Vi (04/04/19 01:45) Medications Given in ED Current Medications Medications Dose Ordered Sig/Alida Route Start Time Stop Time Status Last Admin Dose Admin Aspirin 324 mg ONCE ONCE PO 04/04/19 01:00 04/04/19 01:01 DC 04/04/19 01:12 324 MG Enoxaparin Sodium 100 mg ONCE ONCE SC 04/04/19 01:30 04/04/19 01:31 DC 04/04/19 01:45 100 MG Furosemide 40 mg ONCE ONCE IVP 04/04/19 01:15 04/04/19 01:16 DC 04/04/19 01:44 40 MG Piperacillin Sod/ Tazobactam Sod 4.5 gm/Sodium Chloride 100 ml @ 200 mls/hr ONCE ONCE IV 04/04/19 01:45 04/04/19 02:14 DC 04/04/19 01:54 200 MLS/HR Vital Signs/I&O 04/04/19 04/04/19 04/04/19 00:06 00:08 00:50 Temp 36.5 36.8 Pulse 123 94 Resp 26 22 B/P (MAP) 118/96 (103) 104/85 Pulse Ox 99 O2 Delivery Room Air Nasal Cannula Nasal Cannula O2 Flow Rate 2.00 2.00 Blood Pressure Mean: 91 Progress Progress Note #1: Time: 01:15 Progress Note Patient was found to have elevated troponin and BNP as well as an abnormal EKG. Case was discussed with Dr. Vanegas. He requested nothing by mouth status in preparation for possible procedure this morning. He also requested Lovenox be administered. We discussed fluid status. We are going to attempt gentle diuresis with Lasix 40 mg IV 1. Patient's hemodynamic status presents a problem as she appears to be both septic and in heart failure. We will need to manage fluids very carefully, especially since she is adamant about a DO NOT RESUSCITATE status. Because she declines intubation, we will not be able to manage pulmonary edema with positive pressure ventilation via intubation. She does consent to BiPAP. Progress Note #2: Time: 04:30 Progress Note Patient was felt to be septic as her CRP will was also elevated. Nicolas was ord ered for initial empiric antibiotic treatment. Source of infection is likely the right chest cavity where she likely has empyema or pneumonia. There seems to be a large pleural effusion in this area as well. D-dimer was elevated and CT angiogram was obtained. No pulmonary embolus was identified. There is a right lower chest anteriorly pneumothorax. There is compressive atelectasis as well. Case was discussed with Dr. Rodriguez who felt this might represent empyema and may benefit from a chest tube. Case was discussed with Dr. Hernadez and Dr. Horner. I also briefed the eICU on patient's status and the need to telemetry currently manage fluids. Patient received fentanyl for management of pain. She had a couple of hypotensive measurements after that. The drop in blood pressure was felt to be related to administration of fentanyl. IV fluids were ordered but were ultimately not administered as the blood pressure did rebound without receiving additional fluids. I revisited the CODE STATUS preferences with the patient. She is still adamant to remain a DO NOT RESUSCITATE. Initial ECG Impression Date: Apr 04, 2019 Initial ECG Impression Time: 00:24 Initial ECG Rate: 117 Initial ECG Rhythm: S.Tach Comment Sinus tachycardia with wide QRS complexes and left bundle branch block. No prior for comparison. Diagnostic Imaging Diagonstic Imaging: Xray Plain Films/CT/US/NM/MRI: chest Comments Chest x-ray viewed by me. Report not yet available. Large pleural effusion on the right. Diagonstic Imaging: CT Plain Films/CT/US/NM/MRI: chest Comments CT angiogram of the chest revealed a large pleural effusion on the right with compressive atelectasis. Empyema not completely ruled out. There was no evidence of pulmonary embolus. Pulmonary edema and fluid overload was suspected. There is a right lower chest anterior pneumothorax representing less than 15 percent of the right chest cavity volume. Departure Communication (Admissions) Time/Spoke to Admitting Phy: 03:55 Kathya Vanegas at 01:10 Dr. Horner at 03:55 Dr. Rodriguez at 04:30 Impression Primary Impression: Acute heart failure Qualified Codes: I50.9 - Heart failure, unspecified Additional Impressions: Severe sepsis Pleural effusion, right Elevated troponin Chest pain Qualified Codes: R07.9 - Chest pain, unspecified Pneumothorax, right Disposition: ADMITTED INPATIENT Condition: Stable Admissions Decision to Admit Reason: Admit from ER (General) Decision to Admit/Date: Apr 04, 2019 Time/Decision to Admit Time: 00:15 Departure-Patient Inst. Referrals: SUKI HERNADEZ DO (PCP/Family) Primary Care Physician TAMMY BOWMAN MD Apr 04, 2019 01:59
[2019-04-04] MEDS ORDERED: NS 100 ML (IVPB) BAG IV ONE (02:00)
[2019-04-04] MEDS ORDERED: IOHEXOL 350 MG/ML 100 ML (OMNIPAQUE 350) VIAL IV ONE (02:00)
[2019-04-04 03:03] LABS: BILIRUBIN,URINE NEGATIVE (NEGATIVE); CLARITY,URINE CLEAR; COLOR,URINE YELLOW; GLUCOSE, URINE (UA) NEGATIVE (NEGATIVE); KETONES,URINE NEGATIVE (NEGATIVE); LEUKOCYTE ESTERASE ,URINE NEGATIVE (NEGATIVE); NITRITE,URINE NEGATIVE (NEGATIVE); PROTEIN,URINE NEGATIVE (NEGATIVE)
[2019-04-04 03:15] LABS: BACTERIA,URINE NEGATIVE /HPF
[2019-04-04] MEDS ORDERED: fentaNYL INJECTION 100 MCG/2 ML AMP IVP ONE (03:45)
[2019-04-04] MEDS ORDERED: NS IV 1000 ML 1,000 ML IV ONE (03:48)
[2019-04-04] MEDS ORDERED: EPINEPHrine 1 MG INJECTION 2 MG in NS (IVPB) 250 ML IV SCH (04:45)
[2019-04-04] MEDS ORDERED: ONDANSETRON 4 MG/2 ML (SDV) Z0FRAN IV PRN (04:45)
[2019-04-04] MEDS ORDERED: fentaNYL INJECTION 100 MCG/2 ML AMP IV PRN (04:45)
[2019-04-04] MEDS: NOREPINEPHRINE 4 MG/250 ML NS 250 ML IV SCH ×3 (05:36→16:19)
[2019-04-04] MEDS: VASOPRESSIN INJECTION 20 UNIT in NORMAL SALINE 100 ML IV SCH ×3 (05:36→21:21)
--- NOTE | 2019-04-04 05:39 | Pulmonary Consultation ---
History of Present Illness History of Present Illness Date Seen by Provider: Apr 04, 2019 Time Seen by Provider: 05:34 Date of Admission History of Present Illness 54yo presented to ED secondary to worsening SOB, lower extremity edema, CP, and hemoptysis. Symptoms started 2 months ago and have became much worse over the last few days. Upon ED admission pt was found to have respiratory distress and tachycardia. Pt denies previous heart or pulmonary history. Pt does take Lasix 80mg BID at home. Allergies and Home Medications Allergies Coded Allergies: cephalexin (Verified Allergy, Mild, 10/04/18) ciprofloxacin (Verified Allergy, Mild, 10/04/18) nitrofurantoin (Verified Allergy, Mild, 10/04/18) codeine (Unverified Allergy, Unknown, 04/04/19) sulfamethoxazole (Unverified Allergy, Unknown, 04/04/19) trimethoprim (Unverified Allergy, Unknown, 04/04/19) Uncoded Allergies: TAPE (Allergy, Intermediate, 10/04/18) Home Medications Quetiapine Fumarate 100 Mg Tablet, 100 MG PO HS, (Reported) Past Xosyncp-Fozszs-Ugzhae Hx Past Med/Social Hx: Reviewed Nursing Past Med/Soc Hx Patient Social History Alcohol Use: Rarely Uses Number of Drinks Today: AA Alcohol Beverage of Choice: Beer Recreational Drug Use: No Smoking Status: Current Everyday Smoker Type Used: Cigarettes 2nd Hand Smoke Exposure: Yes Recent Foreign Travel: No Contact w/Someone Who Travel: No Recent Infectious Disease Expo: No Recent Hopitalizations: No Physical Abuse: No Sexual Abuse: No Mistreated: No Fear: No Immunizations Up To Date Tetanus Booster (TDap): Unknown PED Vaccines UTD: Yes Date of Influenza Vaccine: Feb 02, 2019 Seasonal Allergies Seasonal Allergies: No Past Medical History Surgeries: Yes (L KNEE) Amputation (toe), Section, Orthopedic Respiratory: No Cardiac: No Neurological: No : 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 Genitourinary: No Gastrointestinal: No Musculoskeletal: Yes Arthritis Endocrine: No HEENT: No Cancer: No Psychosocial: No Integumentary: No Blood Disorders: No Adverse Reaction/Blood Tranf: No Family Medical History Cardiovascular disease 19 FATHER, , Age:53 19 MOTHER FH: CABG (coronary artery bypass surgery) 19 FATHER, , Age:53 19 MOTHER FH: carotid endarterectomy 19 MOTHER, Onset:60 years & older Review of Systems Time Seen by Provider: 07:37 Constitutional: Sweats, Weakness, Malaise, Other Eyes: No: Pain, Vision change, Conjunctivae inflammation, Eyelid inflammation, Other, Redness ENT: No: Ear pain, Ear discharge, Nose pain, Nose discharge, Nose congestion, Mouth pain, Mouth swelling, Throat pain, Throat swelling, Other Respiratory: Cough, Shortness of breath, SOB with excertion, Hemoptysis, Sputum Cardiovascular: Palpitations, Orthopnea, Paroxysmal Noc. Dyspnea, Edema, Lt Headedness; No: Chest Pain Gastrointestinal: No: Nausea, Vomiting, Abdominal Pain, Diarrhea, Constipation, Melena, Hematochezia, Other Genitourinary: No Dysuria, No Frequency, No Incontinence, No Hematuria, No Retention, No Other Neurological: Weakness, Confusion Sepsis Event Evaluation Height, Weight, BMI Height: 6'1.00" Weight: 230lbs. oz. 104.253264hx; 32.28 BMI Method:Stated Exam Exam Vital Signs Date Time Temp Pulse Resp B/P (MAP) Pulse Ox O2 Delivery O2 Flow Rate FiO2 04/04/19 04:26 36.0 101 22 90/77 (81) 96 Room Air 04/04/19 04:24 Room Air 96 04/04/19 04:19 36.5 101 18 97/73 (91) 99 Nasal Cannula 2.00 04/04/19 00:50 36.8 94 22 104/85 Nasal Cannula 2.00 04/04/19 00:08 99 Nasal Cannula 2.00 04/04/19 00:06 36.5 123 26 118/96 (103) Room Air I & O 04/04/19 07:00 Intake Total 100 ml Balance 100 ml Height & Weight Height: 6'1.00" Weight: 230lbs. oz. 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 Horner consulted for Decortication -Hold Lovenox for now secondary to possible surgery. -Check echocardiogram -Continue Zosyn start Vancomycin -Garcia cultures -IVF -- elevated BNP -Check echo -Suspected cardiomyopathy - cautious IVF -Check ABG Right small PTX -Pt need Decortication with pleurodesis Hemoptysis - probably secondary to above -Will plan bronchoscopy after pt is intubated to r/o endobronchial mass -Check TB GOLD Hypokalemia -Replace -Check mag, and phos Tobacco use -Education NSTEMI probably secondary to severe sepsis -Cardiology following -Echo ordered Elevated Bili with normal LFTs -MOntior I discussed with pt regarding current status and expected hospital coarse. After discussion pt agrees to short term intubation only. She is remains no CODE BLUE, no chest compressions. I also offered to transfer pt to tertiary hospital however she does not want that either. UPDATE: Dr. Vanegas called me secondary to finding an EF of 10% on echocardiogram. I also discussed with Dr. King and he thinks this may be a PTX vs bronchopleural fistula and possible endobronchial mass. I am going to proceed with intubation and do bronchoscopy. If pt does have a bronchopleural fistula she will probably need to be transferred to . Pt will need chest tube after intubation secondary to positive pressure. I explained to patient and family plan of care and severity of her current condition. At this time prognosis is guarded. Pt is ok with transfer only if absolutely needed. Critical Care: Critically Ill Patient Time spent with patient (mins): 120 FRANKY HUDDLESTON DO Apr 04, 2019 05:39
[2019-04-04] MEDS ORDERED: PHARMACY TO DOSE IV SCH (05:45)
[2019-04-04 06:10] LABS: BASOPHILS % (AUTO) 0 % (0-10); EOSINOPHILS % (AUTO) 0 % (0-10); HEMATOCRIT 41 % (35-52); HEMOGLOBIN 13.5 G/DL (11.5-16.0); LYMPHOCYTES # (AUTO) 1.5 X 10^3 (1.0-4.0); LYMPHOCYTES % (AUTO) 13 % (12-44); MEAN CORPUSCULAR HEMOGLOBIN 28 PG (25-34); MEAN CORPUSCULAR HGB CONC 33 G/DL (32-36); MEAN CORPUSCULAR VOLUME 84 FL (80-99); MEAN PLATELET VOLUME 10.7 FL (7.4-10.4); MONOCYTES % (AUTO) 8 % (0-12); NEUTROPHILS # (AUTO) 9.2 X 10^3 (1.8-7.8); NEUTROPHILS % (AUTO) 79 % (42-75); PLATELET COUNT 240 10^3/uL (130-400); RED CELL DISTRIBUTION WIDTH 17.5 % (10.0-14.5); WHITE BLOOD COUNT 11.7 10^3/uL (4.3-11.0)
[2019-04-04] MEDS ORDERED: LACTATED RINGERS 1,000 ML IV ONE ×2 (06:15)
[2019-04-04 06:21] LABS: ALANINE AMINOTRANSFERASE 7 U/L (0-55); ALBUMIN 3.5 GM/DL (3.2-4.5); ALKALINE PHOSPHATASE 86 U/L (40-136); BILIRUBIN,TOTAL 1.7 MG/DL (0.1-1.0); BUN/CREATININE RATIO 20; CALCIUM 9.1 MG/DL (8.5-10.1); CARBON DIOXIDE 21 MMOL/L (21-32); CHLORIDE 100 MMOL/L (98-107); CREATININE SERUM 0.87 MG/DL (0.60-1.30); GFR ESTIMATED > 60; GLUCOSE 125 MG/DL (70-105); POTASSIUM 3.4 MMOL/L (3.6-5.0); SODIUM 136 MMOL/L (135-145); TOTAL PROTEIN 6.9 GM/DL (6.4-8.2)
[2019-04-04] MEDS ORDERED: VANCOMYCIN 2,500 MG/NS 500 ML IVPB IV NR ×2 (07:30)
--- NOTE | 2019-04-04 07:40 | Diagnostic Imaging Report ---
INDICATION: Dyspnea. Portable upright AP view of the chest is obtained. No previous study is available at this time for comparison. FINDINGS: There is large amount of right pleural fluid with approximately 10-15% right pneumothorax. There is cardiomegaly. Left lung appears to be expanded. IMPRESSION: Moderate to large right hydropneumothorax without midline shift. Dictated by: Dictated on workstation # [id number]
--- NOTE | 2019-04-04 07:44 | Diagnostic Imaging Report ---
PROCEDURE: CT angiography of the chest with contrast. TECHNIQUE: Multiple contiguous axial images were obtained through the chest after uneventful bolus administration of intravenous contrast. 3D reconstructed CTA MIP acquisitions were also performed. Auto Exposure Controls were utilized during the CT exam to meet ALARA standards for radiation dose reduction. INDICATION: Dyspnea. FINDINGS: There is good opacification of pulmonary arteries without intraluminal filling defect. No definite thoracic aortic abnormality is identified. There is large amount of right pleural fluid with associated atelectasis and consolidation in the compressed right lung with near complete collapse of right middle and lower lobes. In addition, there is approximately 10 to 15% anti-dependent right pneumothorax. Left lung is clear. There is generalized cardiomegaly with diffuse chamber dilatation. Coronary artery calcification is noted. Small amount of pericardial fluid is present. IMPRESSION: Large right pleural effusion with associated 10 to 15% right pneumothorax. There is associated atelectasis and consolidation with near-complete collapse of right middle and lower lobes. Small pericardial effusion is also present. No definite pulmonary embolism is identified. Dictated by: Dictated on workstation # [id number]
[2019-04-04 07:45] LABS: MAGNESIUM 1.8 MG/DL (1.6-2.4); PHOSPHORUS 3.8 MG/DL (2.3-4.7)
--- NOTE | 2019-04-04 07:49 | Consultation - Surgery ---
[facility]ARTINEZ [facility] 04/04/19 0749: History of Present Illness History of Present Illness Patient Consulted On(deo/time) 04/04/19 07:43 Date Seen by Provider: Apr 04, 2019 Time Seen by Provider: 07:35 History of Present Illness Pt reports that since 03/08/19 she has had episodes of shortness of breath off and on. She reports that this episode started 3 days ago and has been associated with coughing blood. She states she is very overwhelmed right now and very thirsty wondering about NPO status. She says she feels like crap with fatigue and weakness. CT showed right pleural effusion with complete collapse of middle and lower lobes. Allergies and Home Medications Allergies Coded Allergies: cephalexin (Verified Allergy, Mild, 10/04/18) ciprofloxacin (Verified Allergy, Mild, 10/04/18) nitrofurantoin (Verified Allergy, Mild, 10/04/18) codeine (Unverified Allergy, Unknown, 04/04/19) sulfamethoxazole (Unverified Allergy, Unknown, 04/04/19) trimethoprim (Unverified Allergy, Unknown, 04/04/19) Uncoded Allergies: TAPE (Allergy, Intermediate, 10/04/18) Home Medications Quetiapine Fumarate 100 Mg Tablet, 100 MG PO HS, (Reported) Past Edxhkja-Lgablm-Lcwvaa Hx Patient Social History Alcohol Use: Rarely Uses Number of Drinks Today: AA Recreational Drug Use: No Smoking Status: Current Everyday Smoker Type Used: Cigarettes 2nd Hand Smoke Exposure: Yes Recent Foreign Travel: No Contact w/Someone Who Travel: No Recent Infectious Disease Expo: No Recent Hopitalizations: No Immunizations Up To Date Tetanus Booster (TDap): Unknown PED Vaccines UTD: Yes Date of Influenza Vaccine: Feb 02, 2019 Seasonal Allergies Seasonal Allergies: No Surgeries History of Surgeries: Yes (L KNEE) Surgeries: Amputation (toe), Section, Orthopedic Respiratory History of Respiratory Disorde: No Cardiovascular History of Cardiac Disorders: No Neurological History of Neurological Disord: No Reproductive System : 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 Genitourinary History of Genitourinary Disor: No Gastrointestinal History of Gastrointestinal Di: No Musculoskeletal History of Musculoskeletal Dis: Yes Musculoskeletal Disorders: Arthritis Endocrine History of Endocrine Disorders: No HEENT History of HEENT Disorders: No Cancer History of Cancer: No Psychosocial History of Psychiatric Problem: No Integumentary History of Skin or Integumenta: No Blood Transfusions History of Blood Disorders: No Adverse Reaction to a Blood Tr: No Family Medical History Family Medial History: Cardiovascular disease 19 FATHER, , Age:53 19 MOTHER FH: CABG (coronary artery bypass surgery) 19 FATHER, , Age:53 19 MOTHER FH: carotid endarterectomy 19 MOTHER, Onset:60 years & older Review of Systems-General Constitutional: No chills, No dizziness, No fever; malaise, weakness EENTM: No hearing loss, No blurred vision, No double vision, No vision loss, No nose congestion Respiratory: cough, dyspnea on exertion, hemoptysis, short of breath Cardiovascular: chest pain (Right chest that wraps around her side); No edema, No Hx of Intervention Gastrointestinal: No abdominal pain; constipation (Chronic); No diarrhea, No nausea, No vomiting Genitourinary: No dysuria, No hematuria Musculoskeletal: No back pain, No muscle weakness Psychiatric/Neurological: Denies Headache, Denies Numbness, Denies Tingling Physical Exam-General Problems Physical Exam Vital Signs Vital Signs - First Documented 04/04/19 04/04/19 04/04/19 00:06 00:08 04:24 Temp 36.5 Pulse 123 Resp 26 B/P (MAP) 118/96 (103) Pulse Ox 99 O2 Delivery Room Air O2 Flow Rate 2.00 FiO2 96 Capillary Refill : Less Than 3 Seconds General Appearance: WD/WN, mild distress HEENT: PERRL/EOMI Neck: full range of motion, normal inspection Respiratory: chest non-tender, no accessory muscle use Cardiovascular: normal peripheral pulses, regular rate, rhythm, no edema, no murmur Peripheral Pulses: 2+ Radial Pulses (R), 2+ Radial Pulses (L) Gastrointestinal: normal bowel sounds, soft Extremities: normal range of motion, no pedal edema, no calf tenderness Neurologic/Psychiatric: no motor/sensory deficits, alert, normal mood/affect, oriented x 3 Skin: normal color, cool Data Review Labs Laboratory Tests 04/04/19 00:17: White Blood Count 12.2H, Red Blood Count 5.20, Hemoglobin 14.5, Hematocrit 44, Mean Corpuscular Volume 85, Mean Corpuscular Hemoglobin 28, Mean Corpuscular Hemoglobin Concent 33, Red Cell Distribution Width 17.8H, Platelet Count 290, Mean Platelet Volume 10.7H, Neutrophils (%) (Auto) 82H, Lymphocytes (%) (Auto) 10L, Monocytes (%) (Auto) 8, Eosinophils (%) (Auto) 0, Basophils (%) (Auto) 0, Neutrophils # (Auto) 10.0H, Lymphocytes # (Auto) 1.2, Monocytes # (Auto) 0.9, Eosinophils # (Auto) 0.1, Basophils # (Auto) 0.0, Prothrombin Time 17.2H, INR Comment 1.4, Activated Partial Thromboplast Time 35, D-Dimer 1.13H, Sodium Level 134L, Potassium Level 3.6, Chloride Level 97L, Carbon Dioxide Level 21, Anion Gap 16H, Blood Urea Nitrogen 17, Creatinine 1.07, Estimat Glomerular Filtration Rate 54, BUN/Creatinine Ratio 16, Glucose Level 157H, Lactic Acid Level 2.62*H, Calcium Level 9.5, Corrected Calcium 9.7, Magnesium Level 1.8, Total Bilirubin 2.0H, Aspartate Amino Transf (AST/SGOT) 9, Alanine Aminotransferase (ALT/SGPT) 8, Alkaline Phosphatase 97, Myoglobin 76.1, Troponin I 0.080H, C-Reactive Protein High Sensitivity 18.93H, B-Type Natriuretic Peptide 1748.4H, Total Protein 7.5, Albumin 3.8 04/04/19 02:20: Lactic Acid Level 1.20 04/04/19 02:54: Urine Color YELLOW, Urine Clarity CLEAR, Urine pH 6.0, Urine Specific Condon <=1.005, Urine Protein NEGATIVE, Urine Glucose (UA) NEGATIVE, Urine Ketones NEGATIVE, Urine Nitrite NEGATIVE, Urine Bilirubin NEGATIVE, Urine Urobilinogen 0.2, Urine Leukocyte Esterase NEGATIVE, Urine RBC (Auto) NEGATIVE, Urine RBC NONE, Urine WBC NONE, Urine Squamous Epithelial Cells 2-5, Urine Crystals NONE, Urine Bacteria NEGATIVE, Urine Casts NONE, Urine Mucus NEGATIVE, Urine Culture Indicated NO 04/04/19 05:40: White Blood Count 11.7H, Red Blood Count 4.84, Hemoglobin 13.5, Hematocrit 41, Mean Corpuscular Volume 84, Mean Corpuscular Hemoglobin 28, Mean Corpuscular H emoglobin Concent 33, Red Cell Distribution Width 17.5H, Platelet Count 240, Mean Platelet Volume 10.7H, Neutrophils (%) (Auto) 79H, Lymphocytes (%) (Auto) 13, Monocytes (%) (Auto) 8, Eosinophils (%) (Auto) 0, Basophils (%) (Auto) 0, Neutrophils # (Auto) 9.2H, Lymphocytes # (Auto) 1.5, Monocytes # (Auto) 1.0, Eosinophils # (Auto) 0.0, Basophils # (Auto) 0.0, Sodium Level 136, Potassium Level 3.4L, Chloride Level 100, Carbon Dioxide Level 21, Anion Gap 15H, Blood Urea Nitrogen 17, Creatinine 0.87, Estimat Glomerular Filtration Rate > 60, BUN/Creatinine Ratio 20, Glucose Level 125H, Calcium Level 9.1, Corrected Calc ium 9.5, Total Bilirubin 1.7H, Aspartate Amino Transf (AST/SGOT) 11, Alanine Aminotransferase (ALT/SGPT) 7, Alkaline Phosphatase 86, Troponin I 0.182H, Total Protein 6.9, Albumin 3.5 04/04/19 06:50: Assessment/Plan Assessment/Plan Assessment/Plan Pneumonia with sepsis and right empyema -Consider decortication -Check echocardiogram -Continue Zosyn start Vancomycin Right small PTX -Pt need Decortication with pleurodesis Hemoptysis - probably secondary to above Tobacco use -Education NSTEMI probably secondary to severe sepsis -Cardiology following -Echo ordered Clinical Quality Measures DVT/VTE Risk/Contraindication: Risk Factor Score Per Nursin RFS Level Per Nursing on Admit: 4+=Very High DOROTEO HORNER DO 04/04/192027: History of Present Illness History of Present Illness History of Present Illness Consult requested for pleural effusion/empyema right chest Chart reviewed. Patient intubated and sedated. Patient is a 54 year old female feeling ill for about 2 months. Worsened over last 3 days having cough and some blood. She is having weakness shortness of breath and worse with activity. Patient had ct scan performed showing large fluid collection of the right chest that appears to be pleural effusion, chance of empyema and about a 15 percent pneumothorax. Allergies and Home Medications Allergies Coded Allergies: cephalexin (Verified Allergy, Mild, 10/04/18) ciprofloxacin (Verified Allergy, Mild, 10/04/18) nitrofurantoin (Verified Allergy, Mild, 10/04/18) codeine (Unverified Allergy, Unknown, 04/04/19) sulfamethoxazole (Unverified Allergy, Unknown, 04/04/19) trimethoprim (Unverified Allergy, Unknown, 04/04/19) Uncoded Allergies: TAPE (Allergy, Intermediate, 10/04/18) Home Medications Quetiapine Fumarate 100 Mg Tablet, 100 MG PO HS, (Reported) Patient Home Medication List Home Medication List Reviewed: Yes Past Ujeixkm-Zdaegv-Dhsyuc Hx Reviewed Nursing Assessment Reviewed/Agree w Nursing PMH: Yes Family Medical History Significant Family History: No Pertinent Family Hx Family Medial History: Cardiovascular disease 19 FATHER, , Age:53 19 MOTHER FH: CABG (coronary artery bypass surgery) 19 FATHER, , Age:53 19 MOTHER FH: carotid endarterectomy 19 MOTHER, Onset:60 years & older Review of Systems-General ROS-Unable to Obtain: patient intubated and sedated Gastrointestinal: No nausea, No vomiting Musculoskeletal: No back pain, No muscle weakness Skin: No change in color, No dryness Psychiatric/Neurological: Denies Headache, Denies Numbness Physical Exam-General Problems Physical Exam General Appearance: other (intubated and sedated) HEENT: PERRL/EOMI Neck: supple, normal inspection Respiratory: other (on ventilator, equal chest rise) Cardiovascular: normal peripheral pulses, regular rate, rhythm Gastrointestinal: soft, no organomegaly Rectal: deferred Back: normal inspection Extremities: normal inspection, no pedal edema Neurologic/Psychiatric: other (sedated) Skin: normal color, warm/dry Lymphatic: no adenopathy Assessment/Plan Assessment/Plan Assessment/Plan Pneumonia with sepsis and right empyema vs pleural effusion right pneumothorax hemoptysis NSTEMI Patient with low cardiac ejection fraction, consider VATS for empyema but could do chest tube as well if pleural effusion and pneumothorax patient respiratory status declined and patient intubated. place right chest tube at bedside Supervisory-Addendum Brief Verification & Attestation Participated in pt care: history, MDM, physical Personally performed: exam, history, MDM, supervision of care Care discussed with: Medical Student Procedures: n/a Results interpretation: Verified all documentation Verification and Attestation of Medical Student E/M Service A medical student performed and documented this service in my presence. I reviewed and verified all information documented by the medical student and made modifications to such information, when appropriate. I personally performed the physical exam and medical decision making. Doroteo Horner, Apr 04, 2019,21:04 [facility] Apr 04, 2019 07:49 DOROTEO HORNER DO Apr 04, 2019 20:28
--- NOTE | 2019-04-04 08:20 | NUR ---
PTD VANCOMYCIN LABS: SCR 0.87 WBC 11.7(12.2) LA 1.2 (2.62) PLAN: VANCOMYCIN 2,500MG IV LOADING DOSE, THEN VANCOMYCIN 1,750MG IV Q12 HOURS (BASED ON PREVIOUS DOSING). WILL CHEC A TROUGH LEVEL ON 04/05 @ 1900 (PRIOR TO 4TH DOSE).
--- NOTE | 2019-04-04 08:34 | History & Physical ---
History of Present Illness History of Present Illness Reason for visit/HPI Patient came to the emergency room to And short of breath. Patient states she's been coughing 4 weeks. Patient having rib pain with cough. Patient spitting up blood. [place] patient complaining of chest pain, dyspnea and hemoptysis. Patient admitted to ICU Date of Admission Apr 04, 2019 at 01:48 Time Seen by a Provider: 08:29 I consulted on this patient on 04/04/19 08:29 Attending Physician Chente Hernadez DO Admitting Physician Chente Hernadez DO Consult Allergies and Home Medications Allergies Coded Allergies: cephalexin (Verified Allergy, Mild, 10/04/18) ciprofloxacin (Verified Allergy, Mild, 10/04/18) nitrofurantoin (Verified Allergy, Mild, 10/04/18) codeine (Unverified Allergy, Unknown, 04/04/19) sulfamethoxazole (Unverified Allergy, Unknown, 04/04/19) trimethoprim (Unverified Allergy, Unknown, 04/04/19) Uncoded Allergies: TAPE (Allergy, Intermediate, 10/04/18) Patient Home Medication List Home Medication List Reviewed: No Past Gvkcdde-Cicxvr-Rctrml Hx Past Med/Social Hx: Reviewed Nursing Past Med/Soc Hx Patient Social History Marrital Status: single Alcohol Use: Rarely Uses Number of Drinks Today: AA Alcohol Beverage of Choice: Beer Recreational Drug Use: No Smoking Status: Current Everyday Smoker Type Used: Cigarettes 2nd Hand Smoke Exposure: Yes Recent Foreign Travel: No Contact w/other who traveled: No Recent Hopitalizations: No Recent Infectious Disease Expo: No Immunizations Up To Date Tetanus Booster (TDap): Unknown Pediatric: Yes Date of Influenza Vaccine: Feb 02, 2019 Seasonal Allergies Seasonal Allergies: No Past Medical History Surgeries: Amputation (toe), Section, Orthopedic : No Menopausal Musculoskeletal: Arthritis History of Blood Disorders: No Adverse Reaction to Blood Monsalve: No Family History Cardiovascular disease 19 FATHER, , Age:53 19 MOTHER FH: CABG (coronary artery bypass surgery) 19 FATHER, , Age:53 19 MOTHER FH: carotid endarterectomy 19 MOTHER, Onset:60 years & older Review of Systems Constitutional: malaise, weakness EENTM: no symptoms reported Respiratory: dyspnea on exertion, short of breath, other Cardiovascular: chest pain, other (Short of breath.) Gastrointestinal: no symptoms reported Genitourinary: no symptoms reported Physical Exam Vital Signs Vital Signs - First Documented 04/04/19 04/04/19 04/04/19 00:06 00:08 04:24 Temp 36.5 Pulse 123 Resp 26 B/P (MAP) 118/96 (103) Pulse Ox 99 O2 Delivery Room Air O2 Flow Rate 2.00 FiO2 96 Capillary Refill : Less Than 3 Seconds Height, Weight, BMI Height: 6'1.00" Weight: 230lbs. oz. 104.626278yt; 32.28 BMI Method:Stated General Appearance: Mild Distress Eyes: Bilateral Eye Normal Inspection HEENT: Normal ENT Inspection Neck: Full Range of Motion, Normal Inspection Respiratory: No Accessory Muscle Use, Other (Decrease lung sounds, none on one side) Cardiovascular: Regular Rate, Rhythm, No Murmur Gastrointestinal: Non Tender, Soft Assessment/Plan Assessment and Plan Large right pleural effusion. Lymphedema. 10-15 percent right pneumothorax. Sepsis. Non-ST elevated NV. Hemoptysis. Admission Diagnosis Admission Status: Inpatient Order (span 2 midnights) Reason for Inpatient Admission: Non-ST elevated NV. Emphysema. Pneumothorax. Pleural effusion. Patient may need surgery. We'll hold Anergis Clinical Quality Measures DVT/VTE Risk/Contraindication: Risk Factor Score Per Nursin RFS Level Per Nursing on Admit: 4+=Very High CHENTE HERNADEZ DO Apr 04, 2019 08:34
[2019-04-04] MEDS: PIPERACILLIN/TAZOBACTAM (BULK) 4.5 GM in NS (IVPB) 100 ML IV SCH ×3 (08:47→22:41)
[2019-04-04] MEDS: LACTATED RINGERS 1,000 ML IV SCH ×3 (08:48→19:56)
[2019-04-04] MEDS: POTASSIUM CL 10MEQ/50ML IVPB 50 ML IV SCH ×3 (08:49→16:27)
[2019-04-04] MEDS ORDERED: ENOXAPARIN 100 MG/1 ML (LOVENOX) SYR SC SCH (09:00)
[2019-04-04] MEDS ORDERED: morphine INJ 4 MG/ML 1 ML (VIAL/SYRINGE) IVP PRN (09:00)
[2019-04-04] MEDS ORDERED: morphine INJ 4 MG/ML 1 ML (VIAL/SYRINGE) ONE (09:12)
[2019-04-04] MEDS ORDERED: HEParin 1000 UNIT/ML (10ML VIAL) FOR BOLUS ONE (09:48)
[2019-04-04] MEDS ORDERED: LIDOCAINE 1% INJ 20 ML 20 ML VIAL ONE (09:48)
[2019-04-04] MEDS ORDERED: NS IV 1000 ML 0 ML ONE (09:48)
--- NOTE | 2019-04-04 10:05 | NUR ---
Pastoral care visit.
--- NOTE | 2019-04-04 10:09 | NUR ---
SPOKE WITH THE PATIENT ABOUT HER MEDICATIONS. SHE STATES SHE TAKES SEROQUEL HS AND I VERIFIED THAT WITH THE EXT MED HX. SHE ALSO STATES SHE TOOK AN 80MG LASIX ON TUESDAY AND ANOTHER ON TUESDAY, THIS IS NOT PRESCRIBED TO HER BUT SHE HAD ACCESS TO THE MEDICATION AND SHE STATES HER KNEW SHE TOOK IT. SHE ONLY TOOK THE DOSE ONCE DAILY ON THOSE TWO DAYS. I DID NOT INCLUDE IT ON THE MED REC SINCE IT IS NOT PRESCRIBED TO HER AND NOT SOMETHING SHE TAKES REGULARLY. SHE STATES SHE DOES NOT TAKE ANYTHING OTC.
[2019-04-04] MEDS ORDERED: DOPamine DRIP 250 ML IV ONE (10:28)
[2019-04-04] MEDS ORDERED: proPOfol 200 MG/20 ML (DIPRIVAN) VIAL IV ONE (10:29)
[2019-04-04] MEDS ORDERED: PROPOFOL DRIP (ICU) 100 ML IV ONE ×3 (10:29→14:52)
--- NOTE | 2019-04-04 10:56 | Consultation-Cardiology ---
HPI-Cardiology Cardiology Consultation Date of Consultation 04/04/19 Date of Admission Time Seen by Provider: 10:50 Indication: Shortness of breath HPI 54-year-old lady with history of hypertension, started to have increasing shortness of breath for the past month. Has been complaint of fatigue, chronic cough. Sputum. Had chronic pedal edema, started to have worsening dyspnea and came to the emergency room for increasing shortness of breath. Patient did not have any previous cardiac history, on my evaluation she was laying down in bed, using oxygen mask, still short of breath at rest, has large right pleural effusion, has small pneumothorax and pulmonary edema in addition to severe cardiomyopathy with ejection fraction 10-15 percent, abnormal EKG Home Medications & Allergies Allergies: Coded Allergies: cephalexin (Verified Allergy, Mild, 10/04/18) ciprofloxacin (Verified Allergy, Mild, 10/04/18) nitrofurantoin (Verified Allergy, Mild, 10/04/18) codeine (Unverified Allergy, Unknown, 04/04/19) sulfamethoxazole (Unverified Allergy, Unknown, 04/04/19) trimethoprim (Unverified Allergy, Unknown, 04/04/19) Uncoded Allergies: TAPE (Allergy, Intermediate, 10/04/18) Home Medication List Reviewed: Yes [id number]-[id number]-[id number] Hx Patient Social History Marital Status: single Alcohol Use: Rarely Uses Recreational Drug Use: No Smoking Status: Current Everyday Smoker Type Used: Cigarettes 2nd Hand Smoke Exposure: Yes Recent Foreign Travel: No Recent Infectious Disease Expo: No Recent Hopitalizations: No Immunizations Up To Date Tetanus Booster (TDap): Unknown Date of Influenza Vaccine: Feb 02, 2019 Past Medical History Discussed below Family Medical History Family History: Cardiovascular disease 19 FATHER, , Age:53 19 MOTHER FH: CABG (coronary artery bypass surgery) 19 FATHER, , Age:53 19 MOTHER FH: carotid endarterectomy 19 MOTHER, Onset:60 years & older Review of Systems-General Review of Systems Constitutional: see HPI, diaphoresis, malaise, weakness EENTM: see HPI, no symptoms reported Respiratory: see HPI, dyspnea on exertion, phlegm, short of breath, wheezing, other Cardiovascular: see HPI, chest pain, edema, other (Short of breath.) Gastrointestinal: no symptoms reported, see HPI Genitourinary: no symptoms reported, see HPI Musculoskeletal: No back pain, No muscle weakness Skin: no symptoms reported, see HPI Psychiatric/Neurological: See HPI; Denies Headache, Denies Numbness, Denies Tingling Reviewed Test Results Reviewed Test Results Lab Laboratory Tests Test 04/04/19 00:17 04/04/19 02:20 04/04/19 02:54 04/04/19 05:40 Range/Units White Blood Count 12.2 H 11.7 H 4.3-11.0 10^3/uL Red Blood Count 5.20 4.84 4.35-5.85 10^6/uL Hemoglobin 14.5 13.5 11.5-16.0 G/DL Hematocrit 44 41 35-52 % Mean Corpuscular Volume 85 84 80-99 FL Mean Corpuscular Hemoglobin 28 28 25-34 PG Mean Corpuscular Hemoglobin Concent 33 33 32-36 G/DL Red Cell Distribution Width 17.8 H 17.5 H 10.0-14.5 % Platelet Count 290 240 130-400 10^3/uL Mean Platelet Volume 10.7 H 10.7 H 7.4-10.4 FL Neutrophils (%) (Auto) 82 H 79 H 42-75 % Lymphocytes (%) (Auto) 10 L 13 12-44 % Monocytes (%) (Auto) 8 8 0-12 % Eosinophils (%) (Auto) 0 0 0-10 % Basophils (%) (Auto) 0 0 0-10 % Neutrophils # (Auto) 10.0 H 9.2 H 1.8-7.8 X 10^3 Lymphocytes # (Auto) 1.2 1.5 1.0-4.0 X 10^3 Monocytes # (Auto) 0.9 1.0 0.0-1.0 X 10^3 Eosinophils # (Auto) 0.1 0.0 0.0-0.3 10^3/uL Basophils # (Auto) 0.0 0.0 0.0-0.1 10^3/uL Prothrombin Time 17.2 H 12.2-14.7 SEC INR Comment 1.4 0.8-1.4 Activated Partial Thromboplast Time 35 24-35 SEC D-Dimer 1.13 H 0.00-0.49 UG/ML Sodium Level 134 L 136 135-145 MMOL/L Potassium Level 3.6 3.4 L 3.6-5.0 MMOL/L Chloride Level 97 L 100 98-107 MMOL/L Carbon Dioxide Level 21 21 21-32 MMOL/L Anion Gap 16 H 15 H 5-14 MMOL/L Blood Urea Nitrogen 17 17 7-18 MG/DL Creatinine 1.07 0.87 0.60-1.30 MG/DL Estimat Glomerular Filtration Rate 54 > 60 BUN/Creatinine Ratio 16 20 Glucose Level 157 H 125 H 70-105 MG/DL Lactic Acid Level 2.62 *H 1.20 0.50-2.00 MMOL/L Calcium Level 9.5 9.1 8.5-10.1 MG/DL Corrected Calcium 9.7 9.5 8.5-10.1 MG/DL Magnesium Level 1.8 1.8 1.6-2.4 MG/DL Total Bilirubin 2.0 H 1.7 H 0.1-1.0 MG/DL Aspartate Amino Transf (AST/SGOT) 9 11 5-34 U/L Alanine Aminotransferase (ALT/SGPT) 8 7 0-55 U/L Alkaline Phosphatase 97 86 40-136 U/L Myoglobin 76.1 10.0-92.0 NG/ML Troponin I 0.080 H 0.182 H <0.028 NG/ML C-Reactive Protein High Sensitivity 18.93 H 0.00-0.50 MG/DL B-Type Natriuretic Peptide 1748.4 H <100.0 PG/ML Total Protein 7.5 6.9 6.4-8.2 GM/DL Albumin 3.8 3.5 3.2-4.5 GM/DL Urine Color YELLOW Urine Clarity CLEAR Urine pH 6.0 5-9 Urine Specific [place] <=1.005 1.016-1.022 Urine Protein NEGATIVE NEGATIVE Urine Glucose (UA) NEGATIVE NEGATIVE Urine Ketones NEGATIVE NEGATIVE Urine Nitrite NEGATIVE NEGATIVE Urine Bilirubin NEGATIVE NEGATIVE Urine Urobilinogen 0.2 < = 1.0 MG/DL Urine Leukocyte Esterase NEGATIVE NEGATIVE Urine RBC (Auto) NEGATIVE NEGATIVE Urine RBC NONE /HPF Urine WBC NONE /HPF Urine Squamous Epithelial Cells 2-5 /HPF Urine Crystals NONE /LPF Urine Bacteria NEGATIVE /HPF Urine Casts NONE /LPF Urine Mucus NEGATIVE /LPF Urine Culture Indicated NO Phosphorus Level 3.8 2.3-4.7 MG/DL Test 04/04/19 06:50 Range/Units Physical Exam Physical Exam Vital Signs Vital Signs - First Documented 04/04/19 04/04/19 04/04/19 00:06 00:08 04:24 Temp 36.5 Pulse 123 Resp 26 B/P (MAP) 118/96 (103) Pulse Ox 99 O2 Delivery Room Air O2 Flow Rate 2.00 FiO2 96 Capillary Refill : Less Than 3 Seconds Height, Weight, BMI Height: 6'1.00" Weight: 230lbs. oz. 104.287715tk; 32.28 BMI Method:Stated General Appearance: Moderate Distress, Severe Distress Eyes: Bilateral Eye Normal Inspection HEENT: Normal ENT Inspection Neck: Full Range of Motion, Normal Inspection Respiratory: No Accessory Muscle Use, Decreased Breath Sounds, Inspiration, Other (Decrease lung sounds, none on one side) Cardiovascular: Regular Rate, Rhythm, Systolic Murmur, Gallop/S3 Gastrointestinal: Non Tender, Soft Back: Normal Inspection, No CVA Tenderness, No Vertebral Tenderness Extremity: Normal Inspection, Pedal Edema, Swelling Neurologic/Psychiatric: Alert, Oriented x3, No Motor/Sensory Deficits, Normal Mood/Affect, 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 workup for the underlying infection is in progress Congestive heart failure, acute left ventricular systolic dysfunction with ejection fraction 10 percent, unknown etiology, probably ischemic in nature, planning to proceed with cardiac catheterization, we will start her on dobutamine to support her blood pressure for now and I am using diuretic cautiously with close monitoring to her blood pressure. Cannot tolerate beta blockers, MANAN inhibitor and/or ARB due to hypotension Mild elevation in troponin, could be secondary to heart failure or underlying coronary artery disease planning to proceed with cardiac catheterization. Large right pleural effusion with small pneumothorax. Patient will need thoracentesis Acute respiratory failure, discussed with Dr. 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
[2019-04-04] MEDS: DOBUTamine DRIP 250 ML IV SCH ×3 (11:00→22:32)
[2019-04-04] MEDS: PROPOFOL DRIP (ICU) 100 ML IV SCH ×7 (11:00→23:50)
[2019-04-04] MEDS: DOPamine DRIP 250 ML IV SCH ×2 (11:15→22:36)
[2019-04-04] MEDS ORDERED: LIDOCAINE PF 1% 2 ML VIAL IJ ONE (12:39)
[2019-04-04] MEDS ORDERED: LIDOCAINE JELLY 2% 6 ML SYRINGE MM ONE (12:39)
--- NOTE | 2019-04-04 13:00 | NUR ---
PROCEDURE TIMELINE NOTE: 1110: DR. HUDDLESTON IN ROOM. 1112: 4 OF VERSED ADMINISTERED. PT POSITIONED FOR MECHANICAL VENTILATION AND BRONCHOSCOPY. 1114: DOPAMINE DRIP STARTED AT 5MCG/KG/HR. 1115: 50 OF FENTANYL ADMINISTERED. 1121: 50 OF PROPOFOL ADMINISTERED AND BRONCHOSCOPY STARTED. 1122: 50 OF PROPOFOL ADMINISTERED. 1123: PT INTUBATED WITH THE FOLLOWING SETTINGS: SIZE 8 ET TUBE, TV 400, FI02 100%, RESP OF 16, AND PEEP OF 0. 1124: PROPOFOL DRIP STARTED. 1125: CLOTH RESTRAINTS ORDERED AND PLACED. 1130: 50 OF ROCURONIUM ADMINISTERED. 1145: BRONCHOSCOPY AND WASHINGS FINISHED. DR HUDDLESTON TO PROCEED WITH CHEST TUBE PLACEMENT. 1147: 50 OF FENTANYL ADMINISTERED, 1210: DR. GALICIA IN ROOM AT THIS TIME, ASSISTING DR. HUDDLESTON WITH CHEST TUBE PLACEMENT. 1215: 50 OF FENTANYL ADMINISTERED, PROPOFOL DRIP INCREASED TO 50. CHEST TUBE PLACED, IMMEDIATE RETURN OF 1500ML OF FLUID TO [facility], DR. HUDDLESTON TO START CENTRAL LINE PLACEMENT. 1220: CENTRAL LINE PLACED, X-RAY ORDERED TO VERIFY PLACEMENT.
--- NOTE | 2019-04-04 13:08 | Pulmonary Procedures ---
Pulmonary Procedures Date of Procedure Date of Service: Apr 04, 2019 Lumen: triple (US guidance) Central Line Procedure: betadine prep, sterile drapes applied, sterile dressing applied Position: internal jugular (R) Anesthesia: local Volume Anesthetic (ccs): 5 Complications: none Post Position: sutured, good blood return, position confirmed w/ CXR FRANKY HUDDLESTON DO Apr 04, 2019 13:08
--- NOTE | 2019-04-04 13:08 | Pulmonary Procedures ---
Pulmonary Procedures Date of Procedure Date of Service: Apr 04, 2019 Bronch Bronchoscopy with bilateral washes. Preop DX hemoptysis r/o endobronchial mass Postop DX: No signs of active bleeding. No endobronchial mass. Complications: none After informed consent obtained and formal time out pt was sedated using F entanyl propofol, and Versed. Bronchoscope was advanced through the ET tube. An anatomical tour was undertaken down to the segmental bronchi bilaterally. No endobronchial lesions noted. Bilateral washes were obtained. Pt tolerated procedure well. No complications noted. Stat CXR is pending. FRANKY HUDDLESTON DO Apr 04, 2019 13:08
--- NOTE | 2019-04-04 13:09 | Pulmonary Procedures ---
Pulmonary Procedures Date of Procedure Date of Service: Apr 04, 2019 Reason for Intubation: Acute respiratory failure Intubation Method: orotracheal Tube Size: 8 Medications: Fentanyl, Propofol, Rocuronium, Versed Positive End Tide CO2: Yes Breath Sounds after Intubation: bilateral-equal Intubation Complications: no complications Post Intubation Xray: Yes FRANKY HUDDLESTON DO Apr 04, 2019 13:09
--- NOTE | 2019-04-04 13:12 | Diagnostic Imaging Report ---
INDICATION: Central line placement. TIME OF EXAM: 12:39 p.m. COMPARISON: Correlation is made with prior chest from earlier same day. FINDINGS: Patient has been intubated. ET tube has tip in good position above the santosh. NG tube passes into the stomach. There is a right IJ line with tip overlying the SVC. A large-bore chest tube on the right has been placed with significant reduction in right-sided pleural effusion. There is a small right basilar pneumothorax. There are some central congestive changes noted. The heart is enlarged. IMPRESSION: Satisfactory placement of various lines and catheters. There is significant reduction in right-sided pleural effusion, status post large-bore chest tube placement. There is a small right basilar pneumothorax. Dictated by: Dictated on workstation # [id number]
[2019-04-04] MEDS ORDERED: fentaNYL INJECTION 100 MCG/2 ML AMP INJ ONE (14:17)
[2019-04-04] MEDS ORDERED: MIDAZOLAM 5 MG/5 ML (VERSED) VIAL INJ ONE (14:17)
[2019-04-04] MEDS: RT-ALBUTEROL/IPRATROPIUM 3 ML (DUONEB) VIAL INH SCH ×3 (14:32→23:40)
--- NOTE | 2019-04-04 14:37 | NUR ---
Patient isolated from possible TB. Info sent to [facility] and [facility]. Melisa Gutierrez. [phone] at the [facility] TB division asked us to send a sputum isolate to the [facility]. It is there request that we get 3 specimens one of which is the Bronch washing that was sent to [facility] per Micro. Order requested by Melisa Gutierrez at [facility] to get 2 more isolates at the intervals requested by the [facility] and one isolate sent to the [facility]. Dr Rodriguez notified and order obtained and entered. Patient intubated currently. JOSE Styles and RT Garo notified of these orders.
[2019-04-04 15:46] LABS: GLUCOSE,BODY FLUID 54 MG/DL; LDH,BODY FLUID 887 U/L; TOTAL PROTEIN,BODY FLUID 3.6 G/DL
[2019-04-04 15:59] LABS: BODY FLUID SOURCE THORACEN
[2019-04-04 16:00] LABS: BODY FLUID APPEARENCE MKD CLDY; BODY FLUID COLOR AMBER
[2019-04-04 16:15] LABS: BODY FLUID PH 7.3
[2019-04-04 16:27] LABS: BODY FLUID WBC TOTAL COUNT 4075 /uL
[2019-04-04 16:28] LABS: BODY FLUID RBC COUNT 13800 /uL
[2019-04-04] MEDS: DexMEDEtomidine 250 ML DRIP 250 ML IV SCH (16:33)
[2019-04-04 18:39] LABS: BF OTHER CELLS 1 %; LYMPHOCYTES,BODY FLUID 33 %
[2019-04-04] MEDS: VANCOMYCIN 1,750 MG/NS 500 ML IVPB IV SCH ×2 (19:56)
[2019-04-05] VITALS (30 sets, daily range): BP systolic 90–114; BP diastolic 53–64
[2019-04-05] MEDS: DOBUTamine DRIP 250 ML IV SCH ×4 (00:04→20:23)
[2019-04-05 00:05] LABS: ABG BASE EXCESS 1.1 MMOL/L (-2.5-2.5); ABG OXYGEN SATURATION 98 % (94-100); ABG PCO2 41 MMHG (35-45); ABG PO2 89 MMHG (79-93); ABG TCO2 26.7 MMOL/L (21.0-31.0)
[2019-04-05] MEDS: NOREPINEPHRINE 4 MG/250 ML NS 250 ML IV SCH ×4 (00:05→20:24)
[2019-04-05 00:06] LABS: ALLENS TEST YES-POS; INSPIRED O2 40%; PATIENT TEMP 36.5; VENTILATOR YES
[2019-04-05 00:14] LABS: BUN/CREATININE RATIO 16; CALCIUM 8.6 MG/DL (8.5-10.1); CARBON DIOXIDE 22 MMOL/L (21-32); CHLORIDE 104 MMOL/L (98-107); CREATININE SERUM 0.73 MG/DL (0.60-1.30); GFR ESTIMATED > 60; GLUCOSE 152 MG/DL (70-105); MAGNESIUM 1.6 MG/DL (1.6-2.4); POTASSIUM 3.7 MMOL/L (3.6-5.0); SODIUM 139 MMOL/L (135-145)
[2019-04-05 01:59] LABS: ABG BASE EXCESS 1.9 MMOL/L (-2.5-2.5); ABG OXYGEN SATURATION 81 % (94-100); ABG PCO2 45 MMHG (35-45); ABG PO2 54 MMHG (79-93); ABG TCO2 27.9 MMOL/L (21.0-31.0)
[2019-04-05 02:01] LABS: ABG PH 7.39 (7.37-7.43); INSPIRED O2 36%; VENTILATOR YES
[2019-04-05 02:02] LABS: PATIENT TEMP 36.5
[2019-04-05] MEDS: PROPOFOL DRIP (ICU) 100 ML IV SCH ×7 (02:27→21:35)
[2019-04-05] MEDS: RT-ALBUTEROL/IPRATROPIUM 3 ML (DUONEB) VIAL INH SCH ×6 (03:25→21:30)
[2019-04-05 03:43] LABS: BASOPHILS % (AUTO) 0 % (0-10); EOSINOPHILS % (AUTO) 1 % (0-10); HEMATOCRIT 36 % (35-52); HEMOGLOBIN 11.7 G/DL (11.5-16.0); LYMPHOCYTES # (AUTO) 1.1 X 10^3 (1.0-4.0); LYMPHOCYTES % (AUTO) 13 % (12-44); MEAN CORPUSCULAR HEMOGLOBIN 28 PG (25-34); MEAN CORPUSCULAR HGB CONC 32 G/DL (32-36); MEAN CORPUSCULAR VOLUME 86 FL (80-99); MEAN PLATELET VOLUME 10.4 FL (7.4-10.4); MONOCYTES # (AUTO) 0.6 X 10^3 (0.0-1.0); MONOCYTES % (AUTO) 7 % (0-12); NEUTROPHILS # (AUTO) 6.8 X 10^3 (1.8-7.8); NEUTROPHILS % (AUTO) 79 % (42-75); PLATELET COUNT 218 10^3/uL (130-400); RED CELL DISTRIBUTION WIDTH 17.3 % (10.0-14.5); WHITE BLOOD COUNT 8.5 10^3/uL (4.3-11.0)
[2019-04-05 04:10] LABS: BUN/CREATININE RATIO 14; CALCIUM 8.6 MG/DL (8.5-10.1); CARBON DIOXIDE 22 MMOL/L (21-32); CHLORIDE 106 MMOL/L (98-107); CREATININE SERUM 0.71 MG/DL (0.60-1.30); GFR ESTIMATED > 60; GLUCOSE 153 MG/DL (70-105); MAGNESIUM 1.6 MG/DL (1.6-2.4); PHOSPHORUS 3.7 MG/DL (2.3-4.7); POTASSIUM 3.5 MMOL/L (3.6-5.0); SODIUM 140 MMOL/L (135-145)
[2019-04-05 04:13] LABS: CHOLESTEROL 134 MG/DL (< 200); HDL CHOLESTEROL 19 MG/DL (40-60); TRIGLYCERIDES 108 MG/DL (<150); VLDL CHOLESTEROL 22 MG/DL (5-40)
[2019-04-05] MEDS: LACTATED RINGERS 1,000 ML IV SCH ×2 (04:23→12:56)
--- NOTE | 2019-04-05 04:43 | Pulmonary Progress Note ---
Subjective Date Seen by a Provider: Apr 05, 2019 Time Seen by a Provider: 06:32 Subjective/Events-last exam PT sedated on vent. Sepsis Event Evaluation Height, Weight, BMI Height: 6'1.00" Weight: 230lbs. oz. 104.565779ip; 32.28 BMI Method:Stated Focused Exam Lactate Level 04/04/19 00:17: Lactic Acid Level 2.62*H 04/04/19 02:20: Lactic Acid Level 1.20 04/04/19 23:29: Lactic Acid Level 1.18 Time of Focused Exam: 04:00 Exam Exam Vital Signs Date Time Temp Pulse Resp B/P (MAP) Pulse Ox O2 Delivery O2 Flow Rate FiO2 04/05/19 04:02 36.2 04/05/19 04:00 96 19 90/55 (67) 100 Mechanical Ventilator 36.00 04/05/19 03:59 Mechanical Ventilator 36.00 04/05/19 03:00 96 24 91/57 (68) 100 Mechanical Ventilator 36.00 04/05/19 02:27 Mechanical Ventilator 04/05/19 02:00 96 14 94/60 (71) 100 Mechanical Ventilator 36.00 04/05/19 01:00 97 18 97/61 (73) 100 Mechanical Ventilator 36.00 04/05/19 01:00 100 04/05/19 00:07 36.5 Mechanical Ventilator 36.00 04/05/19 00:00 98 16 100/61 (74) 100 Mechanical Ventilator 40.00 04/05/19 00:00 Mechanical Ventilator 40.00 04/04/19 23:50 Mechanical Ventilator 04/04/19 23:40 100 23 100 36 04/04/19 23:00 101 21 105/70 (82) 100 Mechanical Ventilator 40.00 04/04/19 22:36 Mechanical Ventilator 04/04/19 22:32 Mechanical Ventilator 04/04/19 22:00 93 105/70 (82) 100 Mechanical Ventilator 40.00 04/04/19 21:07 Mechanical Ventilator 04/04/19 21:00 93 16 90/64 (73) 100 Mechanical Ventilator 40.00 04/04/19 20:00 36.2 04/04/19 20:00 Mechanical Ventilator 40.00 04/04/19 20:00 93 16 91/61 (71) 100 Mechanical Ventilator 40.00 04/04/19 19:00 95 04/04/19 19:00 95 19 86/56 (66) 100 Mechanical Ventilator 40.00 04/04/19 18:34 96 21 100 40 04/04/19 18:00 92 21 97/72 (80) 100 Mechanical Ventilator 40.00 04/04/19 17:00 93 95/66 (76) 100 Mechanical Ventilator 40.00 04/04/19 16:31 97 04/04/19 16:17 64 04/04/19 16:00 Mechanical Ventilator 40 04/04/19 16:00 92 95/54 (68) 100 Mechanical Ventilator 40.00 04/04/19 15:00 93 12 94/60 (71) 100 Mechanical Ventilator 40.00 04/04/19 14:57 94 28 100 40 04/04/19 14:54 Mechanical Ventilator 40.00 04/04/19 14:52 60 04/04/19 14:48 16 04/04/19 14:00 92 20 94/73 (80) 100 Mechanical Ventilator 80.00 04/04/19 13:00 92 87/51 (63) 100 Mechanical Ventilator 80.00 04/04/19 12:49 64 04/04/19 12:38 96 04/04/19 12:00 Mechanical Ventilator 80.00 04/04/19 12:00 110 13 83/56 (65) 100 Mechanical Ventilator 100.00 04/04/19 12:00 Mechanical Ventilator 80 04/04/19 11:23 Mechanical Ventilator 100.00 04/04/19 11:23 108 22 100 100 04/04/19 11:15 64 04/04/19 11:00 104 21 76/26 (43) 100 Non Rebreather 10.00 04/04/19 11:00 74 04/04/19 11:00 60 84/48 04/04/19 10:00 106 27 116/85 (95) 97 Non Rebreather 10.00 04/04/19 09:00 96 14 129/100 (110) 100 Non Rebreather 10.00 04/04/19 08:00 36.0 04/04/19 08:00 98 24 96/80 (85) 100 Non Rebreather 10.00 04/04/19 08:00 OxyMask 10.00 04/04/19 07:00 105 24 111/76 (88) 100 Non Rebreather 10.00 04/04/19 06:48 105 04/04/19 06:25 104 29 107/84 (92) 100 Non Rebreather 10.00 04/04/19 06:09 Non Rebreather 10.00 04/04/19 06:00 105 35 109/86 (94) 96 Room Air 04/04/19 05:45 101 31 80/63 (69) 95 Room Air 04/04/19 05:30 101 19 95 Room Air 04/04/19 05:15 97 26 94 Room Air 04/04/19 05:13 101 04/04/19 05:00 102 19 94 Room Air I & O 04/05/19 07:00 Intake Total 7652.5 ml Output Total 4700 ml Balance 2952.5 ml Height & Weight Height: 6'1.00" Weight: 230lbs. oz. 104.245470kx; 32.28 BMI Method:Stated General Appearance: WD/WN, Moderate Distress HEENT: PERRL/EOMI, Normal ENT Inspection Neck: Normal Inspection Respiratory: Crackles, Decreased Breath Sounds (in right base) Cardiovascular: Regular Rate, Rhythm, No Murmur, Normal Peripheral Pulses Capillary Refill: Less Than 3 Seconds Peripheral Pulses: 2+ Radial Pulses (R), 2+ Radial Pulses (L) Gastrointestinal: soft, no organomegaly Extremity: Normal Inspection, Pedal Edema, Swelling Skin: Normal Color, Warm/Dry Lymphatic: No Adenopathy Results Lab Laboratory Tests 04/04/19 00:17 04/04/19 05:40 04/04/19 23:29 04/05/19 03:25 Assessment/Plan Assessment/Plan Pneumonia with sepsis with parapneumonic effusion r/o emphyema -echocardiogram EF 10% - Zosyn start Vancomycin -Garcia cultures Right small PTX s/p chest tube -Pt may need Decortication with pleurodesis however not currently stable enough for surgery at this time -Chest tube in place Hemoptysis - -S/p bronchoscopy - - no endobronchial mass found -AFB from bronch is pending - TB GOLD - pending Severe cardiomyopathy EF 10% Cardiogenic shock -On dopamine and dobutamine -Cardiology following NSTEMI Hypokalemia -Replace -Check mag, and phos Tobacco use -Education NSTEMI probably secondary to severe sepsis -Cardiology following -Echo ordered Elevated Bili with normal LFTs -FRANKY Jordan DO Apr 05, 2019 04:43
[2019-04-05] MEDS: VASOPRESSIN INJECTION 20 UNIT in NORMAL SALINE 100 ML IV SCH ×3 (05:05→21:36)
[2019-04-05] MEDS: POTASSIUM CL 10MEQ/50ML IVPB 50 ML IV SCH ×6 (05:10→12:54)
[2019-04-05] MEDS: MAGNESIUM 1 GM/100 ML IVPB 100 ML IV SCH ×3 (05:10→07:34)
[2019-04-05] MEDS: DexMEDEtomidine 250 ML DRIP 250 ML IV SCH ×3 (05:13→22:50)
[2019-04-05] MEDS ORDERED: NS IV 1000 ML 1,000 ML ONE (07:07)
--- NOTE | 2019-04-05 07:50 | Anesthesia-Procedure Note ---
Procedures/Interventions Procedure Start/Stop/Diagnosis Date of Procedure: Apr 05, 2019 Start Time: 07:20 Brief History vent dependant Stop Time: 07:40 Postprocedural Diagnosis: Ultrasound guided arterial placement by WAGNER Quiroz. Arterial Line Arterial Line Catheter: 20G Type: Radial Location: Left Procedure: prepped, draped in sterile fashion, good wave-form was obtained, patient tolerated procedure well, no immediate complications, post procedure area cleaned, post procedure dressing applied Additional Procedures Procedures Guidewire and catheter advanced with no issue. Dressing applied. RN in room during placement, and replacement of wrist restraints by RN at procedure end. ANIYA MANZANARES CRNA Apr 05, 2019 07:50
--- NOTE | 2019-04-05 08:00 | Progress Note - Surgery ---
[facility] 04/05/19 0800: Subjective Date Seen by a Provider: Apr 05, 2019 Time Seen by a Provider: 07:09 Subjective/Events-last exam Pt intubated and sedated unable to performed ROS. Focused Exam Lactate Level 04/04/19 00:17: Lactic Acid Level 2.62*H 04/04/19 02:20: Lactic Acid Level 1.20 04/04/19 23:29: Lactic Acid Level 1.18 Time of Focused Exam: 04:00 Objective Exam Vital Signs Date Time Temp Pulse Resp B/P (MAP) Pulse Ox O2 Delivery O2 Flow Rate FiO2 04/05/19 06:39 96 21 100 30 04/05/19 06:11 Mechanical Ventilator 30.00 04/05/19 06:00 97 15 93/56 (68) 100 Mechanical Ventilator 36.00 04/05/19 05:27 Mechanical Ventilator 04/05/19 05:05 Mechanical Ventilator 04/05/19 05:00 96 17 91/60 (70) 100 Mechanical Ventilator 36.00 04/05/19 04:02 36.2 04/05/19 04:00 96 19 90/55 (67) 100 Mechanical Ventilator 36.00 04/05/19 03:59 Mechanical Ventilator 36.00 04/05/19 03:25 96 19 100 36 04/05/19 03:00 96 24 91/57 (68) 100 Mechanical Ventilator 36.00 04/05/19 02:27 Mechanical Ventilator 04/05/19 02:00 96 14 94/60 (71) 100 Mechanical Ventilator 36.00 04/05/19 01:00 97 18 97/61 (73) 100 Mechanical Ventilator 36.00 04/05/19 01:00 100 04/05/19 00:07 36.5 Mechanical Ventilator 36.00 04/05/19 00:00 98 16 100/61 (74) 100 Mechanical Ventilator 40.00 04/05/19 00:00 Mechanical Ventilator 40.00 04/04/19 23:50 Mechanical Ventilator 04/04/19 23:40 100 23 100 36 04/04/19 23:00 101 21 105/70 (82) 100 Mechanical Ventilator 40.00 04/04/19 22:36 Mechanical Ventilator 04/04/19 22:32 Mechanical Ventilator 04/04/19 22:00 93 105/70 (82) 100 Mechanical Ventilator 40.00 04/04/19 21:07 Mechanical Ventilator 04/04/19 21:00 93 16 90/64 (73) 100 Mechanical Ventilator 40.00 04/04/19 20:00 36.2 04/04/19 20:00 Mechanical Ventilator 40.00 04/04/19 20:00 93 16 91/61 (71) 100 Mechanical Ventilator 40.00 04/04/19 19:00 95 04/04/19 19:00 95 19 86/56 (66) 100 Mechanical Ventilator 40.00 04/04/19 18:34 96 21 100 40 04/04/19 18:00 92 21 97/72 (80) 100 Mechanical Ventilator 40.00 04/04/19 17:00 93 95/66 (76) 100 Mechanical Ventilator 40.00 04/04/19 16:31 97 04/04/19 16:17 64 04/04/19 16:00 Mechanical Ventilator 40 04/04/19 16:00 92 95/54 (68) 100 Mechanical Ventilator 40.00 04/04/19 15:00 93 12 94/60 (71) 100 Mechanical Ventilator 40.00 04/04/19 14:57 94 28 100 40 04/04/19 14:54 Mechanical Ventilator 40.00 04/04/19 14:52 60 04/04/19 14:48 16 04/04/19 14:00 92 20 94/73 (80) 100 Mechanical Ventilator 80.00 04/04/19 13:00 92 87/51 (63) 100 Mechanical Ventilator 80.00 04/04/19 12:49 64 04/04/19 12:38 96 04/04/19 12:00 Mechanical Ventilator 80.00 04/04/19 12:00 110 13 83/56 (65) 100 Mechanical Ventilator 100.00 04/04/19 12:00 Mechanical Ventilator 80 04/04/19 11:23 Mechanical Ventilator 100.00 04/04/19 11:23 108 22 100 100 04/04/19 11:15 64 04/04/19 11:00 104 21 76/26 (43) 100 Non Rebreather 10.00 04/04/19 11:00 74 04/04/19 11:00 60 84/48 04/04/19 10:00 106 27 116/85 (95) 97 Non Rebreather 10.00 04/04/19 09:00 96 14 129/100 (110) 100 Non Rebreather 10.00 04/04/19 08:00 36.0 04/04/19 08:00 98 24 96/80 (85) 100 Non Rebreather 10.00 04/04/19 08:00 OxyMask 10.00 I & O 04/05/19 07:00 Intake Total 8402.5 ml Output Total 5300 ml Balance 3102.5 ml Capillary Refill : Less Than 3 Seconds General Appearance: WD/WN, Moderate Distress, Other (Intubated and sedated) HEENT: PERRL/EOMI, Normal ENT Inspection Neck: Normal Inspection Respiratory: Crackles (Right middle and lower lobes), Decreased Breath Sounds (in right base) Cardiovascular: Regular Rate, Rhythm, No Murmur, Normal Peripheral Pulses Peripheral Pulses: 2+ Radial Pulses (R), 2+ Radial Pulses (L) Gastrointestinal: soft, no organomegaly Extremity: Normal Inspection, Pedal Edema, Swelling Skin: Normal Color, Warm/Dry Lymphatic: No Adenopathy Results Lab Laboratory Tests 04/04/19 12:20: Body Fluid Source THORACEN, Body Fluid Color AUSTIN, Body Fluid Appearance MKD CLDY, Body Fluid pH 7.3, Body Fluid WBC 4075, Body Fluid RBC 71467, Body Fluid Polynuclear WBCs 64, Body Fluid Mononuclear WBCs 2, Body Fluid Lymphocytes 33, Body Fluid Other Cells 1, Body Fluid Glucose 54, Body Fluid Total Protein 3.6, Body Fluid Lactate Dehydrogenase 887 04/04/19 15:22: Lyme Disease Screen IgG & IgM Ab 0.03, Lyme Antibody Interpretation Negative, [place] Antibody <1:20 04/04/19 18:18: Glucometer 166H 04/04/19 23:07: Glucometer 150H 04/04/19 23:29: Hemoglobin 12.5, Sodium Level 139, Potassium Level 3.7, Chloride Level 104, Carbon Dioxide Level 22, Anion Gap 13, Blood Urea Nitrogen 12, Creatinine 0.73, Estimat Glomerular Filtration Rate > 60, BUN/Creatinine Ratio 16, Glucose Level 152H, Lactic Acid Level 1.18, Calcium Level 8.6, Magnesium Level 1.6, Troponin I 0.510*H, B-Type Natriuretic Peptide 1831.9H, Albumin 3.0L 04/04/19 23:45: Blood Gas Puncture Site R RAD, Blood Gas Patient Temperature 36.5, Arterial Blood pH 7.40, Arterial Blood Partial Pressure CO2 41, Arterial Blood Partial Pressure O2 89, Arterial Blood HCO3 25, Arterial Blood Total CO2 26.7, Arterial Blood Oxygen Saturation 98, Arterial Blood Base Excess 1.1, Scott Test YES-POS, Blood Gas Ventilator Setting YES, Blood Gas Inspired Oxygen 40% 04/05/19 01:50: Blood Gas Puncture Site CENTRAL LINE, Blood Gas Patient Temperature 36.5, Arterial Blood pH 7.39, Arterial Blood Partial Pressure CO2 45, Arterial Blood Partial Pressure O2 54L, Arterial Blood HCO3 27, Arterial Blood Total CO2 27.9, Arterial Blood Oxygen Saturation 81L, Arterial Blood Base Excess 1.9, Scott Test NA, Blood Gas Ventilator Setting YES, Blood Gas Inspired Oxygen 36% 04/05/19 03:25: Hemoglobin 11.7, Sodium Level 140, Potassium Level 3.5L, Chloride Level 106, Carbon Dioxide Level 22, Anion Gap 12, Blood Urea Nitrogen 10, Creatinine 0.71, Estimat Glomerular Filtration Rate > 60, BUN/Creatinine Ratio 14, Glucose Level 153H, Calcium Level 8.6, Magnesium Level 1.6, White Blood Count 8.5, Red Blood Count 4.23L, Hematocrit 36, Mean Corpuscular Volume 86, Mean Corpuscular Hemoglobin 28, Mean Corpuscular Hemoglobin Concent 32, Red Cell Distribution Width 17.3H, Platelet Count 218, Mean Platelet Volume 10.4, Neutrophils (%) (Auto) 79H, Lymphocytes (%) (Auto) 13, Monocytes (%) (Auto) 7, Eosinophils (%) (Auto) 1, Basophils (%) (Auto) 0, Neutrophils # (Auto) 6.8, Lymphocytes # (Auto) 1.1, Monocytes # (Auto) 0.6, Eosinophils # (Auto) 0.0, Basophils # (Auto) 0.0, Phosphorus Level 3.7, Triglycerides Level 108, Cholesterol Level 134, LDL Cholesterol Direct 112, VLDL Cholesterol 22, HDL Cholesterol 19L Microbiology 04/04/19 Mycobacterial Culture - Preliminary, Resulted 04/04/19 Mycobacterial Culture - Preliminary, Resulted 04/04/19 Blood Culture - Preliminary, Resulted No growth Assessment/Plan Assessment/Plan Assessment/Plan Pneumonia with sepsis and right empyema vs pleural effusion right pneumothorax hemoptysis NSTEMI Patient with low cardiac ejection fraction, cardiology following patient intubated right chest tube in place, fluid sent for culture, Clinical Quality Measures DVT/VTE Risk/Contraindication: Risk Factor Score Per Nursin RFS Level Per Nursing on Admit: 4+=Very High Contraindications-Pharm: Other *list below* DOROTEO HORNER DO 04/05/192127: Subjective Subjective/Events-last exam intubated and sedated no air leak on chest tube chest x ray no significant pneumo on right no family at bedside. Objective Exam General Appearance: Other (Intubated and sedated) HEENT: Normal ENT Inspection Neck: Normal Inspection Respiratory: Other (chest tube right chest, equal chest rise, on vent) Cardiovascular: Regular Rate, Rhythm Gastrointestinal: soft Extremity: Pedal Edema Neurologic/Psychiatric: Other (sedated) Skin: Warm/Dry Lymphatic: No Adenopathy Assessment/Plan Assessment/Plan Assessment/Plan Pneumonia with sepsis and right empyema vs pleural effusion right pneumothorax hemoptysis NSTEMI continue with chest tube on at[facility] follow chest x ray medical management tb pending no further surgical intervention at this time will follow Supervisory-Addendum Brief Verification & Attestation Participated in pt care: history, MDM, physical Personally performed: exam, history, MDM, supervision of care Care discussed with: Medical Student Procedures: n/a Results interpretation: Verified all documentation Verification and Attestation of Medical Student E/M Service A medical student performed and documented this service in my presence. I reviewed and verified all information documented by the medical student and made modifications to such information, when appropriate. I personally performed the physical exam and medical decision making. Doroteo Horner, Apr 05, 2019,21:28 [facility] Apr 05, 2019 08:00 DOROTEO HORNER DO Apr 05, 2019 21:28
--- NOTE | 2019-04-05 08:09 | Physical Therapy Progress Note ---
Therapy Progress Note Patient is sedated on ventilator at this time. PT will continue to monitor patient status and resume therapy when indicated. CESAR SHINE PT Apr 05, 2019 08:09
--- NOTE | 2019-04-05 08:16 | Progress Note ---
Subjective Time Seen by a Provider: 08:11 Subjective/Events-last exam Patient's ejection fraction is 10. Patient sedated. Patient blood pressure is low Focused Exam Lactate Level 04/04/19 00:17: Lactic Acid Level 2.62*H 04/04/19 02:20: Lactic Acid Level 1.20 04/04/19 23:29: Lactic Acid Level 1.18 Time of Focused Exam: 04:00 Objective Exam Vital Signs Date Time Temp Pulse Resp B/P (MAP) Pulse Ox O2 Delivery O2 Flow Rate FiO2 04/05/19 07:00 97 04/05/19 06:39 96 21 100 30 04/05/19 06:11 Mechanical Ventilator 30.00 04/05/19 06:00 97 15 93/56 (68) 100 Mechanical Ventilator 36.00 04/05/19 05:27 Mechanical Ventilator 04/05/19 05:05 Mechanical Ventilator 04/05/19 05:00 96 17 91/60 (70) 100 Mechanical Ventilator 36.00 04/05/19 04:02 36.2 04/05/19 04:00 96 19 90/55 (67) 100 Mechanical Ventilator 36.00 04/05/19 03:59 Mechanical Ventilator 36.00 04/05/19 03:25 96 19 100 36 04/05/19 03:00 96 24 91/57 (68) 100 Mechanical Ventilator 36.00 04/05/19 02:27 Mechanical Ventilator 04/05/19 02:00 96 14 94/60 (71) 100 Mechanical Ventilator 36.00 04/05/19 01:00 97 18 97/61 (73) 100 Mechanical Ventilator 36.00 04/05/19 01:00 100 04/05/19 00:07 36.5 Mechanical Ventilator 36.00 04/05/19 00:00 98 16 100/61 (74) 100 Mechanical Ventilator 40.00 04/05/19 00:00 Mechanical Ventilator 40.00 04/04/19 23:50 Mechanical Ventilator 04/04/19 23:40 100 23 100 36 04/04/19 23:00 101 21 105/70 (82) 100 Mechanical Ventilator 40.00 04/04/19 22:36 Mechanical Ventilator 04/04/19 22:32 Mechanical Ventilator 04/04/19 22:00 93 105/70 (82) 100 Mechanical Ventilator 40.00 04/04/19 21:07 Mechanical Ventilator 04/04/19 21:00 93 16 90/64 (73) 100 Mechanical Ventilator 40.00 04/04/19 20:00 36.2 04/04/19 20:00 Mechanical Ventilator 40.00 04/04/19 20:00 93 16 91/61 (71) 100 Mechanical Ventilator 40.00 04/04/19 19:00 95 04/04/19 19:00 95 19 86/56 (66) 100 Mechanical Ventilator 40.00 04/04/19 18:34 96 21 100 40 04/04/19 18:00 92 21 97/72 (80) 100 Mechanical Ventilator 40.00 04/04/19 17:00 93 95/66 (76) 100 Mechanical Ventilator 40.00 04/04/19 16:31 97 04/04/19 16:17 64 04/04/19 16:00 Mechanical Ventilator 40 04/04/19 16:00 92 95/54 (68) 100 Mechanical Ventilator 40.00 04/04/19 15:00 93 12 94/60 (71) 100 Mechanical Ventilator 40.00 04/04/19 14:57 94 28 100 40 04/04/19 14:54 Mechanical Ventilator 40.00 04/04/19 14:52 60 04/04/19 14:48 16 04/04/19 14:00 92 20 94/73 (80) 100 Mechanical Ventilator 80.00 04/04/19 13:00 92 87/51 (63) 100 Mechanical Ventilator 80.00 04/04/19 12:49 64 04/04/19 12:38 96 04/04/19 12:00 Mechanical Ventilator 80.00 04/04/19 12:00 110 13 83/56 (65) 100 Mechanical Ventilator 100.00 04/04/19 12:00 Mechanical Ventilator 80 04/04/19 11:23 Mechanical Ventilator 100.00 04/04/19 11:23 108 22 100 100 04/04/19 11:15 64 04/04/19 11:00 104 21 76/26 (43) 100 Non Rebreather 10.00 04/04/19 11:00 74 04/04/19 11:00 60 84/48 04/04/19 10:00 106 27 116/85 (95) 97 Non Rebreather 10.00 04/04/19 09:00 96 14 129/100 (110) 100 Non Rebreather 10.00 I & O 1/16/20 07:00 Intake Total 8402.5 ml Output Total 5300 ml Balance 3102.5 ml Capillary Refill : Less Than 3 Seconds General Appearance: No Apparent Distress, WD/WN Results Lab Laboratory Tests 04/04/19 23:29 04/05/19 03:25 Laboratory Tests 04/04/19 12:20: Body Fluid Source THORACEN, Body Fluid Color [place], Body Fluid Appearance MKD CLDY, Body Fluid pH 7.3, Body Fluid WBC 4075, Body Fluid RBC 20765, Body Fluid Polynuclear WBCs 64, Body Fluid Mononuclear WBCs 2, Body Fluid Lymphocytes 33, Body Fluid Other Cells 1, Body Fluid Glucose 54, Body Fluid Total Protein 3.6, Body Fluid Lactate Dehydrogenase 887 04/04/19 15:22: Lyme Disease Screen IgG & IgM Ab 0.03, Lyme Antibody Interpretation Negative, [place] Antibody <1:20 04/04/19 18:18: Glucometer 166H 04/04/19 23:07: Glucometer 150H 04/04/19 23:29: Hemoglobin 12.5, Sodium Level 139, Potassium Level 3.7, Chloride Level 104, Carbon Dioxide Level 22, Anion Gap 13, Blood Urea Nitrogen 12, Creatinine 0.73, Estimat Glomerular Filtration Rate > 60, BUN/Creatinine Ratio 16, Glucose Level 152H, Lactic Acid Level 1.18, Calcium Level 8.6, Magnesium Level 1.6, Troponin I 0.510*H, B-Type Natriuretic Peptide 1831.9H, Albumin 3.0L 04/04/19 23:45: Blood Gas Puncture Site R RAD, Blood Gas Patient Temperature 36.5, Arterial Blood pH 7.40, Arterial Blood Partial Pressure CO2 41, Arterial Blood Partial Pressure O2 89, Arterial Blood HCO3 25, Arterial Blood Total CO2 26.7, Arterial Blood Oxygen Saturation 98, Arterial Blood Base Excess 1.1, Scott Test YES-POS, Blood Gas Ventilator Setting YES, Blood Gas Inspired Oxygen 40% 04/05/19 01:50: Blood Gas Puncture Site CENTRAL LINE, Blood Gas Patient Temperature 36.5, Arterial Blood pH 7.39, Arterial Blood Partial Pressure CO2 45, Arterial Blood Partial Pressure O2 54L, Arterial Blood HCO3 27, Arterial Blood Total CO2 27.9, Arterial Blood Oxygen Saturation 81L, Arterial Blood Base Excess 1.9, Scott Test NA, Blood Gas Ventilator Setting YES, Blood Gas Inspired Oxygen 36% 04/05/19 03:25: Hemoglobin 11.7, Sodium Level 140, Potassium Level 3.5L, Chloride Level 106, Carbon Dioxide Level 22, Anion Gap 12, Blood Urea Nitrogen 10, Creatinine 0.71, Estimat Glomerular Filtration Rate > 60, BUN/Creatinine Ratio 14, Glucose Level 153H, Calcium Level 8.6, Magnesium Level 1.6, White Blood Count 8.5, Red Blood Count 4.23L, Hematocrit 36, Mean Corpuscular Volume 86, Mean Corpuscular Hemoglobin 28, Mean Corpuscular Hemoglobin Concent 32, Red Cell Distribution Width 17.3H, Platelet Count 218, Mean Platelet Volume 10.4, Neutrophils (%) (Auto) 79H, Lymphocytes (%) (Auto) 13, Monocytes (%) (Auto) 7, Eosinophils (%) (Auto) 1, Basophils (%) (Auto) 0, Neutrophils # (Auto) 6.8, Lymphocytes # (Auto) 1.1, Monocytes # (Auto) 0.6, Eosinophils # (Auto) 0.0, Basophils # (Auto) 0.0, Phosphorus Level 3.7, Triglycerides Level 108, Cholesterol Level 134, LDL Cholesterol Direct 112, VLDL Cholesterol 22, HDL Cholesterol 19L Microbiology 04/04/19 Mycobacterial Culture - Preliminary, Resulted 04/04/19 Mycobacterial Culture - Preliminary, Resulted 04/04/19 Blood Culture - Preliminary, Resulted No growth Assessment/Plan Assessment/Plan Assess & Plan/Chief Complaint Pneumonia with sepsis. Empyema. CHF. Type II MRI. Respiratory failure. Hypotension Clinical Quality Measures Admission Status Admission Dx Large right pleural effusion. Lymphedema. 10-15 percent right pneumothorax. Sepsis. Non-ST elevated DE. Hemoptysis. DVT/VTE Risk/Contraindication: Risk Factor Score Per Nursin RFS Level Per Nursing on Admit: 4+=Very High Contraindications-Pharm: Other *list below* SUKI HERNADEZ DO Apr 05, 2019 08:16
--- NOTE | 2019-04-05 08:20 | Diagnostic Imaging Report ---
INDICATION: Heart failure. TIME OF EXAM: 3:15 AM Correlation is made with prior chest from one day earlier. FINDINGS: The support lines and catheters remain in place. ET tube has tip above the santosh. There is a right IJ line with tip overlying SVC. The heart remains enlarged. There are central congestive changes. There is some infiltrate or atelectasis right mid and lower lung field as well as a small right effusion. No pneumothorax is seen. Right chest tube remains in place. IMPRESSION: There is some atelectasis or infiltrate in the right base but no significant pneumothorax on this recent study. There is central congestion. Dictated by: Dictated on workstation # [id number]
--- NOTE | 2019-04-05 08:23 | Occ Therapy Progress Note ---
Therapy Progress Note OT order received. Chart reviewed. Pt. currently on sedation and ventilator support. Will continue to monitor and assess when extubated. [id number] RUBEN WOLF OT Apr 05, 2019 08:23
[2019-04-05] MEDS: VANCOMYCIN 1,750 MG/NS 500 ML IVPB IV SCH ×2 (08:27)
[2019-04-05] MEDS: PANTOPRAZOLE 40 MG (PROTONIX) VIAL IV SCH (08:28)
[2019-04-05] MEDS: PIPERACILLIN/TAZOBACTAM (BULK) 4.5 GM in NS (IVPB) 100 ML IV SCH ×3 (08:28→23:25)
[2019-04-05] MEDS: morphine INJ 4 MG/ML 1 ML (VIAL/SYRINGE) IVP PRN ×2 (10:42→12:59)
[2019-04-05] MEDS: DOPamine DRIP 250 ML IV SCH ×2 (12:58→23:21)
--- NOTE | 2019-04-05 14:41 | NUR ---
"Received dietary consult regarding pt's vent status. Est. kcal needs: 2419-4096 kcal | 15-20 kcal/kg Est. Pro needs: 70-94 g Pro | 0.6-0.8 g Pro/kg Note pt currently intubated/sedated. Would recommend the following TF if pt is to remain intubated for more than 3d. Jevity 1.5 at goal rate of 50ml/hr. Begin at 10ml/hr and increase by 10ml q6h as tolerated. Monitor gastric residuals for tolerance. At goal rate, provides 1800 kcal (15 kcal/kg); 76 g Pro (0.6 g Pro/kg); and 912 ml free water. Flush with 75ml H2O q4h for hydration status. With flushes, provides 1362 ml free water. Will continue to follow and reassess as pt needs and status change. Cal Lees, MS, RD, LD"
--- NOTE | 2019-04-05 16:13 | Cardiology Progress Note ---
Subjective Date Seen by Provider: Apr 05, 2019 Time Seen by Provider: 16:11 Subjective/Events-last exam Patient is sedated and intubated Review of Systems General: Other (Sedated and intubated and unable to provide review of systems) Focused Exam Lactate Level 04/04/19 00:17: Lactic Acid Level 2.62*H 04/04/19 02:20: Lactic Acid Level 1.20 04/04/19 23:29: Lactic Acid Level 1.18 Time of Focused Exam: 04:00 Objective-Cardiology Exam Last Set of Vital Signs Vital Signs 04/05/19 04/05/19 04/05/19 04:02 15:28 16:00 Temp 36.2 Pulse 102 Resp 13 B/P (MAP) 107/62 (77) Pulse Ox 99 O2 Delivery Mechanical Ventilator O2 Flow Rate 30.00 FiO2 30 Capillary Refill : Greater Than 3 Seconds I&O Intake and Output 04/04/19 23:59 Intake Total 6532.5 ml Output Total 4475 ml Balance 2057.5 ml Intake Oral 0 ml IV Total 6532.5 ml Output Urine Total 2625 ml Chest Tube Drainage Total 1850 ml # Voids 2 Daily Weight Change Yes, Unsure # of lbs General: Other (Sedated and intubated) HEENT: Atraumatic Neck: Supple Lungs: Other (Rhonchi) Heart: Normal S1, Normal S2 Abdomen: Normal Bowel Sounds Extremities: Other (Peripheral edema) Neuro: Other (Sedated and intubated) Psych/Mental Status: Other (Sedated and intubated) Results Lab Laboratory Tests 04/04/19 23:29 04/05/19 03:25 A/P-Cardiology Admission Diagnosis Sepsis Congestive heart failure Type II [place] Acute respiratory failure Assessment/Plan Acute respiratory failure, acute congestive heart failure left ventricular systolic dysfunction, receiving diuretics, on dopamine and dobutamine. Continue to monitor Respiratory isolation, waiting cultures Sepsis, receiving antibiotics. Managed by primary care team. Congestive heart failure, acute left ventricular systolic dysfunction with ejec tion fraction 10 percent, unknown etiology, probably ischemic in nature, planning to proceed with cardiac catheterization, we will start her on dobutamine to support her blood pressure for now and I am using diuretic cautiously with close monitoring to her blood pressure. Cannot tolerate beta blockers, MANAN inhibitor and/or ARB due to hypotension Mild elevation in troponin, could be secondary to heart failure or underlying coronary artery disease planning to proceed with cardiac catheterization. 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
[2019-04-05] MEDS ORDERED: TROUGH ORDER-PHARMACY XX ONE (19:00)
--- NOTE | 2019-04-05 20:11 | OPERATIVE REPORT ---
DATE OF SERVICE: 04/04/2019 PREOPERATIVE DIAGNOSES: Right pleural effusion and right pneumothorax. POSTOPERATIVE DIAGNOSES: Right pleural effusion and right pneumothorax. PROCEDURE: Right thoracostomy tube placement. SURGEON: Doroteo Horner DO ANESTHESIA: Local anesthetic. ESTIMATED BLOOD LOSS: Minimal. COMPLICATIONS: None. INDICATIONS: The patient is a 54-year-old female with large pleural effusion and pneumothorax of the right chest. Question if there is empyema. DESCRIPTION OF PROCEDURE: The right chest was prepped and draped in sterile fashion. Timeout was performed. Local anesthetic was infiltrated into the right chest for approximately the 5th rib interspace and anterior axillary line, a 15 blade scalpel was used to make a skin incision and a Pean was used to dissect through the subcutaneous tissues above the rib. Once the chest was encountered, the finger was inserted and a large gush of fluid erupted. A 28-Latvian chest tube was inserted and a 0 silk was placed in a U-shaped suture closing the incision and secured to the chest tube. This was then secured. The area was washed and dried and sterile bandage was applied. The patient tolerated the procedure well. Chest x-ray is pending. Job ID: [id number] DocumentID: [id number] Dictated Date: 04/05/2019 13:29:08 Embedded Software Development Engineer Date: 04/05/2019 20:10:56 Dictated By: DOROTEO HORNER DO
[2019-04-06] VITALS (15 sets, daily range): BP systolic 95–125; BP diastolic 56–81
[2019-04-06] MEDS: PROPOFOL DRIP (ICU) 100 ML IV SCH ×4 (00:27→08:58)
[2019-04-06] MEDS: NOREPINEPHRINE 4 MG/250 ML NS 250 ML IV SCH ×2 (00:28→08:09)
[2019-04-06] MEDS: LACTATED RINGERS 1,000 ML IV SCH (00:28)
[2019-04-06] MEDS: RT-ALBUTEROL/IPRATROPIUM 3 ML (DUONEB) VIAL INH SCH ×3 (02:13→11:52)
[2019-04-06] MEDS: DOBUTamine DRIP 250 ML IV SCH (03:12)
[2019-04-06 03:32] LABS: ABG BASE EXCESS 0.5 MMOL/L (-2.5-2.5); ABG OXYGEN SATURATION 93 % (94-100); ABG PCO2 38 MMHG (35-45); ABG PH 7.42 (7.37-7.43); ABG PO2 67 MMHG (79-93); ABG TCO2 25.6 MMOL/L (21.0-31.0); BASOPHILS % (AUTO) 0 % (0-10); EOSINOPHILS # (AUTO) 0.1 10^3/uL (0.0-0.3); EOSINOPHILS % (AUTO) 2 % (0-10); HEMATOCRIT 37 % (35-52); HEMOGLOBIN 11.8 G/DL (11.5-16.0); LYMPHOCYTES # (AUTO) 1.1 X 10^3 (1.0-4.0); LYMPHOCYTES % (AUTO) 14 % (12-44); MEAN CORPUSCULAR HEMOGLOBIN 28 PG (25-34); MEAN CORPUSCULAR HGB CONC 32 G/DL (32-36); MEAN CORPUSCULAR VOLUME 86 FL (80-99); MEAN PLATELET VOLUME 9.6 FL (7.4-10.4); MONOCYTES # (AUTO) 0.7 X 10^3 (0.0-1.0); MONOCYTES % (AUTO) 10 % (0-12); NEUTROPHILS # (AUTO) 5.4 X 10^3 (1.8-7.8); NEUTROPHILS % (AUTO) 74 % (42-75); PLATELET COUNT 206 10^3/uL (130-400); RED CELL DISTRIBUTION WIDTH 17.2 % (10.0-14.5); WHITE BLOOD COUNT 7.4 10^3/uL (4.3-11.0)
[2019-04-06 03:39] LABS: ALLENS TEST POSITIVE; INSPIRED O2 25%; PATIENT TEMP 36.8; VENTILATOR YES
[2019-04-06 03:48] LABS: BUN/CREATININE RATIO 9; CALCIUM 8.1 MG/DL (8.5-10.1); CARBON DIOXIDE 20 MMOL/L (21-32); CHLORIDE 108 MMOL/L (98-107); CREATININE SERUM 0.67 MG/DL (0.60-1.30); GFR ESTIMATED > 60; GLUCOSE 147 MG/DL (70-105); MAGNESIUM 1.9 MG/DL (1.6-2.4); PHOSPHORUS 3.4 MG/DL (2.3-4.7); SODIUM 138 MMOL/L (135-145); TRIGLYCERIDES 105 MG/DL (<150)
[2019-04-06] MEDS: DexMEDEtomidine 250 ML DRIP 250 ML IV SCH (05:19)
[2019-04-06] MEDS ORDERED: ANIDULAFUNGIN INJECTION 200 MG in NS (IVPB) 250 ML IV ONE (05:30)
--- NOTE | 2019-04-06 05:31 | Pulmonary Progress Note ---
Subjective Time Seen by a Provider: 05:29 Subjective/Events-last exam Pt is sedated on vent. AFB is negative in sputum. Will D/C isolation. Sepsis Event Evaluation Height, Weight, BMI Height: 6'1.00" Weight: 230lbs. oz. 104.871045iy; 32.28 BMI Method:Stated Focused Exam Lactate Level 04/04/19 00:17: Lactic Acid Level 2.62*H 04/04/19 02:20: Lactic Acid Level 1.20 04/04/19 23:29: Lactic Acid Level 1.18 Time of Focused Exam: 04:00 Exam Exam Vital Signs Date Time Temp Pulse Resp B/P (MAP) Pulse Ox O2 Delivery O2 Flow Rate FiO2 04/06/19 04:00 101 19 99/62 (74) 91 Mechanical Ventilator 25.00 04/06/19 03:12 99/60 04/06/19 03:11 99/60 04/06/19 03:00 101 15 99/60 (73) 92 Mechanical Ventilator 25.00 04/06/19 02:00 101 16 102/60 (74) 93 Mechanical Ventilator 25.00 04/06/19 01:00 101 14 105/62 (76) 93 Mechanical Ventilator 25.00 04/06/19 01:00 102 04/06/19 00:27 108/62 04/06/19 00:00 Mechanical Ventilator 30.00 04/06/19 00:00 36.8 04/06/19 00:00 102 13 108/64 (79) 93 Mechanical Ventilator 25.00 04/05/19 23:21 100/62 04/05/19 23:00 101 14 106/62 (77) 93 Mechanical Ventilator 25.00 04/05/19 22:00 100 15 105/62 (76) 93 Mechanical Ventilator 25.00 04/05/19 21:35 102/64 04/05/19 21:00 103 13 109/62 (78) 99 Mechanical Ventilator 25.00 04/05/19 20:27 37.7 04/05/19 20:23 108/62 04/05/19 20:00 Mechanical Ventilator 30.00 04/05/19 20:00 101 14 107/60 (76) 100 Mechanical Ventilator 25.00 04/05/19 19:17 Mechanical Ventilator 25.00 04/05/19 19:08 100 20 100 25 04/05/19 19:00 101 04/05/19 19:00 101 13 106/60 (75) 100 Mechanical Ventilator 30.00 04/05/19 18:35 72 04/05/19 18:00 101 12 107/61 (76) 100 Mechanical Ventilator 30.00 04/05/19 17:00 101 13 107/61 (76) 100 Mechanical Ventilator 30.00 04/05/19 16:25 37.4 04/05/19 16:00 102 13 107/62 (77) 99 Mechanical Ventilator 30.00 04/05/19 16:00 Mechanical Ventilator 30.00 04/05/19 15:42 110/62 04/05/19 15:28 101 21 98 30 04/05/19 15:00 101 13 109/62 (78) 99 Mechanical Ventilator 30.00 04/05/19 14:00 101 14 107/62 (77) 99 Mechanical Ventilator 30.00 04/05/19 13:00 96 13 111/64 (80) 100 Mechanical Ventilator 30.00 04/05/19 12:58 112/64 04/05/19 12:58 112/64 04/05/19 12:16 96 04/05/19 12:00 96 12 110/62 (78) 100 Mechanical Ventilator 30.00 04/05/19 12:00 Mechanical Ventilator 30.00 04/05/19 11:01 112/61 04/05/19 11:00 96 14 112/61 (78) 100 Mechanical Ventilator 30.00 04/05/19 10:21 95 20 100 30 04/05/19 10:00 96 14 114/61 (78) 100 Mechanical Ventilator 30.00 04/05/19 09:00 101 16 108/63 (78) 100 Mechanical Ventilator 30.00 04/05/19 08:18 115/61 04/05/19 08:00 Mechanical Ventilator 30.00 04/05/19 08:00 96 113/59 (77) 100 Mechanical Ventilator 30.00 04/05/19 07:00 97 20 98/63 (75) 100 Mechanical Ventilator 30.00 04/05/19 07:00 97 04/05/19 06:39 96 21 100 30 04/05/19 06:11 Mechanical Ventilator 30.00 04/05/19 06:00 97 15 93/56 (68) 100 Mechanical Ventilator 36.00 I & O 04/06/19 07:00 Intake Total 2237.5 ml Output Total 2360 ml Balance -122.5 ml Height & Weight Height: 6'1.00" Weight: 230lbs. oz. 104.765439et; 32.28 BMI Method:Stated General Appearance: Other (Intubated and sedated) HEENT: Normal ENT Inspection Neck: Normal Inspection Respiratory: Decreased Breath Sounds, Other (chest tube right chest, equal chest rise, on vent) Cardiovascular: Regular Rate, Rhythm Capillary Refill: Less Than 3 Seconds Peripheral Pulses: 2+ Radial Pulses (R), 2+ Radial Pulses (L) Gastrointestinal: soft Extremity: Pedal Edema Neurologic/Psychiatric: Other (sedated) Skin: Warm/Dry Lymphatic: No Adenopathy Results Lab Laboratory Tests 04/04/19 05:40 04/04/19 23:29 04/05/19 03:25 04/06/19 03:00 Assessment/Plan Assessment/Plan Pneumonia with sepsis with parapneumonic effusion r/o emphyema -echocardiogram EF 10% - Zosyn Vancomycin add Eraxis -Cultures pending -Garcia cultures Right small PTX s/p chest tube -Pt may need Decortication with pleurodesis however not currently stable enough for surgery at this time -Chest tube in place -Pleural fluid sent for cytology -Repeat CT scan of chest with contrast today if pt does not go to 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
[2019-04-06] MEDS: VASOPRESSIN INJECTION 20 UNIT in NORMAL SALINE 100 ML IV SCH (06:24)
--- NOTE | 2019-04-06 06:55 | Progress Note ---
Subjective Time Seen by a Provider: 06:50 Subjective/Events-last exam Patient on vent. AFB negative. Patient to have heart catheter today. Patient resting comfortably. Right side of lung decreased sounds compared to left Focused Exam Lactate Level 04/04/19 00:17: Lactic Acid Level 2.62*H 04/04/19 02:20: Lactic Acid Level 1.20 04/04/19 23:29: Lactic Acid Level 1.18 Time of Focused Exam: 04:00 Objective Exam Vital Signs Date Time Temp Pulse Resp B/P (MAP) Pulse Ox O2 Delivery O2 Flow Rate FiO2 04/06/19 06:19 104/66 04/06/19 06:00 101 19 102/61 (75) 92 Mechanical Ventilator 25.00 04/06/19 05:00 99 17 100/61 (74) 92 Mechanical Ventilator 25.00 04/06/19 04:00 101 19 99/62 (74) 91 Mechanical Ventilator 25.00 04/06/19 04:00 Mechanical Ventilator 30.00 04/06/19 03:12 99/60 04/06/19 03:11 99/60 04/06/19 03:00 101 15 99/60 (73) 92 Mechanical Ventilator 25.00 04/06/19 02:13 100 24 100 21 04/06/19 02:00 101 16 102/60 (74) 93 Mechanical Ventilator 25.00 04/06/19 01:00 101 14 105/62 (76) 93 Mechanical Ventilator 25.00 04/06/19 01:00 102 04/06/19 00:27 108/62 04/06/19 00:00 Mechanical Ventilator 30.00 04/06/19 00:00 36.8 04/06/19 00:00 102 13 108/64 (79) 93 Mechanical Ventilator 25.00 04/05/19 23:21 100/62 04/05/19 23:00 101 14 106/62 (77) 93 Mechanical Ventilator 25.00 04/05/19 22:00 100 15 105/62 (76) 93 Mechanical Ventilator 25.00 04/05/19 21:35 102/64 04/05/19 21:30 100 24 100 21 04/05/19 21:00 103 13 109/62 (78) 99 Mechanical Ventilator 25.00 04/05/19 20:27 37.7 04/05/19 20:23 108/62 04/05/19 20:00 Mechanical Ventilator 30.00 04/05/19 20:00 101 14 107/60 (76) 100 Mechanical Ventilator 25.00 04/05/19 19:17 Mechanical Ventilator 25.00 04/05/19 19:08 100 20 100 25 04/05/19 19:00 101 04/05/19 19:00 101 13 106/60 (75) 100 Mechanical Ventilator 30.00 04/05/19 18:35 72 04/05/19 18:00 101 12 107/61 (76) 100 Mechanical Ventilator 30.00 04/05/19 17:00 101 13 107/61 (76) 100 Mechanical Ventilator 30.00 04/05/19 16:25 37.4 04/05/19 16:00 102 13 107/62 (77) 99 Mechanical Ventilator 30.00 04/05/19 16:00 Mechanical Ventilator 30.00 04/05/19 15:42 110/62 04/05/19 15:28 101 21 98 30 04/05/19 15:00 101 13 109/62 (78) 99 Mechanical Ventilator 30.00 04/05/19 14:00 101 14 107/62 (77) 99 Mechanical Ventilator 30.00 04/05/19 13:00 96 13 111/64 (80) 100 Mechanical Ventilator 30.00 04/05/19 12:58 112/64 04/05/19 12:58 112/64 04/05/19 12:16 96 04/05/19 12:00 96 12 110/62 (78) 100 Mechanical Ventilator 30.00 04/05/19 12:00 Mechanical Ventilator 30.00 04/05/19 11:01 112/61 04/05/19 11:00 96 14 112/61 (78) 100 Mechanical Ventilator 30.00 04/05/19 10:21 95 20 100 30 04/05/19 10:00 96 14 114/61 (78) 100 Mechanical Ventilator 30.00 04/05/19 09:00 101 16 108/63 (78) 100 Mechanical Ventilator 30.00 04/05/19 08:18 115/61 04/05/19 08:00 Mechanical Ventilator 30.00 04/05/19 08:00 96 113/59 (77) 100 Mechanical Ventilator 30.00 04/05/19 07:00 97 20 98/63 (75) 100 Mechanical Ventilator 30.00 04/05/19 07:00 97 I & O 04/06/19 07:00 Intake Total 2237.5 ml Output Total 2800 ml Balance -562.5 ml Capillary Refill : Less Than 3 Seconds General Appearance: No Apparent Distress, WD/WN Neck: Normal Inspection Respiratory: No Accessory Muscle Use, No Respiratory Distress, Other (Decreased breath sounds on the right, sounds like bird) Cardiovascular: Regular Rate, Rhythm, No Murmur Gastrointestinal: non tender, soft Results Lab Laboratory Tests 04/06/19 03:00 Laboratory Tests 04/05/19 12:23: Glucometer 135H 04/05/19 17:41: Glucometer 137H 04/05/19 18:10: Vancomycin Level Trough 22.5H 04/05/19 20:04: Glucometer 146H 04/06/19 00:19: Glucometer 154H 04/06/19 03:00: White Blood Count 7.4, Red Blood Count 4.28L, Hemoglobin 11.8, Hematocrit 37, Mean Corpuscular Volume 86, Mean Corpuscular Hemoglobin 28, Mean Corpuscular Hemoglobin Concent 32, Red Cell Distribution Width 17.2H, Platelet Count 206, Mean Platelet Volume 9.6, Neutrophils (%) (Auto) 74, Lymphocytes (%) (Auto) 14, Monocytes (%) (Auto) 10, Eosinophils (%) (Auto) 2, Basophils (%) (Auto) 0, Neutrophils # (Auto) 5.4, Lymphocytes # (Auto) 1.1, Monocytes # (Auto) 0.7, Eosinophils # (Auto) 0.1, Basophils # (Auto) 0.0, Blood Gas Puncture Site LEFT ARTLINE, Blood Gas Patient Temperature 36.8, Arterial Blood pH 7.42, Arterial Blood Partial Pressure CO2 38, Arterial Blood Partial Pressure O2 67L, Arterial Blood HCO3 24, Arterial Blood Total CO2 25.6, Arterial Blood Oxygen Saturation 93L, Arterial Blood Base Excess 0.5, Scott Test POSITIVE, Blood Gas Ventilator S etting YES, Blood Gas Inspired Oxygen 25%, Sodium Level 138, Potassium Level 4.0, Chloride Level 108H, Carbon Dioxide Level 20L, Anion Gap 10, Blood Urea Nitrogen 6L, Creatinine 0.67, Estimat Glomerular Filtration Rate > 60, BUN/Creatinine Ratio 9, Glucose Level 147H, Calcium Level 8.1L, Phosphorus Level 3.4, Magnesium Level 1.9, Triglycerides Level 105 Microbiology 04/04/19 Mycobacterial Culture - Preliminary, Resulted 04/04/19 Mycobacterial Culture - Preliminary, Resulted 04/04/19 Urine Culture - Final, Complete 3 or more isolates 04/04/19 Blood Culture - Preliminary, Resulted No growth Assessment/Plan Assessment/Plan Assess & Plan/Chief Complaint Pneumonia with sepsis. Empyema. CHF. Type II MRI. Respiratory failure. Hypotension. . 04/06/2019. Pneumonia. Type II MR area Respiratory failure. Hypotension. Sepsis. Clinical Quality Measures Admission Status Admission Dx Large right pleural effusion. Lymphedema. 10-15 percent right pneumothorax. Sepsis. Non-ST elevated MS. Hemoptysis. DVT/VTE Risk/Contraindication: Risk Factor Score Per Nursin RFS Level Per Nursing on Admit: 4+=Very High Contraindications-Pharm: Other *list below* SUKI HERNADEZ DO Apr 06, 2019 06:55
--- NOTE | 2019-04-06 07:04 | Diagnostic Imaging Report ---
Indication: Sepsis. Portable chest 3:30 AM There is an ET tube projects over the trachea. NG tube projects over the stomach. Right IJ central line tip projects over the SVC. There is cardiomegaly. Pulmonary vascularity is normal. There appears be a right subpulmonic effusion. There is possibly a pericardial effusion. Impression: Marked cardiomegaly without appreciable pulmonary venous hypertension. Right pleural effusion. Dictated by: Dictated on workstation # [id number]
--- NOTE | 2019-04-06 07:44 | Progress Note - Surgery ---
CAIN MARTINEZ [facility] 04/06/19 0744: Subjective Date Seen by a Provider: Apr 06, 2019 Time Seen by a Provider: 07:00 Subjective/Events-last exam Pt intubated and sedated unable to obtain ROS. Focused Exam Lactate Level 04/04/19 00:17: Lactic Acid Level 2.62*H 04/04/19 02:20: Lactic Acid Level 1.20 04/04/19 23:29: Lactic Acid Level 1.18 Time of Focused Exam: 04:00 Objective Exam Vital Signs Date Time Temp Pulse Resp B/P (MAP) Pulse Ox O2 Delivery O2 Flow Rate FiO2 04/06/19 06:46 100 19 90 21 04/06/19 06:19 104/66 04/06/19 06:00 101 19 102/61 (75) 92 Mechanical Ventilator 25.00 04/06/19 05:00 99 17 100/61 (74) 92 Mechanical Ventilator 25.00 04/06/19 04:00 101 19 99/62 (74) 91 Mechanical Ventilator 25.00 04/06/19 04:00 Mechanical Ventilator 30.00 04/06/19 03:12 99/60 04/06/19 03:11 99/60 04/06/19 03:00 101 15 99/60 (73) 92 Mechanical Ventilator 25.00 04/06/19 02:13 100 24 100 21 04/06/19 02:00 101 16 102/60 (74) 93 Mechanical Ventilator 25.00 04/06/19 01:00 101 14 105/62 (76) 93 Mechanical Ventilator 25.00 04/06/19 01:00 102 04/06/19 00:27 108/62 04/06/19 00:00 Mechanical Ventilator 30.00 04/06/19 00:00 36.8 04/06/19 00:00 102 13 108/64 (79) 93 Mechanical Ventilator 25.00 04/05/19 23:21 100/62 04/05/19 23:00 101 14 106/62 (77) 93 Mechanical Ventilator 25.00 04/05/19 22:00 100 15 105/62 (76) 93 Mechanical Ventilator 25.00 04/05/19 21:35 102/64 04/05/19 21:30 100 24 100 21 04/05/19 21:00 103 13 109/62 (78) 99 Mechanical Ventilator 25.00 04/05/19 20:27 37.7 04/05/19 20:23 108/62 04/05/19 20:00 Mechanical Ventilator 30.00 04/05/19 20:00 101 14 107/60 (76) 100 Mechanical Ventilator 25.00 04/05/19 19:17 Mechanical Ventilator 25.00 04/05/19 19:08 100 20 100 25 04/05/19 19:00 101 04/05/19 19:00 101 13 106/60 (75) 100 Mechanical Ventilator 30.00 04/05/19 18:35 72 04/05/19 18:00 101 12 107/61 (76) 100 Mechanical Ventilator 30.00 04/05/19 17:00 101 13 107/61 (76) 100 Mechanical Ventilator 30.00 04/05/19 16:25 37.4 04/05/19 16:00 102 13 107/62 (77) 99 Mechanical Ventilator 30.00 04/05/19 16:00 Mechanical Ventilator 30.00 04/05/19 15:42 110/62 04/05/19 15:28 101 21 98 30 04/05/19 15:00 101 13 109/62 (78) 99 Mechanical Ventilator 30.00 04/05/19 14:00 101 14 107/62 (77) 99 Mechanical Ventilator 30.00 04/05/19 13:00 96 13 111/64 (80) 100 Mechanical Ventilator 30.00 04/05/19 12:58 112/64 04/05/19 12:58 112/64 04/05/19 12:16 96 04/05/19 12:00 96 12 110/62 (78) 100 Mechanical Ventilator 30.00 04/05/19 12:00 Mechanical Ventilator 30.00 04/05/19 11:01 112/61 04/05/19 11:00 96 14 112/61 (78) 100 Mechanical Ventilator 30.00 04/05/19 10:21 95 20 100 30 04/05/19 10:00 96 14 114/61 (78) 100 Mechanical Ventilator 30.00 04/05/19 09:00 101 16 108/63 (78) 100 Mechanical Ventilator 30.00 04/05/19 08:18 115/61 04/05/19 08:00 Mechanical Ventilator 30.00 04/05/19 08:00 96 113/59 (77) 100 Mechanical Ventilator 30.00 I & O 1/17/20 07:00 Intake Total 2237.5 ml Output Total 2800 ml Balance -562.5 ml Capillary Refill : Less Than 3 Seconds General Appearance: No Apparent Distress, WD/WN, Other (Intubated and sedated) Neck: Normal Inspection Respiratory: No Accessory Muscle Use, No Respiratory Distress, Other (Decreased breath sounds on the right, sounds like bird) Cardiovascular: Regular Rate, Rhythm; No No Edema (Minor pedal edema); No Murmur, Normal Peripheral Pulses Peripheral Pulses: 2+ Radial Pulses (R), 2+ Radial Pulses (L) Gastrointestinal: non tender, soft Extremity: Normal Inspection, Pedal Edema, Swelling Neurologic/Psychiatric: Other (Sedated) Skin: Normal Color, Warm/Dry Lymphatic: No Adenopathy Results Lab Laboratory Tests 04/05/19 12:23: Glucometer 135H 04/05/19 17:41: Glucometer 137H 04/05/19 18:10: Vancomycin Level Trough 22.5H 04/05/19 20:04: Glucometer 146H 04/06/19 00:19: Glucometer 154H 04/06/19 03:00: White Blood Count 7.4, Red Blood Count 4.28L, Hemoglobin 11.8, Hematocrit 37, Mean Corpuscular Volume 86, Mean Corpuscular Hemoglobin 28, Mean Corpuscular Hemoglobin Concent 32, Red Cell Distribution Width 17.2H, Platelet Count 206, Mean Platelet Volume 9.6, Neutrophils (%) (Auto) 74, Lymphocytes (%) (Auto) 14, Monocytes (%) (Auto) 10, Eosinophils (%) (Auto) 2, Basophils (%) (Auto) 0, Neutrophils # (Auto) 5.4, Lymphocytes # (Auto) 1.1, Monocytes # (Auto) 0.7, Eosinophils # (Auto) 0.1, Basophils # (Auto) 0.0, Blood Gas Puncture Site LEFT ARTLINE, Blood Gas Patient Temperature 36.8, Arterial Blood pH 7.42, Arterial Blood Partial Pressure CO2 38, Arterial Blood Partial Pressure O2 67L, Arterial Blood HCO3 24, Arterial Blood Total CO2 25.6, Arterial Blood Oxygen Saturation 93L, Arterial Blood Base Excess 0.5, Scott Test POSITIVE, Blood Gas Ventilator Setting YES, Blood Gas Inspired Oxygen 25%, Sodium Level 138, Potassium Level 4.0, Chloride Level 108H, Carbon Dioxide Level 20L, Anion Gap 10, Blood Urea Nitrogen 6L, Creatinine 0.67, Estimat Glomerular Filtration Rate > 60, BUN/Creatinine Ratio 9, Glucose Level 147H, Calcium Level 8.1L, Phosphorus Level 3.4, Magnesium Level 1.9, Triglycerides Level 105 04/06/19 06:13: Glucometer 135H Microbiology 04/04/19 Mycobacterial Culture - Preliminary, Resulted 04/04/19 Mycobacterial Culture - Preliminary, Resulted 04/04/19 Urine Culture - Final, Complete 3 or more isolates 04/04/19 Blood Culture - Preliminary, Resulted No growth Assessment/Plan Assessment/Plan Assessment/Plan Pneumonia. with pleural effusion- chest tube in place draining small amount of fluid Type II MR area- cardiology consulted and planning cardiac catheterization Respiratory failure. Hypotension. Sepsis. Clinical Quality Measures DVT/VTE Risk/Contraindication: Risk Factor Score Per Nursin RFS Level Per Nursing on Admit: 4+=Very High Contraindications-Pharm: Other *list below* STANLEY HORNER DO 04/06/19 1639: Subjective Subjective/Events-last exam Intubated and sedated. On pressors. Chest tube right chest no air leak. For heart cath today. No family at bedside. Objective Exam General Appearance: Other (Intubated and sedated) HEENT: PERRL/EOMI Neck: Normal Inspection Respiratory: Other (equal chest rise) Cardiovascular: Regular Rate, Rhythm Gastrointestinal: soft Extremity: Pedal Edema Neurologic/Psychiatric: Other (Sedated) Skin: Normal Color, Warm/Dry Assessment/Plan Assessment/Plan Assessment/Plan Pneumonia. with pleural effusion/pneumothora- chest tube in place draining small amount of fluid no air leak Type II MR area- cardiology planning cardiac catheterization Respiratory failure intubated Hypotension- on pressors Sepsis. await results of cardiac cath repeat chest ct soon to further evaluate chest x ray showing right pleural effusion decreased will follow Supervisory-Addendum Brief Verification & Attestation Participated in pt care: history, MDM, physical Personally performed: exam, history, MDM, supervision of care Care discussed with: Medical Student Procedures: n/a Results interpretation: Verified all documentation Verification and Attestation of Medical Student E/M Service A medical student performed and documented this service in my presence. I reviewed and verified all information documented by the medical student and made modifications to such information, when appropriate. I personally performed the physical exam and medical decision making. Stanley Horner, Apr 06, 2019,16:50 CAIN MARTINEZ [facility] Apr 06, 2019 07:44 STANLEY HORNER DO Apr 06, 2019 16:39
[2019-04-06] MEDS ORDERED: VANCOMYCIN 1,750 MG/NS 500 ML IVPB IV SCH ×2 (08:00)
--- NOTE | 2019-04-06 08:04 | Physical Therapy Progress Note ---
Therapy Progress Note Patient remains sedated and intubated. Per report, patient to have heart cath on this date. PT will continue to monitor patient status. CESAR SHINE PT Apr 06, 2019 08:04
[2019-04-06] MEDS: PIPERACILLIN/TAZOBACTAM (BULK) 4.5 GM in NS (IVPB) 100 ML IV SCH (08:09)
[2019-04-06] MEDS: PANTOPRAZOLE 40 MG (PROTONIX) VIAL IV SCH (08:10)
[2019-04-06] MEDS ORDERED: MEROPENEM 500 MG/SWFI 10 ML IV PUSH IV SCH ×2 (08:30)
[2019-04-06] MEDS ORDERED: NS IV 1000 ML 2,000 ML ONE (08:47)
[2019-04-06] MEDS ORDERED: LIDOCAINE 1% INJ 20 ML 20 ML VIAL ONE (08:47)
[2019-04-06] MEDS ORDERED: HEParin 1000 UNIT/ML (10ML VIAL) FOR BOLUS ONE (08:47)
[2019-04-06] MEDS ORDERED: MIDAZOLAM 5 MG/5 ML (VERSED) VIAL ONE (08:48)
[2019-04-06] MEDS ORDERED: fentaNYL INJECTION 100 MCG/2 ML AMP ONE (08:48)
--- NOTE | 2019-04-06 08:55 | Cardiology Progress Note ---
Subjective Date Seen by Provider: Apr 06, 2019 Time Seen by Provider: 08:52 Subjective/Events-last exam Patient is sedated and intubated, off isolation Review of Systems General: Other (Unable to provide review of systems) Focused Exam Lactate Level 04/04/19 00:17: Lactic Acid Level 2.62*H 04/04/19 02:20: Lactic Acid Level 1.20 04/04/19 23:29: Lactic Acid Level 1.18 Time of Focused Exam: 04:00 Objective-Cardiology Exam Last Set of Vital Signs Vital Signs 04/06/19 04/06/19 04/06/19 00:00 06:46 08:00 Temp 36.8 Pulse 100 Resp 16 B/P (MAP) 95/56 (69) Pulse Ox 98 O2 Delivery Mechanical Ventilator O2 Flow Rate 25.00 FiO2 21 Capillary Refill : Less Than 3 Seconds I&O Intake and Output 04/06/19 00:00 Intake Total 4207.5 ml Output Total 3355 ml Balance 852.5 ml Intake Oral 0 ml IV Total 4207.5 ml Output Urine Total 3025 ml Chest Tube Drainage Total 330 ml General: Severe Distress, Other (Sedated and intubated) HEENT: Atraumatic Neck: Supple Lungs: Other (Rhonchi) Heart: Normal S1, Normal S2, Other (Borderline tachycardia) Abdomen: Normal Bowel Sounds Extremities: Other (Minimal edema) Neuro: Other (Sedated and intubated) Psych/Mental Status: Other (Sedated and intubated) Results Lab Laboratory Tests 04/06/19 03:00 A/P-Cardiology Admission Diagnosis Sepsis Congestive heart failure Type II ND Acute respiratory failure Assessment/Plan Acute respiratory failure, acute congestive heart failure left ventricular systolic dysfunction, diuretics on hold due to hypotension, on dopamine and dobutamine Hypotensive shock, maintained on pressors, mixed picture of sepsis and cardiogenic shock Sepsis, receiving antibiotics. Managed by primary care team. Congestive heart failure, acute left ventricular systolic dysfunction with ej ection fraction 10 percent, unknown etiology, probably ischemic in nature, planning to proceed with cardiac catheterization, we will start her on dobutamine to support her blood pressure for now and I am using diuretic cautiously with close monitoring to her blood pressure. Cannot tolerate beta blockers, MANAN inhibitor and/or ARB due to hypotension Mild elevation in troponin, could be secondary to heart failure or underlying coronary artery disease planning to proceed with cardiac catheterization. 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
--- NOTE | 2019-04-06 08:56 | Cardiac Procedure Note-CS/ASA ---
Pre-Procedure Note Pre-Op Procedure Note H&P Reviewed The H&P was reviewed, patient examined and no changes noted. Date H&P Reviewed: Apr 06, 2019 Time H&P Reviewed: 08:55 Conscious Sedation Pre-Proced Time 08:55 ASA Score 3 For ASA 3 and 4: Consider anesthesia and medical clearance. Also, for patients with a history of failed moderate sedation consider anesthesia. Airway Lungs Heart ASA score ASA 1: a normal healthy patient ASA 2: a patient with a mild systemic disease (mid diabetes, controlled hypertension, obesity ASA 3: a patient with a severe systemic disease that limits activity (angina, COPD, prior Myocardial infarction) x ASA 4: a patient with an incapacitating disease that is a constant threat to life (CHF, renal failure) ASA 5: a moribund patient not expected to survive 24 hrs. (ruptured aneurysm) ASA 6: a declared brain- patient whose organs are being harvested. For emergent operations, add the letter E after the classification Mallampati Classification Grade 3 Sedation Plan Analgesia, Amnesia, Plan communicated to team members, Discussed options with patient/fam, Discussed risks with patient/fam The patient is an appropriate candidate to undergo the planned procedure, sedation, and anesthesia. She is in cardiogenic shock, sedated and intubated The patient immediately re-assessed prior to indication. HIEU ADDISON MD Apr 06, 2019 08:56
[2019-04-06] MEDS: DOPamine DRIP 250 ML IV SCH (08:58)
[2019-04-06] MEDS ORDERED: ENOXAPARIN 40 MG/0.4 ML (LOVENOX) SYR SC SCH (09:00)
--- NOTE | 2019-04-06 10:15 | NUR ---
[facility]IP [facility] STAFF UP TO UNIT, TAKING PT DOWN TO [facility]IP [facility]ER. RT AT BEDSIDE.
[2019-04-06] MEDS ORDERED: DOBUTamine DRIP 250 ML IV ONE (10:21)
[2019-04-06] MEDS ORDERED: NS IV 1000 ML 1,000 ML ONE (10:41)
--- NOTE | 2019-04-06 10:43 | Occ Therapy Progress Note ---
Therapy Progress Note Pt remains intubated and sedated. Will continue to monitor and initiate therapy when pt able to actively participate. LANI ABEBE OT Apr 06, 2019 10:43
[2019-04-06] MEDS ORDERED: HEParin DRIP 25000 UNIT/500ML 500 ML IV ONE (11:07)
--- NOTE | 2019-04-06 11:18 | Cardiac Cath Report ---
Cardiac Cath Report Physician (s)/Supervisor Molding (s) Physician HIEU ADDISON MD Pre-Procedure Diagnosis Pre-Procedure Diagnosis: cardiogenic shock Post-Procedure Note Procedure Start Date: Apr 06, 2019 Name of Procedure: Left heart catheterization Left ventriculogram Aortic arch angiogram Intra-aortic balloon pump Findings/Procedure Note PROCEDURE NOTE: 55-year-old lady admitted with respiratory failure and hypotensive shock, has severe cardiomyopathy, mild elevation in troponin, intubated, brought 4 cardiac catheterization possible PTCA. After explaining the procedure to the patient and her family, all pros and cons were explained, all questions were answered. The patient signed the consent and then she was placed on the cardiac catheterization laboratory. Groin was prepped SL fashion local anesthesia was used. Sheath placed in the right femoral artery. Ginna right and left catheter were used to access the coronary system. Pigtail was used to access the left ventricular cavity. Left ventriculogram was done Aortic arch angiogram was done Sheath was exchanged into 9 Estonian sheath, intra-aortic balloon pump was placed and secured in place, good position, good wave forms At the end of the procedure the sheath was sutured in place FINDINGS: Hemodynamics LV 106/31, end-diastolic pressure of 31 Aorta 119/74 mean of 88 ANATOMY: Left Main is free of obstructive disease Left Anterior Descending has severe stenosis at the mid and distal portion Left Circumflex is totally occluded proximally Right Coronory Artery is large dominant artery with severe stenosis proximally, subtotal occlusion LV Gram is dilated with severe diffuse left ventricular hypokinesia estimated ejection fraction 20 percent Aorta evaluation done with aortic arch angiogram showing normal aortic arch, no dissection or aneurysm, normal origin of the right innominate artery, left subclavian artery and left carotid artery Intra-aortic balloon pump was placed with good positioning CONCLUSION: 1. Severe multivessel coronary artery disease 2. Severe dilated cardiomyopathy with diffuse left ventricular hypokinesia with estimated ejection fraction 20 percent 3. Normal aortic arch and great vessels of the neck 4. Successful intra-aortic balloon pump placement DISCUSSION AND RECOMMENDATION: Patient will be transferred to a tertiary care center for evaluation for possible bypass surgery versus high risk intervention Anesthesia Type: Conscious Sedation Estimated blood loss (mL): 25 ml Contrast Amount: 70 ml Total Radiation Dose: 708 mGy Post-Procedure Diagnosis Post-operative diagnosis: Cardiogenic shock Coronary artery disease, multivessel disease Congestive heart failure, acute left ventricular systolic dysfunction, ischemic cardiomyopathy Acute respiratory failure HIEU ADDISON MD Apr 06, 2019 11:18 am
--- NOTE | 2019-04-06 11:43 | NUR ---
PT ARRIVED BACK UP TO ROOM FROM [facility]. PT NOW ONE ON ONE WITH BALLOON PUMP. TO BE TRANSFERRED TO [facility].
--- NOTE | 2019-04-06 11:56 | NUR ---
CALLED [facility] TO GIVE REPORT TO ICU STAFF. ADMITTING DR. FLANNERY TO RECEIVE PT. EMS CONTACTED AND REPORT GIVEN. DUE TO PT HAVING BALLOON PUMP, [facility] WILL BE TRAVELING WITH PT VIA EMS DUE TO FLIGHT SERVICES DUE TO WEATHER.
--- NOTE | 2019-04-06 12:15 | NUR ---
EMS AND [facility] IN FACILITY. PREPPING PT FOR TRANSPORT.
[2019-04-06] MEDS ORDERED: FUROSEMIDE 40 MG/4 ML INJ (LASIX) IVP NR (13:15)
--- NOTE | 2019-04-06 13:15 | NUR ---
PT LEAVING FACILITY AT THIS TIME WITH EMS/[facility]. ALL PT BELONGINGS WERE SENT WITH FAMILY. CONTACTED [place] ICU STAFF TO INFORM THAT EMS WILL BE IN ROUTE. PT STABLE AT TIME OF LEAVING ROOM, VSS.
[2019-04-07] MEDS ORDERED: ANIDULAFUNGIN INJECTION 100 MG in NS (IVPB) 100 ML IV SCH (09:00)
--- NOTE | 2019-04-09 07:26 | Discharge Summary ---
Diagnosis/Chief Complaint Date of Admission Apr 04, 2019 at 01:48 Date of Discharge Apr 06, 2019 at 13:15 Discharge Time: 07:24 Discharge Diagnosis Large right pleural effusion. Pneumothorax. Pneumonia. Sepsis. Hemoptysis. Cardiogenic shock area Non-ST elevated myocardial infarction. Hypokalemia. Severe multivessel coronary artery disease. Severe dilated cardiomyopathy Reason Hospital Visit Patient came to the emergency room to And short of breath. Patient states she's been coughing 4 weeks. Patient having rib pain with cough. Patient spitting up blood. [place] patient complaining of chest pain, dyspnea and hemoptysis. Patient admitted to ICU Discharge Summary Procedures Pleural effusion tube. Coronary angiography. Discharge Physical Examination Allergies: Coded Allergies: cephalexin (Verified Allergy, Mild, 10/04/18) ciprofloxacin (Verified Allergy, Mild, 10/04/18) nitrofurantoin (Verified Allergy, Mild, 10/04/18) codeine (Unverified Allergy, Unknown, 04/04/19) sulfamethoxazole (Unverified Allergy, Unknown, 04/04/19) trimethoprim (Unverified Allergy, Unknown, 04/04/19) Uncoded Allergies: TAPE (Allergy, Intermediate, 10/04/18) Vitals & I&Os Vital Signs Date Time Temp Pulse Resp B/P (MAP) Pulse Ox O2 Delivery O2 Flow Rate FiO2 04/06/19 13:00 96 04/06/19 12:00 15 116/61 (79) 98 Mechanical Ventilator 30.00 04/06/19 11:52 21 04/06/19 00:00 36.8 Hospital Course If the coronary angiography patient was transferred to tertiary care center Labs (last 24 hrs) Laboratory Tests 04/04/19 00:17: White Blood Count 12.2H, Red Blood Count 5.20, Hemoglobin 14.5, Hematocrit 44, Mean Corpuscular Volume 85, Mean Corpuscular Hemoglobin 28, Mean Corpuscular Hemoglobin Concent 33, Red Cell Distribution Width 17.8H, Platelet Count 290, Mean Platelet Volume 10.7H, Neutrophils (%) (Auto) 82H, Lymphocytes (%) (Auto) 10L, Monocytes (%) (Auto) 8, Eosinophils (%) (Auto) 0, Basophils (%) (Auto) 0, Neutrophils # (Auto) 10.0H, Lymphocytes # (Auto) 1.2, Monocytes # (Auto) 0.9, Eosinophils # (Auto) 0.1, Basophils # (Auto) 0.0, Prothrombin Time 17.2H, INR Comment 1.4, Activated Partial Thromboplast Time 35, D-Dimer 1.13H, Sodium Level 134L, Potassium Level 3.6, Chloride Level 97L, Carbon Dioxide Level 21, Anion Gap 16H, Blood Urea Nitrogen 17, Creatinine 1.07, Estimat Glomerular Filtration Rate 54, BUN/Creatinine Ratio 16, Glucose Level 157H, Lactic Acid Level 2.62*H, Calcium Level 9.5, Corrected Calcium 9.7, Magnesium Level 1.8, Total Bilirubin 2.0H, Aspartate Amino Transf (AST/SGOT) 9, Alanine Aminotransferase (ALT/SGPT) 8, Alkaline Phosphatase 97, Myoglobin 76.1, Troponin I 0.080H, C-Reactive Protein High Sensitivity 18.93H, B-Type Natriuretic Peptide 1748.4H, Total Protein 7.5, Albumin 3.8 04/04/19 02:20: Lactic Acid Level 1.20 04/04/19 02:54: Urine Color YELLOW, Urine Clarity CLEAR, Urine pH 6.0, Urine Specific [place] <=1.005, Urine Protein NEGATIVE, Urine Glucose (UA) NEGATIVE, Urine Ketones NEGATIVE, Urine Nitrite NEGATIVE, Urine Bilirubin NEGATIVE, Urine Urobilinogen 0.2, Urine Leukocyte Esterase NEGATIVE, Urine RBC (Auto) NEGATIVE, Urine RBC NONE, Urine WBC NONE, Urine Squamous Epithelial Cells 2-5, Urine Crystals NONE, Urine Bacteria NEGATIVE, Urine Casts NONE, Urine Mucus NEGATIVE, Urine Culture Indicated NO 04/04/19 05:40: White Blood Count 11.7H, Red Blood Count 4.84, Hemoglobin 13.5, Hematocrit 41, Mean Corpuscular Volume 84, Mean Corpuscular Hemoglobin 28, Mean Corpuscular Hemoglobin Concent 33, Red Cell Distribution Width 17.5H, Platelet Count 240, Mean Platelet Volume 10.7H, Neutrophils (%) (Auto) 79H, Lymphocytes (%) (Auto) 13, Monocytes (%) (Auto) 8, Eosinophils (%) (Auto) 0, Basophils (%) (Auto) 0, Neutrophils # (Auto) 9.2H, Lymphocytes # (Auto) 1.5, Monocytes # (Auto) 1.0, Eosinophils # (Auto) 0.0, Basophils # (Auto) 0.0, Sodium Level 136, Potassium Level 3.4L, Chloride Level 100, Carbon Dioxide Level 21, Anion Gap 15H, Blood Urea Nitrogen 17, Creatinine 0.87, Estimat Glomerular Filtration Rate > 60, BUN/Creatinine Ratio 20, Glucose Level 125H, Calcium Level 9.1, Corrected Calcium 9.5, Magnesium Level 1.8, Total Bilirubin 1.7H, Aspartate Amino Transf (AST/SGOT) 11, Alanine Aminotransferase (ALT/SGPT) 7, Alkaline Phosphatase 86, Troponin I 0.182H, Total Protein 6.9, Albumin 3.5, Phosphorus Level 3.8 04/04/19 05:46: Triglycerides Level 90 04/04/19 06:50: TB Test (QFT) Nil 0.03, TB Test (QFT) Mitogen Minus Nil 8.18, TB Test (QFT) Antigen Minus Nil 1 0.00, TB Test (QFT) Antigen Minus Nil 2 <0.00, TB Test (QFT) Interpretation Negative 04/04/19 12:20: Body Fluid Source THORACEN, Body Fluid Color AUST[place], Body Fluid Appearance MKD CLDY, Body Fluid pH 7.3, Body Fluid WBC 4075, Body Fluid RBC 13744, Body Fluid Polynuclear WBCs 64, Body Fluid Mononuclear WBCs 2, Body Fluid Lymphocytes 33, Body Fluid Other Cells 1, Body Fluid Glucose 54, Body Fluid Total Protein 3.6, Body Fluid Lactate Dehydrogenase 887 04/04/19 15:22: Lyme Disease Screen IgG & IgM Ab 0.03, Lyme Antibody Interpretation Negative, Ehrlichia chaffeensis IgG Antibody <1:16, Ehrlichia chaffeensis IgM Antibody <1:10, Spotted Fever Group IgG Antibody <1:16, Spotted Fever Group IgM Antibody <1:10, [place] Antibody <1:20 04/04/19 18:18: Glucometer 166H 04/04/19 23:07: Glucometer 150H 04/04/19 23:29: Hemoglobin 12.5, Sodium Level 139, Potassium Level 3.7, Chloride Level 104, Carbon Dioxide Level 22, Anion Gap 13, Blood Urea Nitrogen 12, Creatinine 0.73, Estimat Glomerular Filtration Rate > 60, BUN/Creatinine Ratio 16, Glucose Level 152H, Lactic Acid Level 1.18, Calcium Level 8.6, Ionized Calcium (Measured) 1.14L, Ionized Calcium pH 7.45, Ionized Calcium (Corrected) 1.18, Magnesium Leve l 1.6, Troponin I 0.510*H, B-Type Natriuretic Peptide 1831.9H, Albumin 3.0L 04/04/19 23:45: Blood Gas Puncture Site R RAD, Blood Gas Patient Temperature 36.5, Arterial Blood pH 7.40, Arterial Blood Partial Pressure CO2 41, Arterial Blood Partial Pressure O2 89, Arterial Blood HCO3 25, Arterial Blood Total CO2 26.7, Arterial Blood Oxygen Saturation 98, Arterial Blood Base Excess 1.1, Scott Test YES-POS, Blood Gas Ventilator Setting YES, Blood Gas Inspired Oxygen 40% 04/05/19 01:50: Blood Gas Puncture Site CENTRAL LINE, Blood Gas Patient Temperature 36.5, Arterial Blood pH 7.39, Arterial Blood Partial Pressure CO2 45, Arterial Blood Partial Pressure O2 54L, Arterial Blood HCO3 27, Arterial Blood Total CO2 27.9, Arterial Blood Oxygen Saturation 81L, Arterial Blood Base Excess 1.9, Scott Test NA, Blood Gas Ventilator Setting YES, Blood Gas Inspired Oxygen 36% 04/05/19 03:25: White Blood Count 8.5, Red Blood Count 4.23L, Hemoglobin 11.7, Hematocrit 36, Mean Corpuscular Volume 86, Mean Corpuscular Hemoglobin 28, Mean Corpuscular Hemoglobin Concent 32, Red Cell Distribution Width 17.3H, Platelet Count 218, Mean Platelet Volume 10.4, Neutrophils (%) (Auto) 79H, Lymphocytes (%) (Auto) 13, Monocytes (%) (Auto) 7, Eosinophils (%) (Auto) 1, Basophils (%) (Auto) 0, Neutrophils # (Auto) 6.8, Lymphocytes # (Auto) 1.1, Monocytes # (Auto) 0.6, Eosinophils # (Auto) 0.0, Basophils # (Auto) 0.0, Sodium Level 140, Potassium Level 3.5L, Chloride Level 106, Carbon Dioxide Level 22, Anion Gap 12, Blood Urea Nitrogen 10, Creatinine 0.71, Estimat Glomerular Filtration Rate > 60, BUN/Creatinine Ratio 14, Glucose Level 153H, Calcium Level 8.6, Phosphorus Level 3.7, Magnesium Level 1.6, Triglycerides Level 108, Cholesterol Level 134, LDL Cholesterol Direct 112, VLDL Cholesterol 22, HDL Cholesterol 19L 04/05/19 12:23: Glucometer 135H 04/05/19 17:41: Glucometer 137H 04/05/19 18:10: Vancomycin Level Trough 22.5H 04/05/19 20:04: Glucometer 146H 04/06/19 00:19: Glucometer 154H 04/06/19 03:00: White Blood Count 7.4, Red Blood Count 4.28L, Hemoglobin 11.8, Hematocrit 37, Mean Corpuscular Volume 86, Mean Corpuscular Hemoglobin 28, Mean Corpuscular Hemoglobin Concent 32, Red Cell Distribution Width 17.2H, Platelet Count 206, Mean Platelet Volume 9.6, Neutrophils (%) (Auto) 74, Lymphocytes (%) (Auto) 14, Monocytes (%) (Auto) 10, Eosinophils (%) (Auto) 2, Basophils (%) (Auto) 0, Neutrophils # (Auto) 5.4, Lymphocytes # (Auto) 1.1, Monocytes # (Auto) 0.7, Eosinophils # (Auto) 0.1, Basophils # (Auto) 0.0, Blood Gas Puncture Site LEFT ARTLINE, Blood Gas Patient Temperature 36.8, Arterial Blood pH 7.42, Arterial Blood Partial Pressure CO2 38, Arterial Blood Partial Pressure O2 67L, Arterial Blood HCO3 24, Arterial Blood Total CO2 25.6, Arterial Blood Oxygen Saturation 93L, Arterial Blood Base Excess 0.5, Scott Test POSITIVE, Blood Gas Ventilator Setting YES, Blood Gas Inspired Oxygen 25%, Sodium Level 138, Potassium Level 4.0, Chloride Level 108H, Carbon Dioxide Level 20L, Anion Gap 10, Blood Urea Nitrogen 6L, Creatinine 0.67, Estimat Glomerular Filtration Rate > 60, BUN/Cr eatinine Ratio 9, Glucose Level 147H, Calcium Level 8.1L, Phosphorus Level 3.4, Magnesium Level 1.9, Triglycerides Level 105 04/06/19 06:13: Glucometer 135H 04/06/19 09:23: HIV (1&2) Ag and Ab Screen Referral Non-Reactive Microbiology 04/04/19 Mycobacterial Culture - Preliminary, Resulted 04/04/19 Mycobacterial Culture - Preliminary, Resulted 04/04/19 Urine Culture - Final, Complete 3 or more isolates 04/04/19 Blood Culture - Preliminary, Resulted No growth Laboratory Tests 04/04/19 00:17 04/04/19 05:40 04/04/19 23:29 04/05/19 03:25 04/06/19 03:00 Pending Labs Microbiology Date/Time Source Procedure Growth Status 04/04/19 13:03 Pleural Fluid Mycobacterial Culture - Preliminary Resulted 04/04/19 12:20 Thoracentesis Fluid Gram Stain - Final Complete 04/04/19 12:20 Thoracentesis Fluid Body Fluid Culture - Final No growth Complete 04/04/19 11:50 Bronch Washings Bilateral Mycobacterial Culture - Preliminary Resulted 04/04/19 11:50 Bronch Washings Bilateral Gram Stain - Final Resulted 04/04/19 11:50 Bronchial Culture - Final Bacillus sp not B. anthracis Resulted 04/04/19 11:50 Fungal Culture 1 - Preliminary Keyanna glabrata Resulted 04/04/19 04:30 Nasal MRSA Screen - Final MRSA not isolated Complete 04/04/19 02:54 Urine Clean Catch Urine Culture - Final 3 or more isolates Complete 04/04/19 00:35 Peripheral Arm, Right Blood Culture - Preliminary No growth Resulted 04/04/19 00:17 Peripheral Lt Ac Blood Culture - Preliminary No growth Resulted Laboratory Tests 04/04/19 00:17: White Blood Count 12.2, Red Blood Count 5.20, Hemoglobin 14.5, Hematocrit 44, Mean Corpuscular Volume 85, Mean Corpuscular Hemoglobin 28, Mean Corpuscular Hemoglobin Concent 33, Red Cell Distribution Width 17.8, Platelet Count 290, Mean Platelet Volume 10.7, Neutrophils (%) (Auto) 82, Lymphocytes (%) (Auto) 10, Monocytes (%) (Auto) 8, Eosinophils (%) (Auto) 0, Basophils (%) (Auto) 0, Neutro phils # (Auto) 10.0, Lymphocytes # (Auto) 1.2, Monocytes # (Auto) 0.9, Eosinophils # (Auto) 0.1, Basophils # (Auto) 0.0, Prothrombin Time 17.2, INR Comment 1.4, Activated Partial Thromboplast Time 35, D-Dimer 1.13, Sodium Level 134, Potassium Level 3.6, Chloride Level 97, Carbon Dioxide Level 21, Anion Gap 16, Blood Urea Nitrogen 17, Creatinine 1.07, Estimat Glomerular Filtration Rate 54, BUN/Creatinine Ratio 16, Glucose Level 157, Lactic Acid Level 2.62, Calcium Level 9.5, Corrected Calcium 9.7, Magnesium Level 1.8, Total Bilirubin 2.0, Aspartate Amino Transf (AST/SGOT) 9, Alanine Aminotransferase (ALT/SGPT) 8, Alkaline Phosphatase 97, Myoglobin 76.1, Troponin I 0.080, C-Reactive Protein Hi gh Sensitivity 18.93, B-Type Natriuretic Peptide 1748.4, Total Protein 7.5, Albumin 3.8 04/04/19 02:20: Lactic Acid Level 1.20 04/04/19 02:54: Urine Color YELLOW, Urine Clarity CLEAR, Urine pH 6.0, Urine Specific [place] <=1.005, Urine Protein NEGATIVE, Urine Glucose (UA) NEGATIVE, Urine Ketones NEGATIVE, Urine Nitrite NEGATIVE, Urine Bilirubin NEGATIVE, Urine Urobilinogen 0.2, Urine Leukocyte Esterase NEGATIVE, Urine RBC (Auto) NEGATIVE, Urine RBC NONE, Urine WBC NONE, Urine Squamous Epithelial Cells 2-5, Urine Crystals NONE, Urine Bacteria NEGATIVE, Urine Casts NONE, Urine Mucus NEGATIVE, Urine Culture Indicated NO 04/04/19 05:40: White Blood Count 11.7, Red Blood Count 4.84, Hemoglobin 13.5, Hematocrit 41, Mean Corpuscular Volume 84, Mean Corpuscular Hemoglobin 28, Mean Corpuscular Hemoglobin Concent 33, Red Cell Distribution Width 17.5, Platelet Count 240, Mean Platelet Volume 10.7, Neutrophils (%) (Auto) 79, Lymphocytes (%) (Auto) 13, Monocytes (%) (Auto) 8, Eosinophils (%) (Auto) 0, Basophils (%) (Auto) 0, Neutrophils # (Auto) 9.2, Lymphocytes # (Auto) 1.5, Monocytes # (Auto) 1.0, Eosinophils # (Auto) 0.0, Basophils # (Auto) 0.0, Sodium Level 136, Potassium Level 3.4, Chloride Level 100, Carbon Dioxide Level 21, Anion Gap 15, Blood Urea Nitrogen 17, Creatinine 0.87, Estimat Glomerular Filtration Rate > 60, BUN/ Creatinine Ratio 20, Glucose Level 125, Calcium Level 9.1, Corrected Calcium 9.5, Magnesium Level 1.8, Total Bilirubin 1.7, Aspartate Amino Transf (AST/SGOT) 11, Alanine Aminotransferase (ALT/SGPT) 7, Alkaline Phosphatase 86, Troponin I 0.182, Total Protein 6.9, Albumin 3.5, Phosphorus Level 3.8 04/04/19 05:46: Triglycerides Level 90 04/04/19 06:50: TB Test (QFT) Nil 0.03, TB Test (QFT) Mitogen Minus Nil 8.18, TB Test (QFT) Antigen Minus Nil 1 0.00, TB Test (QFT) Antigen Minus Nil 2 <0.00, TB Test (QFT) Interpretation Negative 04/04/19 12:20: Body Fluid Source THORACEN, Body Fluid Color [place], Body Fluid Appearance MKD CLDY, Body Fluid pH 7.3, Body Fluid WBC 4075, Body Fluid RBC 98560, Body Fluid Polynuclear WBCs 64, Body Fluid Mononuclear WBCs 2, Body Fluid Lymphocytes 33, Body Fluid Other Cells 1, Body Fluid Glucose 54, Body Fluid Total Protein 3.6, Body Fluid Lactate Dehydrogenase 887 04/04/19 15:22: Lyme Disease Screen IgG & IgM Ab 0.03, Lyme Antibody Interpretation Negative, Ehrlichia chaffeensis IgG Antibody <1:16, Ehrlichia chaffeensis IgM Antibody <1:10, Spotted Fever Group IgG Antibody <1:16, Spotted Fever Group IgM Antibody <1:10, [place] Antibody <1:20 04/04/19 18:18: Glucometer 166 04/04/19 23:07: Glucometer 150 04/04/19 23:29: Hemoglobin 12.5, Sodium Level 139, Potassium Level 3.7, Chloride Level 104, Carbon Dioxide Level 22, Anion Gap 13, Blood Urea Nitrogen 12, Creatinine 0.73, Estimat Glomerular Filtration Rate > 60, BUN/Creatinine Ratio 16, Glucose Level 152, Lactic Acid Level 1.18, Calcium Level 8.6, Ionized Calcium (Measured) 1.14, Ionized Calcium pH 7.45, Ionized Calcium (Corrected) 1.18, Magnesium Level 1.6, Troponin I 0.510, B-Type Natriuretic Peptide 1831.9, Albumin 3.0 04/04/19 23:45: Blood Gas Puncture Site R RAD, Blood Gas Patient Temperature 36.5, Arterial Blood pH 7.40, Arterial Blood Partial Pressure CO2 41, Arterial Blood Partial Pressure O2 89, Arterial Blood HCO3 25, Arterial Blood Total CO2 26.7, Arterial Blood Oxygen Saturation 98, Arterial Blood Base Excess 1.1, Scott Test YES-POS, Blood Gas Ventilator Setting YES, Blood Gas Inspired Oxygen 40% 04/05/19 01:50: Blood Gas Puncture Site CENTRAL LINE, Blood Gas Patient Temperature 36.5, Arteri al Blood pH 7.39, Arterial Blood Partial Pressure CO2 45, Arterial Blood Partial Pressure O2 54, Arterial Blood HCO3 27, Arterial Blood Total CO2 27.9, Arterial Blood Oxygen Saturation 81, Arterial Blood Base Excess 1.9, Scott Test NA, Blood Gas Ventilator Setting YES, Blood Gas Inspired Oxygen 36% 04/05/19 03:25: White Blood Count 8.5, Red Blood Count 4.23, Hemoglobin 11.7, Hematocrit 36, Mean Corpuscular Volume 86, Mean Corpuscular Hemoglobin 28, Mean Corpuscular Hemoglobin Concent 32, Red Cell Distribution Width 17.3, Platelet Count 218, Mean Platelet Volume 10.4, Neutrophils (%) (Auto) 79, Lymphocytes (%) (Auto) 13, Monocytes (%) (Auto) 7, Eosinophils (%) (Auto) 1, Basophils (%) (Auto) 0, Neutrophils # (Auto) 6.8, Lymphocytes # (Auto) 1.1, Monocytes # (Auto) 0.6, E osinophils # (Auto) 0.0, Basophils # (Auto) 0.0, Sodium Level 140, Potassium Level 3.5, Chloride Level 106, Carbon Dioxide Level 22, Anion Gap 12, Blood Urea Nitrogen 10, Creatinine 0.71, Estimat Glomerular Filtration Rate > 60, BUN/Creatinine Ratio 14, Glucose Level 153, Calcium Level 8.6, Phosphorus Level 3.7, Magnesium Level 1.6, Triglycerides Level 108, Cholesterol Level 134, LDL Cholesterol Direct 112, VLDL Cholesterol 22, HDL Cholesterol 19 04/05/19 12:23: Glucometer 135 04/05/19 17:41: Glucometer 137 04/05/19 18:10: Vancomycin Level Trough 22.5 04/05/19 20:04: Glucometer 146 04/06/19 00:19: Glucometer 154 04/06/19 03:00: White Blood Count 7.4, Red Blood Count 4.28, Hemoglobin 11.8, Hematocrit 37, Mean Corpuscular Volume 86, Mean Corpuscular Hemoglobin 28, Mean Corpuscular Hemoglobin Concent 32, Red Cell Distribution Width 17.2, Platelet Count 206, Mean Platelet Volume 9.6, Neutrophils (%) (Auto) 74, Lymphocytes (%) (Auto) 14, Monocytes (%) (Auto) 10, Eosinophils (%) (Auto) 2, Basophils (%) (Auto) 0, Neutrophils # (Auto) 5.4, Lymphocytes # (Auto) 1.1, Monocytes # (Auto) 0.7, Eosinophils # (Auto) 0.1, Basophils # (Auto) 0.0, Blood Gas Puncture Site LEFT ARTLINE, Blood Gas Patient Temperature 36.8, Arterial Blood pH 7.42, Arterial Blood Partial Pressure CO2 38, Arterial Blood Partial Pressure O2 67, Arterial Blood HCO3 24, Arterial Blood Total CO2 25.6, Arterial Blood Oxygen Saturation 93, Arterial Blood Base Excess 0.5, Scott Test POSITIVE, Blood Gas Ventilator Setting YES, Blood Gas Inspired Oxygen 25%, Sodium Level 138, Potassium Level 4.0, Chloride Level 108, Carbon Dioxide Level 20, Anion Gap 10, Blood Urea Nitrogen 6, Creatinine 0.67, Estimat Glomerular Filtration Rate > 60, BUN/Creatinine Ratio 9, Glucose Level 147, Calcium Level 8.1, Phosphorus Level 3.4, Magnesium Level 1.9, Triglycerides Level 105 04/06/19 06:13: Glucometer 135 04/06/19 09:23: HIV (1&2) Ag and Ab Screen Referral Non-Reactive Discharge Home Medications: Active Scripts Active Reported Quetiapine Fumarate 100 Mg Tablet 100 Mg PO HS Instructions to patient/family Please see electronic discharge instructions given to patient. Clinical Quality Measures DVT/VTE Risk/Contraindication: Risk Factor Score Per Nursin RFS Level Per Nursing on Admit: 4+=Very High Contraindications-Pharm: Other *list below* SUKI HERNADEZ DO Apr 09, 2019 07:26
== END 2019-04-06 13:15 | disposition designated cancer center or children's hospital (05) | DRG 853 ==
LOC: EDUNIT# 00:08 → ER 00:09 → ICU 01:48
PROVIDERS: ADMIT Family Medicine; ATTEND Family Medicine
PROC: 0BH17EZ Insertion of Endotracheal Airway into Trachea, Via Natural or Artificial Opening (ICD-10-PCS; principal; 2019-04-04)
PROC: 5A1945Z Respiratory Ventilation, 24-96 Consecutive Hours (ICD-10-PCS; 2019-04-04)
PROC: 0B938ZX Drainage of Right Main Bronchus, Via Natural or Artificial Opening Endoscopic, Diagnostic (ICD-10-PCS; 2019-04-04)
PROC: 0B978ZX Drainage of Left Main Bronchus, Via Natural or Artificial Opening Endoscopic, Diagnostic (ICD-10-PCS; 2019-04-04)
PROC: 0W9930Z Drainage of Right Pleural Cavity with Drainage Device, Percutaneous Approach (ICD-10-PCS; 2019-04-04)
PROC: 02HV33Z Insertion of Infusion Device into Superior Vena Cava, Percutaneous Approach (ICD-10-PCS; 2019-04-04)
PROC: 5A02210 Assistance with Cardiac Output using Balloon Pump, Continuous (ICD-10-PCS; 2019-04-06)
PROC: 4A023N7 Measurement of Cardiac Sampling and Pressure, Left Heart, Percutaneous Approach (ICD-10-PCS; 2019-04-06)
PROC: B2151ZZ Fluoroscopy of Left Heart using Low Osmolar Contrast (ICD-10-PCS; 2019-04-06)
PROC: B2111ZZ Fluoroscopy of Multiple Coronary Arteries using Low Osmolar Contrast (ICD-10-PCS; 2019-04-06)
PROC: B3101ZZ Fluoroscopy of Thoracic Aorta using Low Osmolar Contrast (ICD-10-PCS; 2019-04-06)
DX: A41.9 Sepsis, unspecified organism (principal); J18.9 Pneumonia, unspecified organism; J86.9 Pyothorax without fistula; I21.A1 Myocardial infarction type 2; I50.21 Acute systolic (congestive) heart failure; R57.0 Cardiogenic shock; J96.00 Acute respiratory failure, unspecified whether with hypoxia or hypercapnia; J90 Pleural effusion, not elsewhere classified; J98.11 Atelectasis; R04.2 Hemoptysis; R65.20 Severe sepsis without septic shock; Z66 Do not resuscitate; I25.5 Ischemic cardiomyopathy; E87.6 Hypokalemia; F17.210 Nicotine dependence, cigarettes, uncomplicated; Z82.49 Family history of ischemic heart disease and other diseases of the circulatory system
CPT/HCPCS: 33967; 36221; 36415; 36600; 71045; 71275; 80048; 80053; 80061; 80202; 81000; 82040; 82330; 82805; 82945; 82962; 83605; 83615; 83735; 83874; 83880; 83986; 84100; 84157; 84478; 84484; 85018; 85025; 85379; 85610; 85730; 86141; 86480; 86618; 86666; 86668; 86703; 86757; 87015; 87040; 87070; 87077; 87081; 87088; 87101; 87106; 87116; 87205; 87206; 88112; 88305; 89051; 93005; 93041; 93458; 94002; 94003; 94640; 94799; 96365; 96372; 96375